=== PATIENT | female | born 1950 | race Caucasian/White ===

== ENCOUNTER → 2017-11-05 | Outpatient (REF) | payer BC, OTHER ==
[2017-11-05 19:31] LABS: SLIDE REVIEW Report; SOURCE PERIPHERAL SMEAR
[2017-11-05 20:34] LABS: ERYTHROCYTE SEDIMENTATION RATE 45 mm/hr (0-30)
[2017-11-07 14:15] LABS: ANTINUCLEAR ANTIBODIES DIRECT Negative (Negative)
== END ==
LOC: M LAB REF 17:14
DX: D72.829 Elevated white blood cell count, unspecified (principal)
CPT/HCPCS: 85652

== ENCOUNTER → 2018-08-27 | Outpatient (CLI) | payer MEDICARE ==
[~2018-08-27] MED LIST: AMBI5TAB PO; ASPI1TAB PO; ASPI81TA60 PO; AUGM875T28 PO; BASA100I PO; BIMA01SOL OU; COZA100T2 PO; D 1010004 PO; D200CAP3 PO; FERR325T16 PO; FISH5CAP PO; INSUH10VL SC; INSULADS SC; LIPI20TA PO; LOSA100T50 PO; LOSA50TA88 PO; METO5TAB2 PO; OMEP20CA3 PO; PRIL20CA9 PO; REGL5TAB2 PO; SILV1CRE60 TOP; TIMO5OPD OU; TYLE650T30 PO; VITA10002 PO; VITA100067 PO; VITA100T59 PO; VITA2000 PO
[2018-08-27 18:20] LABS: BASO # 0.2 10^3/uL (0.0-0.2); BASO % 1.1 % (0.0-1.0); EOS # 0.4 10^3/uL (0.0-0.50); EOS % 2.7 % (0.0-3.0); HEMATOCRIT 36.3 % (36.0-47.0); HEMOGLOBIN 11.5 g/dl (12.0-15.5); LYMPH % 21.1 % (24.0-44.0); MEAN CORPUSCULAR HGB CONC 31.7 g/dl (32.0-36.5); MEAN CORPUSCULAR VOLUME 97.8 fl (80.0-96.0); MONO % 7.3 % (0.0-5.0); NEUTROPHILS # 9.7 10^3/uL (1.8-7.7); NEUTROPHILS % 67.5 % (36.0-66.0); PLATELET COUNT, AUTOMATED 339 10^3/uL (150-450); RED BLOOD COUNT 3.71 10^6/uL (4.00-5.40); WHITE BLOOD COUNT 14.3 10^3/uL (4.0-10.0)
[2018-08-27 18:39] LABS: CALCIUM LEVEL 8.8 MG/DL (8.8-10.2); CREATININE FOR GFR 1.56 MG/DL (0.55-1.30); POTASSIUM SERUM 4.6 MEQ/L (3.5-5.1)
== END ==
LOC: M SMT 13:27
PROVIDERS: ATTEND Internal Medicine Cardiovascular Disease
DX: Z01.818 Encounter for other preprocedural examination (principal)

== ENCOUNTER 2018-09-03 07:37 | Day surgery (SDC) | payer MEDICARE ==
[~2018-09-03] VITALS: Ht 157.5 cm; Wt 110.7 kg
[2018-09-03] MEDS ORDERED: NS 1,000 ML IV ONE (08:45)
[2018-09-03] MEDS ORDERED: PROPOFOL 200 MG/20 ML VIAL As Ordered ONE ×2 (09:37→09:50)
[2018-09-03] MEDS ORDERED: LIDOCAINE 2% INJ 100 MG/5 ML SDV (FOR ANES.) As Ordered ONE (09:37)
--- NOTE | 2018-09-03 10:01 | ROOR ---
Patient Name: Heather Barreto Procedure Date: 09/03/2018 9:36 AM Date of : 1950 Age: 68 Room: [facility] Gender: Female Note Status: Finalized Procedure: Colonoscopy Indications: High risk colon cancer surveillance: Personal history of colonic polyps, Last colonoscopy: June 2015, Family history of colon cancer in a first-degree relative Providers: Magdaleno BLACKMON MD Referring MD: NATASHA CHANEY JR, MD Requesting Provider: Medicines: Monitored Anesthesia Care Complications: No immediate complications. Procedure: Pre-Anesthesia Assessment: - The heart rate, respiratory rate, oxygen saturations, blood pressure, adequacy of pulmonary ventilation, and response to care were monitored throughout the procedure. The Colonoscope was introduced through the anus and advanced to the cecum, identified by appendiceal orifice and ileocecal valve. The colonoscopy was performed without difficulty. The patient tolerated the procedure well. The quality of the bowel preparation was good. Findings: The perianal and digital rectal examinations were normal. Three sessile polyps were found in the splenic flexure and cecum. The polyps were 4 to 5 mm in size. These polyps were removed with a cold snare. Resection and retrieval were complete. Mild sigmoid diverticulosis and small internal hemorrhoids. The exam was otherwise without abnormality on direct and retroflexion views. Impression: - Three 4 to 5 mm polyps at the splenic flexure and in the cecum, removed with a cold snare. Resected and retrieved. - Mild sigmoid diverticulosis and small internal hemorrhoids. - The examination was otherwise normal on direct and retroflexion views. Recommendation: - Repeat colonoscopy in 3 years for surveillance. Magdaleno Blackmon MD Magdaleno BLACKMON MD 09/03/2018 10:01:12 AM This report has been signed electronically. Number of Addenda: 0 Note Initiated On: 09/03/2018 9:36 AM Estimated Blood Loss: Estimated blood loss: none.
[2018-09-03 10:26] VITALS: BP 117/58
== END 2018-09-03 10:37 | disposition home or self-care (01) ==
LOC: M OPP 07:37
PROVIDERS: ATTEND Internal Medicine Gastroenterology
DX: D12.0 Benign neoplasm of cecum (principal); D12.3 Benign neoplasm of transverse colon; K57.30 Diverticulosis of large intestine without perforation or abscess without bleeding; K64.8 Other hemorrhoids; Z86.010 Personal history of colon polyps; Z80.0 Family history of malignant neoplasm of digestive organs

== ENCOUNTER 2018-11-17 12:56 | Observation (INO) | payer MEDICARE ==
[~2018-11-17] VITALS: Ht 157.5 cm; Wt 114.1 kg
[~2018-11-17 12:56] MED LIST changes: -ASCO500T PO; -CENT1TAB PO; -COLA100C5 PO; -INSUDET SC; -INSUHUMDS SC; -LATA0.0015 OU; -METO1TAB87 PO; -OXYC1TAB23 PO; -WARF4TAB52 PO
[2018-11-17] MEDS ORDERED: WARF4TAB52 PO (13:26)
[2018-11-17] MEDS ORDERED: METO1TAB87 PO (13:26)
[2018-11-17] MEDS ORDERED: OXYC1TAB23 PO (13:26)
[2018-11-17] MEDS ORDERED: LATA0.0015 OU (13:26)
[2018-11-17] MEDS ORDERED: TIMO0.5S29 OU (13:26)
[2018-11-17] MEDS ORDERED: CENT1TAB PO (13:26)
[2018-11-17 14:00] LABS: BASO # 0.1 10^3/uL (0.0-0.2); BASO % 0.6 % (0.0-1.0); EOS # 0.1 10^3/uL (0.0-0.50); EOS % 0.3 % (0.0-3.0); HEMATOCRIT 29.8 % (36.0-47.0); HEMOGLOBIN 9.4 g/dl (12.0-15.5); LYMPH # 1.9 10^3/uL (1.5-4.5); LYMPH % 9.8 % (24.0-44.0); MEAN CORPUSCULAR HEMOGLOBIN 30.5 pg (27.0-33.0); MEAN CORPUSCULAR HGB CONC 31.5 g/dl (32.0-36.5); MEAN CORPUSCULAR VOLUME 96.8 fl (80.0-96.0); MONO # 1.3 10^3/uL (0.0-0.8); MONO % 6.5 % (0.0-5.0); NEUTROPHILS # 15.9 10^3/uL (1.8-7.7); NEUTROPHILS % 80.3 % (36.0-66.0); PLATELET COUNT, AUTOMATED 218 10^3/uL (150-450); RED BLOOD COUNT 3.08 10^6/uL (4.00-5.40); WHITE BLOOD COUNT 19.8 10^3/uL (4.0-10.0)
[2018-11-17 14:10] LABS: INR 2.34; PROTHROMBIN TIME 26.1 SECONDS (12.1-14.4)
[2018-11-17 14:11] LABS: PARTIAL THROMBOPLASTIN TIME 44.1 SECONDS (25.4-37.6)
[2018-11-17 14:33] LABS: ALBUMIN 2.9 GM/DL (3.2-5.2); BILIRUBIN,DIRECT 0.3 MG/DL (0.0-0.2); BILIRUBIN,TOTAL 0.7 MG/DL (0.2-1.0); CALCIUM LEVEL 8.5 MG/DL (8.8-10.2); CREATININE FOR GFR 1.04 MG/DL (0.55-1.30); GLOMERULAR FILTRATION RATE 55.9 (>45); MB/CK RELATIVE INDEX 5.23 (< OR =4); TROPONIN I 0.36 NG/ML (< 0.10)
--- NOTE | 2018-11-17 16:10 | REP ---
CT Head without contrast HISTORY: Altered mental status COMPARISON: None Areas of decreased attenuation are present in the periventricular white matter. This represents small-vessel ischemic disease. There is no intraparenchymal hemorrhage, acute infarct, mass or midline shift. The ventricular system and cortical sulci are dilated consistent with mild volume loss. There is no extra cerebral collection. There is no fracture. The visualized sinuses are clear. IMPRESSION: 1. Small vessel ischemic disease. 2. Mild volume loss. Electronically Signed by David Don MD 11/17/2018 04:00 P
[2018-11-17] MEDS ORDERED: WARFARIN SOD 1 MG TAB PO SCH (17:00)
--- NOTE | 2018-11-17 17:00 | REP ---
REASON: Leukocytosis. COMPARISON: Chest CT 01/19/2018. The examination was ordered and performed without intravenous contrast which decreases the sensitivity of the exam. There is respiratory motion artifact on all images further decreasing the exam. Patient also gives a history of recent surgery. Patient has a history of previous bariatric surgery with coronary arterial bypass and prostatic aortic valve replacement which has all taken place since prior exam. There is no evidence of mediastinal or hilar adenopathy. There is abnormal mediastinal widening with streaky densities along with air densities in the anterior mediastinum between the postoperative sternal changes and the anterior wall of the ascending aorta and anterior wall of the left brachiocephalic vein. This all represents a change from the prior exam. Note is made of multiple sternal wires from previous median sternotomy causing spray artifact obscuring the findings somewhat. There are small to moderate bilateral pleural effusions right greater than left. There is a small pericardial effusion. Limited evaluation of the imaged upper abdomen shows no gross abnormalities. Left upper quadrant postoperative changes are noted. There is significant motion artifact on all of those images. Evaluation of the osseous structures again shows sternal wires from previous medial sternotomy. There are spinal degenerative changes. Evaluation of the lung leroy shows respiratory motion artifact throughout the exam obscuring fine parenchymal detail. Patchy opacities are seen in the lung bases likely secondary to compressive subsegmental atelectatic changes and or inflammatory change from infectious etiology. IMPRESSION:1. Abnormal mediastinal widening and related anterior mediastinal findings of streaky opacities with air densities. My concern is that this represents infection, as such, I can not rule out the possibility of Sandip's angina. 2. Pleural effusions as described above. 3. Lung base opacities as described above. 4. Other findings and exam limitations as described above. A phone call was placed to Dr. Magdaleno Porter the patient's health care provider in the emergency room department to discuss these findings. Electronically Signed by Finesse Hodges DO 11/18/2018 03:26 P
[2018-11-17] MEDS ORDERED: COLA100C5 PO (17:56)
[2018-11-17] MEDS ORDERED: ASCO500T PO (17:56)
[2018-11-17] MEDS ORDERED: GLUCAGON FOR INJ 1 MG VIAL (J1610) SC PRN (18:00)
[2018-11-17] MEDS ORDERED: DEXTROSE 50% 50 ML SYRINGE IV PRN (18:00)
[2018-11-17] MEDS ORDERED: GLUCOSE 4 GM CHEW TABLET PO PRN (18:00)
--- NOTE | 2018-11-17 18:04 | HPEPDOC ---
General Date of Admission 11/17/18 Date of Service: November 17, 2018 Attending Physician: KIA KESSLER MD Chief Complaint The patient is a 68-year-old female admitted with a reason for visit of Low Bloo d Sugar. Source: Patient, Family Exam Limitations: No limitations Timing/Duration: 1-3 hours Severity: Moderate Associated Symptoms: Diaphoresis, Malaise, Dizziness History of Present Illness 68 years old white female with past medical history of bypass surgery with 2 wall replacement at [facility] about a week ago and she was discharged home from [facility] yesterday. Diaphoresis, confusion, slurred speech and was brought to ER, which she was found to have blood sugar of 28, and patient be admitted for follow-up of her fingerstick blood sugar. Patient takes regular long-acting insulin, but has decreased by mouth intake since the surgery. Home Medications Scheduled Ascorbic Acid (Ascorbic Acid) 500 Mg Tablet, 1,000 MG PO DAILY, (Reported) Aspirin (Aspirin EC) 81 Mg Tab, 81 MG PO DAILY, (Reported) Atorvastatin Calcium (Lipitor) 20 Mg Tab, 20 MG PO DAILY, (Reported) Cholecalciferol (Vitamin D3) (Vitamin D3) 2,000 Unit Cap, 2,000 UNIT PO DAILY, (Reported) Ferrous Gluconate (Ferrous Gluconate) 324 Mg Tab, 324 MG PO DAILY, (Reported) Insulin Glargine,Hum.rec.anlog (Basaglar Kwikpen U-100) 100 Unit/Ml Inj, 38 UNIT PO BID, (Reported) FAMILY STATES INSULINS MAY NEED TO BE ADJUSTED DUE TO LOW BLOOD SUGARS SINCE SURGERY AT [facility] Insulin Human Lispro (Novolog) 100 U/Ml Inj, 1 DOSE SC AC, (Reported) SLIDING SCALE - FAMILY STATES INSULINS MAY NEED TO BE ADJUSTED DUE TO LOW BLOOD SUGARS SINCE SURGERY AT [facility] Latanoprost/Pf (Latanoprost 0.005% Eye Drop) 7.5 Ml Drops, 1 DROP OU QHS, (Reported) Metoclopramide HCl (Metoclopramide HCl) 5 Mg Tab, 5 MG PO DAILY, (Reported) Metoprolol Tartrate (Metoprolol Tartrate) 25 Mg Tablet, 37.5 MG PO BID, (Reported) Multivit-Min/FA/Lycopen/Lutein (Centrum Silver Tablet) 1 Each Tablet, 1 TAB PO DAILY, (Reported) Omeprazole (Omeprazole) 20 Mg Cap, 40 MG PO DAILY, (Reported) Timolol Maleate (Timolol Maleate) 0.5% 5ML Drops, 1 DROP OU DAILY, (Reported) Warfarin Sodium (Warfarin Sodium) 1 Mg Tablet, 2 MG PO QPM, (Reported) Zolpidem Tartrate (Ambien) 5 Mg Tab, 5 MG PO QHS, (Reported) Scheduled PRN Docusate Sodium (Colace) 100 Mg Capsule, 100 MG PO DAILY PRN for CONSTIPATION, (Reported) Oxycodone HCl/Acetaminophen (Oxycodone-Acetaminophen 5-325) 1 Each Tablet, 1 TAB PO QID PRN for PAIN, (Reported) Allergies Coded Allergies: naproxen (Verified Allergy, Mild, Rash, 11/17/18) Past Medical History Medical History Diabetes mellitus, hypertension, hyperlipidemia Surgical History Hysterectomy, gastric bypass surgery and the coronary bypass surgery Social History * Smoker: former Smoker, quit greater than 1 year Alcohol: Denies A-FIB/CHADSVASC A-FIB History Current/History of A-Fib/PAF?: Yes Current Oral Anticoagulant The: Yes Review of Systems Constitutional: Reports: Chills, Malaise, Weakness, Fatigue Eyes: Denies: Pain, Vision change, Conjunctivae inflammation, Eyelid inflammation, Redness, Other ENT: Denies: Head Aches, Ear Pain, Dysphagia, Sinus Congestion, Post Nasal Drip, Sore Throat, Epistaxis, Other Symptoms Skin: Denies: Rash, Lesions, Jaundice, Bruising, Itching, Dry, Breakdown, Nail Changes, Other Pulmonary: Denies: Dyspnea, Cough, Pleuritic Chest Pain, Other Symptoms Cardiovascular: Denies: Chest Pain, Palpitations, Orthopnea, Paroxysmal Noc. Dyspnea, Edema, Lt Headedness, Other Symptoms Gastrointestinal: Denies: Nausea, Vomiting, Abdominal Pain, Diarrhea, Constipation, Melena, Hematochezia, Other Symptoms Genitourinary: Denies: Dysuria, Frequency, Incontinence, Hematuria, Retention, Other Symptoms Hematologic: Denies: Bruising, Bleeding Excessively, Petecchia, Purpura, Enlarged Lymph Nodes, Other Hematologic Endocrine: Denies: Polydipsia, Polyphagia, Polyuria, Heat Intolerance, Cold Intolerance, Other Endocrine Sx Musculoskeletal: Denies: Neck Pain, Back Pain, Shoulder Pain, Arm Pain, Hand Pain, Leg Pain, Foot Pain, Joint Pain, Muscle Pain, Spasms, Other Symptoms Neurological: Reports: Weakness, Numbness, Confusion; Denies: Incoordination, Change in speech, Seizures, Other Symptoms Psych: Denies: Mood Normal, Anxiety, Depression, Memory Issues, Thoughts of Self Harm, Anger, Thoughts of Harming Other, Other Psych Physical Examination General Exam: Positive: Alert, Cooperative Eye Exam: Positive: PERRLA, Conjunctiva & lids normal ENT Exam: Positive: Atraumatic, Mucous membr. moist/pink Neck Exam: Positive: Supple Chest Exam: Positive: Clear to auscultation, Normal air movement Heart Exam: Positive: Rate Normal, Normal S1 Abdomen Exam: Positive: Normal bowel sounds Skin Exam: Positive: Nl turgor and temperature Neuro Exam: Positive: Normal Gait, Cranial Nerves 3-12 NL Psych Exam: Positive: Mental status NL, Mood NL Vital Signs Vital Signs Date Time Temp Pulse Resp B/P (MAP) Pulse Ox O2 Delivery O2 Flow Rate FiO2 11/17/18 16:55 16 150/79 (102) 11/17/18 16:50 90 11/17/18 16:35 93 11/17/18 14:31 Room Air 11/17/18 13:18 96.3 Laboratory Data Labs 24H Laboratory Tests 2 11/17/18 13:06: Bedside Glucose (Misc Panel) 142H 11/17/18 13:07: Immature Granulocyte % (Auto) 2.5, White Blood Count 19.8H, Red Blood Count 3.08L, Hemoglobin 9.4L, Hematocrit 29.8L, Mean Corpuscular Volume 96.8H, Mean Corpuscular Hemoglobin 30.5, Mean Corpuscular Hemoglobin Concent 31.5L, Red Cell Distribution Width 13.9, Platelet Count 218, Neutrophils (%) (Auto) 80.3H, Lymph ocytes (%) (Auto) 9.8L, Monocytes (%) (Auto) 6.5H, Eosinophils (%) (Auto) 0.3, Basophils (%) (Auto) 0.6, Neutrophils # (Auto) 15.9H, Lymphocytes # (Auto) 1.9, Monocytes # (Auto) 1.3H, Eosinophils # (Auto) 0.1, Basophils # (Auto) 0.1, Nucleated Red Blood Cells % (auto) 0.0 11/17/18 13:36: Urine Color YELLOW, Urine Appearance HAZY, Urine pH 6.0, Urine Specific [place] 1.010, Urine Protein NEGATIVE, Urine Glucose (UA) NEGATIVE, Urine Ketones NEGATIVE, Urine Blood NEGATIVE, Urine Nitrite NEGATIVE, Urine Bilirubin NEGATIVE, Urine Urobilinogen 0.2, Urine Leukocyte Esterase TRACEH, Urine WBC (Auto) 3, Urine RBC (Auto) 2, Urine Hyaline Casts (Auto) 0, Urine Bacteria (Auto) 1+H, Urine Squamous Epithelial Cells 3, Urine Sperm (Auto) 11/17/18 13:42: Prothrombin Time 26.1H, Prothromb Time International Ratio 2.34, Activated Partial Thromboplast Time 44.1H, Anion Gap 7L, Glomerular Filtration Rate 55.9, Calcium Level 8.5L, Aspartate Amino Transf (AST/SGOT) 26, Alanine Aminotransferase (ALT/SGPT) 20, Alkaline Phosphatase 83, Total Bilirubin 0.7, Direct Bilirubin 0.3H, Total Creatine Kinase 44, Creatine Kinase MB 2.0, Creatine Kinase MB Relative Index 5.23H, Troponin I 0.36H, Total Protein 6.0L, Albumin 2.9L, Albumin/Globulin Ratio 0.94L 11/17/18 13:48: Bedside Glucose (Misc Panel) 124H CBC/BMP Laboratory Tests 11/17/18 13:07 Red Blood Count 3.08 L, Mean Corpuscular Volume 96.8 H, Mean Corpuscular Hemoglobin 30.5, Mean Corpuscular Hemoglobin Concent 31.5 L, Red Cell Distribution Width 13.9, Neutrophils (%) (Auto) 80.3 H, Lymphocytes (%) (Auto) 9.8 L, Monocytes (%) (Auto) 6.5 H, Eosinophils (%) (Auto) 0.3, Basophils (%) (Auto) 0.6, Neutrophils # (Auto) 15.9 H, Lymphocytes # (Auto) 1.9, Monocytes # (Auto) 1.3 H, Eosinophils # (Auto) 0.1, Basophils # (Auto) 0.1 11/17/18 13:42 Microbiology Microbiology 11/17/18 Blood Culture, Received Pending 11/17/18 Blood Culture, Received Pending 11/17/18 Urine Culture, Received Pending Problems (1) Hypoglycemia Status: Acute Response to Treatment: Stable Problem Text: Admit to also observation Telemetry monitoring Fingerstick blood sugar every before meals and at bedtime with regular insulin coverage Continue all home meds except long-acting insulins once the pharmacy has completed med rec , Coumadin 2 mg by mouth daily at bedtime CBC, CMP and INR in a.m. Out of bed as tolerated Carbohydrate consistent diet Patient already on anticoagulation. No need for further anticoagulation for DVT prophylaxis Plan / VTE VTE Prophylaxis Ordered?: Yes KIA KESSLER MD November 17, 2018 18:04
[2018-11-17] MEDS ORDERED: DOCUSATE SODIUM 100 MG CAP PO PRN (18:15)
[2018-11-17] MEDS ORDERED: PILL CUTTER 1 EACH XX PRN (18:15)
[2018-11-17] MEDS: HumaLOG INSULIN (NovoLOG) PER UNIT SC SCH ×2 (18:17→21:00)
[2018-11-17] MEDS: WARFARIN SOD 2 MG TAB PO SCH (19:05)
[2018-11-17 20:00] VITALS: BP 169/72
[2018-11-17] MEDS: PERCOCET 5MG/325MG TAB PO PRN (21:17)
[2018-11-17] MEDS: zolPIDEM TARTRATE 5 MG TAB PO SCH (21:18)
[2018-11-17] MEDS: METOPROLOL TART 25 MG TABLET PO SCH (21:18)
[2018-11-18 06:00] VITALS: BP 114/58
[2018-11-18 06:02] LABS: HEMATOCRIT 26.9 % (36.0-47.0); HEMOGLOBIN 8.4 g/dl (12.0-15.5); MEAN CORPUSCULAR HEMOGLOBIN 29.6 pg (27.0-33.0); MEAN CORPUSCULAR HGB CONC 31.2 g/dl (32.0-36.5); MEAN CORPUSCULAR VOLUME 94.7 fl (80.0-96.0); PLATELET COUNT, AUTOMATED 244 10^3/uL (150-450); RED BLOOD COUNT 2.84 10^6/uL (4.00-5.40); WHITE BLOOD COUNT 15.5 10^3/uL (4.0-10.0)
--- NOTE | 2018-11-18 06:08 | ECGEPIP ---
[facility] - ED Test Date: 2018-11-17 Pat Name: MARIA DEL ROSARIO RUEDA Department: Room: - Gender: F Underwriting Sales Representative: CT : 1950 Requested By: DAVI Almeida Order Number: [id number] Reading MD: Charlie Santamaria Measurements Intervals Plush Rate: 82 P: FL: 0 QRS: 57 QRSD: 106 T: 52 QT: 414 QTc: 484 Interpretive Statements ATRIAL FIBRILLATION NO PRIORS FOR COMPARISON Electronically Signed on 11-18-2018 6:08:28 EDT by Charlie Santamaria
[2018-11-18 06:10] LABS: INR 2.58; PROTHROMBIN TIME 28.2 SECONDS (12.1-14.4)
[2018-11-18 06:13] LABS: CALCIUM LEVEL 8.3 MG/DL (8.8-10.2); CREATININE FOR GFR 1.23 MG/DL (0.55-1.30); GLOMERULAR FILTRATION RATE 46.1 (>45); MAGNESIUM LEVEL 1.8 MG/DL (1.8-2.4); POTASSIUM SERUM 3.8 MEQ/L (3.5-5.1)
[2018-11-18] MEDS: VITAMIN D 1,000 INTERNATIONAL UNITS TABLET PO SCH (08:02)
[2018-11-18] MEDS: OMEPRAZOLE 20 MG CAP PO SCH (08:02)
[2018-11-18] MEDS: MULTIVITAMINS/MINERALS THERAP 1 TAB PO SCH (08:02)
[2018-11-18] MEDS: ATORVASTATIN 20 MG TAB PO SCH (08:02)
[2018-11-18] MEDS: METOCLOPRAMIDE 5 MG TAB PO SCH (08:02)
[2018-11-18] MEDS: PERCOCET 5MG/325MG TAB PO PRN ×2 (08:02→18:44)
[2018-11-18] MEDS: FERROUS GLUCONATE 324 MG TAB PO SCH (08:03)
[2018-11-18] MEDS: ASCORBIC ACID 500 MG TAB PO SCH (08:03)
[2018-11-18] MEDS: ASPIRIN 81 MG ENTERIC TAB PO SCH (08:03)
[2018-11-18] MEDS: METOPROLOL TART 25 MG TABLET PO SCH ×2 (08:06→21:03)
--- NOTE | 2018-11-18 11:03 | IPNPDOC ---
Subjective Date Seen The patient was seen on 11/18/18. Subjective Chief Complaint/HPI Patient comfortable offers no new complaints. Patient was hyperglycemic again this morning General: Denies: ROS Unobtainable, Chills, Night Sweats, Fatigue, Malaise, Normal Appetite, Other Symptoms Constitutional: Denies: Chills, Fever, Malaise, Night Sweats, Weakness, Fatigue, Weight Loss, Lethargy, Other Eyes: Denies: Pain, Vision change, Conjunctivae inflammation, Eyelid in flammation, Redness, Other ENT: Denies: Head Aches, Ear Pain, Dysphagia, Sinus Congestion, Post Nasal Drip, Sore Throat, Epistaxis, Other Symptoms Skin: Denies: Rash, Lesions, Jaundice, Bruising, Itching, Dry, Breakdown, Nail Changes, Other Pulmonary: Denies: Dyspnea, Cough, Pleuritic Chest Pain, Other Symptoms Cardiovascular: Denies: Chest Pain, Palpitations, Orthopnea, Paroxysmal Noc. Dyspnea, Edema, Lt Headedness, Other Symptoms Gastrointestinal: Denies: Nausea, Vomiting, Abdominal Pain, Diarrhea, Constipation, Melena, Hematochezia, Other Symptoms Genitourinary: Denies: Dysuria, Frequency, Incontinence, Hematuria, Retention, Other Symptoms Hematologic: Denies: Bruising, Bleeding Excessively, Petecchia, Purpura, Enlarged Lymph Nodes, Other Hematologic Endocrine: Denies: Polydipsia, Polyphagia, Polyuria, Heat Intolerance, Cold Intolerance, Other Endocrine Sx Musculoskeletal: Denies: Neck Pain, Back Pain, Shoulder Pain, Arm Pain, Hand Pain, Leg Pain, Foot Pain, Joint Pain, Muscle Pain, Spasms, Other Symptoms Neurological: Denies: Weakness, Numbness, Incoordination, Change in speech, Confusion, Seizures, Other Symptoms Psych: Denies: Mood Normal, Anxiety, Depression, Memory Issues, Thoughts of Self Harm, Anger, Thoughts of Harming Other, Other Psych Objective Physical Examination General Exam: Positive: Alert, Cooperative Eye Exam: Positive: PERRLA, Conjunctiva & lids normal ENT Exam: Positive: Atraumatic, Mucous membr. moist/pink Neck Exam: Positive: Supple Chest Exam: Positive: Clear to auscultation, Normal air movement Heart Exam: Positive: Rate Normal, Normal S1 Abdomen Exam: Positive: Normal bowel sounds Skin Exam: Positive: Nl turgor and temperature Neuro Exam: Positive: Normal Gait, Cranial Nerves 3-12 NL Psych Exam: Positive: Mental status NL, Mood NL A-FIB/CHADSVASC A-FIB History Current/History of A-Fib/PAF?: No Assessment /Plan Problems (1) Hypoglycemia Status: Acute Response to Treatment: Stable Problem Text: Patient was hyperglycemic again this morning with low blood sugar . She will be kept observation 24 more hours Long acting insulin is on hold Fingerstick blood sugar with coverage Possible discharge in a.m. Plan/VTE VTE Prophylaxis Ordered?: No VS, I&O, 24H, Fishbone Vital Signs/I&O Vital Signs Date Time Temp Pulse Resp B/P (MAP) Pulse Ox O2 Delivery O2 Flow Rate FiO2 11/18/18 08:45 18 11/18/18 08:06 99 140/63 11/18/18 06:00 96.8 95 11/17/18 19:16 Room Air I&O- Last 24 Hours up to 6 AM 11/18/18 06:00 Intake Total 120 ml Output Total 0 ml Balance 120 ml Laboratory Data 24H LABS Laboratory Tests 2 11/17/18 13:06: Bedside Glucose (Misc Panel) 142H 11/17/18 13:07: Immature Granulocyte % (Auto) 2.5, White Blood Count 19.8H, Red Blood Count 3.0 8L, Hemoglobin 9.4L, Hematocrit 29.8L, Mean Corpuscular Volume 96.8H, Mean Corpuscular Hemoglobin 30.5, Mean Corpuscular Hemoglobin Concent 31.5L, Red Cell Distribution Width 13.9, Platelet Count 218, Neutrophils (%) (Auto) 80.3H, Lymphocytes (%) (Auto) 9.8L, Monocytes (%) (Auto) 6.5H, Eosinophils (%) (Auto) 0.3, Basophils (%) (Auto) 0.6, Neutrophils # (Auto) 15.9H, Lymphocytes # (Auto) 1.9, Monocytes # (Auto) 1.3H, Eosinophils # (Auto) 0.1, Basophils # (Auto) 0.1, Nucleated Red Blood Cells % (auto) 0.0 11/17/18 13:36: Urine Color YELLOW, Urine Appearance HAZY, Urine pH 6.0, Urine Specific [place] 1.010, Urine Protein NEGATIVE, Urine Glucose (UA) NEGATIVE, Urine Ketones NEGATIVE, Urine Blood NEGATIVE, Urine Nitrite NEGATIVE, Urine Bilirubin NEGATIVE, Urine Urobilinogen 0.2, Urine Leukocyte Esterase TRACEH, Urine WBC (Auto) 3, Urine RBC (Auto) 2, Urine Hyaline Casts (Auto) 0, Urine Bacteria (Auto) 1+H, Urine Squamous Epithelial Cells 3, Urine Sperm (Auto) 11/17/18 13:42: Prothrombin Time 26.1H, Prothromb Time International Ratio 2.34, Activated Partial Thromboplast Time 44.1H, Anion Gap 7L, Glomerular Filtration Rate 55.9, Calcium Level 8.5L, Aspartate Amino Transf (AST/SGOT) 26, Alanine Aminotransferase (ALT/SGPT) 20, Alkaline Phosphatase 83, Total Bilirubin 0.7, Direct Bilirubin 0.3H, Total Creatine Kinase 44, Creatine Kinase MB 2.0, Creatine Kinase MB Relative Index 5.23H, Troponin I 0.36H, Total Protein 6.0L, Albumin 2.9L, Albumin/Globulin Ratio 0.94L 11/17/18 13:48: Bedside Glucose (Misc Panel) 124H 11/17/18 18:16: Bedside Glucose (Misc Panel) 46L 11/17/18 18:34: Bedside Glucose (Misc Panel) 77L 11/17/18 18:52: Bedside Glucose (Misc Panel) 84 11/17/18 20:36: Bedside Glucose (Misc Panel) 153H 11/18/18 05:27: Nucleated Red Blood Cells % (auto) 0.0, Prothrombin Time 28.2H, Prothromb Time International Ratio 2.58, Anion Gap 7L, Glomerular Filtration Rate 46.1, Blood Urea Nitrogen 30H, Creatinine 1.23, Sodium Level 140, Potassium Level 3.8, Chloride Level 101, Carbon Dioxide Level 32, Calcium Level 8.3L, Magnesium Level 1.8 CBC/BMP Laboratory Tests 11/17/18 13:07 Red Blood Count 3.08 L, Mean Corpuscular Volume 96.8 H, Mean Corpuscular Hemoglobin 30.5, Mean Corpuscular Hemoglobin Concent 31.5 L, Red Cell Distribution Width 13.9, Neutrophils (%) (Auto) 80.3 H, Lymphocytes (%) (Auto) 9.8 L, Monocytes (%) (Auto) 6.5 H, Eosinophils (%) (Auto) 0.3, Basophils (%) (Auto) 0.6, Neutrophils # (Auto) 15.9 H, Lymphocytes # (Auto) 1.9, Monocytes # (Auto) 1.3 H, Eosinophils # (Auto) 0.1, Basophils # (Auto) 0.1 11/17/18 13:42 11/18/18 05:27 Red Blood Count 2.84 L, Mean Corpuscular Volume 94.7, Mean Corpuscular Hemoglobin 29.6, Mean Corpuscular Hemoglobin Concent 31.2 L, Red Cell Distribution Width 13.9, Calcium Level 8.3 L Microbiology Microbiology 11/17/18 Blood Culture, Received Pending 11/17/18 Blood Culture, Received Pending 11/17/18 Urine Culture, Received Pending KIA KESSLER MD November 18, 2018 11:03
[2018-11-18] MEDS: HumaLOG INSULIN (NovoLOG) PER UNIT SC SCH ×3 (12:04→21:00)
[2018-11-18 14:00] VITALS: BP 96/53
[2018-11-18] MEDS: WARFARIN SOD 2 MG TAB PO SCH (17:04)
[2018-11-18] MEDS ORDERED: LIDOCAINE 5% (LIDODERM) PATCH TD SCH (21:00)
[2018-11-18] MEDS: zolPIDEM TARTRATE 5 MG TAB PO SCH (21:04)
[2018-11-18 22:00] VITALS: BP 132/64
[2018-11-19] MEDS: PERCOCET 5MG/325MG TAB PO PRN (04:00)
[2018-11-19 06:00] VITALS: BP 141/73
[2018-11-19 06:19] LABS: INR 3.09; PROTHROMBIN TIME 32.6 SECONDS (12.1-14.4)
[2018-11-19] MEDS ORDERED: **NOTE PATIENT COMMENT** MISC XX SCH (09:00)
[2018-11-19] MEDS: HumaLOG INSULIN (NovoLOG) PER UNIT SC SCH ×2 (09:01→12:47)
[2018-11-19] MEDS: FERROUS GLUCONATE 324 MG TAB PO SCH (09:01)
[2018-11-19] MEDS: ATORVASTATIN 20 MG TAB PO SCH (09:02)
[2018-11-19] MEDS: ASCORBIC ACID 500 MG TAB PO SCH (09:02)
[2018-11-19] MEDS: OMEPRAZOLE 20 MG CAP PO SCH (09:02)
[2018-11-19] MEDS: ASPIRIN 81 MG ENTERIC TAB PO SCH (09:02)
[2018-11-19] MEDS: METOCLOPRAMIDE 5 MG TAB PO SCH (09:02)
[2018-11-19] MEDS: VITAMIN D 1,000 INTERNATIONAL UNITS TABLET PO SCH (09:02)
[2018-11-19] MEDS: MULTIVITAMINS/MINERALS THERAP 1 TAB PO SCH (09:02)
[2018-11-19 09:06] VITALS: BP 120/60
[2018-11-19] MEDS: METOPROLOL TART 25 MG TABLET PO SCH (09:06)
[2018-11-19] MEDS ORDERED: INSUDET SC (10:40)
[2018-11-19] MEDS ORDERED: INSUHUMDS SC ×2 (10:40)
--- NOTE | 2018-11-19 13:46 | DS.PDOC ---
Discharge Summary General Date of Admission November 17, 2018 at 17:50 Date of Discharge 11/19/18 Attending Physician: KIA KESSLER MD Discharge Summary PROCEDURES PERFORMED DURING STAY: [None]. ADMITTING DIAGNOSES: 1. [Hypoglycemia]. DISCHARGE DIAGNOSES: 1. [Progressively]. COMPLICATIONS/CHIEF COMPLAINT: Hypoglcemia. HISTORY OF PRESENT ILLNESS: [68 years old white female with past medical history of bypass surgery with 2 wall replacement at [facility] about a week ago and she was discharged home from [facility] yesterday. Diaphoresis, confusion, slurred speech and was brought to ER, which she was found to have blood sugar of 28, and patient be admitted for follow-up of her fingerstick blood sugar. Patient takes regular long-acting insulin, but has decreased by mouth intake since the surgery.]. HOSPITAL COURSE: [Patient was admitted with the diagnosis of hypoglycemia. Patient has not been eating very well after surgery but she is been taking full- strength, Lantus and her fingerstick coverage as prescribed by her PCP. Patient's Lantus was on hold. She still had a hypoglycemic event Date, but today this morning she is within normal range and the Lantus dose has been reduced to half. And she'll be discharged on half the dose of her Lantus and a fingerstick blood sugar coverage is with by me and follow with her PCP as soon as possible. Patient also been advised to to get a PT/INR done tomorrow as because of upcoming long weekend she might not be able to get her blood test and. Her Coumadin dose will be adjusted according to her PT/INR by her PCP]. DISCHARGE MEDICATIONS: Please see below. ALLERGIES: Please see below. PHYSICAL EXAMINATION ON DISCHARGE: VITAL SIGNS: Please see below. GENERAL: [Within normal limits] HEENT: PERRLA NECK: [Supple, no JVD, no lymphadenopathy] CARDIOVASCULAR EXAMINATION: [S1, S2, regular] RESPIRATORY EXAMINATION: [Here to A&P. No added sound] ABDOMINAL EXAMINATION: [Benign] EXTREMITIES: [No clubbing, cyanosis, edema] SKIN: [Within normal level] NEUROLOGICAL EXAMINATION: [. No focal motor sensory deficit] PSYCHIATRIC EXAMINATION: [Within normal limits] LABORATORY DATA: Please see below. IMAGING: [As above] PROGNOSIS: [Good] ACTIVITY: [As tolerated]. DIET: [Low-carb diet] DISCHARGE PLAN: [To home. ] DISPOSITION: . Home DISCHARGE INSTRUCTIONS: 1. [As above]. ITEMS TO FOLLOWUP ON ON OUTPATIENT: 1. [As above]. DISCHARGE CONDITION: [Stable]. TIME SPENT ON DISCHARGE: Greater than [35] minutes. Vital Signs/I&Os Vital Signs Date Time Temp Pulse Resp B/P (MAP) Pulse Ox O2 Delivery O2 Flow Rate FiO2 11/19/18 09:06 96 120/60 11/19/18 06:00 97.0 17 94 11/17/18 19:16 Room Air I&O- Last 24 Hours up to 6 AM 11/19/18 06:00 Intake Total 2370 ml Output Total 0 ml Balance 2370 ml Laboratory Data Labs 24H Laboratory Tests 2 11/18/18 16:37: Bedside Glucose (Misc Panel) 190H 11/18/18 20:45: Bedside Glucose (Misc Panel) 331H 11/19/18 03:45: Bedside Glucose (Misc Panel) 142H 11/19/18 05:32: Prothrombin Time 32.6H, Prothromb Time International Ratio 3.09 11/19/18 06:21: Bedside Glucose (Misc Panel) 146H 11/19/18 11:39: Bedside Glucose (Misc Panel) 191H FSBS Laboratory Tests Test 11/18/18 16:37 11/18/18 20:45 11/19/18 03:45 11/19/18 06:21 Range/Units Bedside Glucose (Misc Panel) 190 331 142 146 80-115 MG/DL Test 11/19/18 11:39 Range/Units Bedside Glucose (Misc Panel) 191 80-115 MG/DL Microbiology Microbiology 11/17/18 Blood Culture - Preliminary, Resulted No growth after 24 hours . All specim... 11/17/18 Blood Culture - Preliminary, Resulted No growth after 24 hours . All specim... 11/17/18 Urine Culture - Preliminary, Resulted Escherichia Coli Discharge Medications Scheduled Ascorbic Acid (Ascorbic Acid) 500 Mg Tablet, 1,000 MG PO DAILY, (Reported) Aspirin (Aspirin EC) 81 Mg Tab, 81 MG PO DAILY, (Reported) Atorvastatin Calcium (Lipitor) 20 Mg Tab, 20 MG PO DAILY, (Reported) Cholecalciferol (Vitamin D3) (Vitamin D3) 2,000 Unit Cap, 2,000 UNIT PO DAILY, (Reported) Ferrous Gluconate (Ferrous Gluconate) 324 Mg Tab, 324 MG PO DAILY, (Reported) Insulin Detemir (Levemir) 100 Unit/1 Ml Vial, 18 UNITS SC BID Insulin Human Lispro (Humalog) 100 Unit/1 Ml Vial, 0 UNITS SC QHS <200 noverage 201-250, 2 units SQ 251-300, 4 units SQ 301-350, 6 units SQ 351-400, 8 units SQ >400, 10 ubits SQ Insulin Human Lispro (Humalog) 100 Unit/1 Ml Vial, 0 UNITS SC AC <200 noverage 201-250, 2 units SQ 251-300, 4 units SQ 301-350, 6 units SQ 351-400, 8 units SQ >400, 10 ubits SQ Latanoprost/Pf (Latanoprost 0.005% Eye Drop) 7.5 Ml Drops, 1 DROP OU QHS, (Reported) Metoclopramide HCl (Metoclopramide HCl) 5 Mg Tab, 5 MG PO DAILY, (Reported) Metoprolol Tartrate (Metoprolol Tartrate) 25 Mg Tablet, 37.5 MG PO BID, (Reported) Multivit-Min/FA/Lycopen/Lutein (Centrum Silver Tablet) 1 Each Tablet, 1 TAB PO DAILY, (Reported) Omeprazole (Omeprazole) 20 Mg Cap, 40 MG PO DAILY, (Reported) Timolol Maleate (Timolol Maleate) 0.5% 5ML Drops, 1 DROP OU DAILY, (Reported) Warfarin Sodium (Warfarin Sodium) 1 Mg Tablet, 2 MG PO QPM, (Reported) Zolpidem Tartrate (Ambien) 5 Mg Tab, 5 MG PO QHS, (Reported) Scheduled PRN Docusate Sodium (Colace) 100 Mg Capsule, 100 MG PO DAILY PRN for CONSTIPATION, (Reported) Oxycodone HCl/Acetaminophen (Oxycodone-Acetaminophen 5-325) 1 Each Tablet, 1 TAB PO QID PRN for PAIN, (Reported) Allergies Coded Allergies: naproxen (Verified Allergy, Mild, Rash, 11/17/18) KIA KESSLER MD November 19, 2018 13:46
== END 2018-11-19 14:45 | disposition home or self-care (01) ==
LOC: EDBD 12:56 → M ED 12:56 → EDSEX 12:56 → M ED INP 17:50 → M MSPAV 19:59
PROVIDERS: ADMIT Internal Medicine; ATTEND Internal Medicine
DX: E11.649 Type 2 diabetes mellitus with hypoglycemia without coma (principal); Z98.890 Other specified postprocedural states; I10 Essential (primary) hypertension; E78.5 Hyperlipidemia, unspecified; Z98.84 Bariatric surgery status; Z95.1 Presence of aortocoronary bypass graft; Z87.891 Personal history of nicotine dependence; Z79.899 Other long term (current) drug therapy; Z79.82 Long term (current) use of aspirin; Z79.4 Long term (current) use of insulin; Z79.01 Long term (current) use of anticoagulants; Z88.8 Allergy status to other drugs, medicaments and biological substances; I25.10 Atherosclerotic heart disease of native coronary artery without angina pectoris
CPT/HCPCS: 36415; 70450; 71250; 80048; 80076; 81001; 82550; 82553; 83735; 84484; 85025; 85027; 85610; 85730; 87040; 87088; 87186; 93005; 93041; 97162; 97530; 99285; G0378

== ENCOUNTER → 2018-11-17 | Outpatient (REF) | payer MEDICARE ==
[~2018-11-17] MED LIST changes: +ASCO500T PO; -ASPI1TAB PO; +ASPI81TA26 PO; +CENT1TAB PO; +COLA100C5 PO; +INSUDET SC; +INSUHUMDS SC; +LATA0.0015 OU; +METO1TAB87 PO; +OXYC1TAB23 PO; +TIMO0.5S29 OU; -TIMO5OPD OU; +WARF4TAB52 PO
[2018-11-17 13:01] LABS: INR 2.19; PROTHROMBIN TIME 24.8 SECONDS (12.1-14.4)
== END ==
LOC: M LABDRWAD 12:25
PROVIDERS: ATTEND Internal Medicine Cardiovascular Disease
DX: I25.10 Atherosclerotic heart disease of native coronary artery without angina pectoris (principal)

== ENCOUNTER → 2018-11-20 | Outpatient (REF) | payer MEDICARE ==
[~2018-11-20] MED LIST changes: +ASCO500T PO; +CENT1TAB PO; +COLA100C5 PO; +INSUDET SC; +INSUHUMDS SC; +LATA0.0015 OU; +METO1TAB87 PO; +OXYC1TAB23 PO; +WARF4TAB52 PO
[2018-11-20 15:29] LABS: INR 1.91; PROTHROMBIN TIME 22.2 SECONDS (12.1-14.4)
== END ==
LOC: M LAB REF 15:12
PROVIDERS: ATTEND Internal Medicine
DX: Z95.4 Presence of other heart-valve replacement (principal)

== ENCOUNTER 2018-12-25 10:19 | Outpatient (RCR) | payer MEDICARE ==
--- NOTE | 2018-12-11 11:00 | CARECAPL ---
Assessment Account #s: Initial Assessment General Diagnoses: CABG, MVR, AVR Date of event: November 09, 2018 Physician: Nael Khan MD Allergies: Coded Allergies: naproxen (Verified Allergy, Mild, Rash, 11/17/18) Date Entered Program: Dec 11, 2018 Risk strat for cardiac event: High Exercise Prescription Plan educate and increase endurance and flexibility through monitored exercise Modalities initiated: Nustep (will resistance 1 for 6 minutes), Arm Aerometer (will add resistance of 1 for 4 minutes), Dumbells (will add 1lb weights ), Re cumbent Bike (will add resistace of 1 for 4 minutes) Frequency: 2-3 Duration (Minutes) 30-60 minutes total exercise a day. 4-12 work intervals in minutes. prn rest intervals in minutes. Functional Capacity Goal Sustained Metabolic Equivalent of a task (MET) goal of for minutes. Intensity: 3-Moderate Progression (METS) Increase by: 0.5 METS every: 3-5 sessions Angina with ex: No Target Heart Rate rest + 35-40 per beta latricia therapy Resistance Training: Yes Weight (pounds): 1 Reps: 6-8 Hypertension: No Hypertension controlled with: Medication (metoprolol) Resting 105/54 Medications Scheduled Ascorbic Acid (Ascorbic Acid), 1,000 MG PO DAILY, (Reported) Aspirin (Aspirin EC), 81 MG PO DAILY, (Reported) Atorvastatin Calcium (Lipitor), 20 MG PO DAILY, (Reported) Cholecalciferol (Vitamin D3) (Vitamin D3), 2,000 UNIT PO DAILY, (Reported) Ferrous Gluconate (Ferrous Gluconate), 324 MG PO DAILY, (Reported) Insulin Detemir (Levemir), 18 UNITS SC BID Insulin Human Lispro (Humalog), 0 UNITS SC QHS Insulin Human Lispro (Humalog), 0 UNITS SC AC Latanoprost/Pf (Latanoprost 0.005% Eye Drop), 1 DROP OU QHS, (Reported) Metoclopramide HCl (Metoclopramide HCl), 5 MG PO DAILY, (Reported) Metoprolol Tartrate (Metoprolol Tartrate), 37.5 MG PO BID, (Reported) Multivit-Min/FA/Lycopen/Lutein (Centrum Silver Tablet), 1 TAB PO DAILY, (Reported) Omeprazole (Omeprazole), 40 MG PO DAILY, (Reported) Timolol Maleate (Timolol Maleate), 1 DROP OU DAILY, (Reported) Warfarin Sodium (Warfarin Sodium), 2 MG PO QPM, (Reported) Zolpidem Tartrate (Ambien), 5 MG PO QHS, (Reported) Scheduled PRN Docusate Sodium (Colace), 100 MG PO DAILY PRN for CONSTIPATION, (Reported) Discontinued Medications Oxycodone HCl/Acetaminophen (Oxycodone-Acetaminophen 5-325), 1 TAB PO QID PRN for PAIN, (Reported) Discontinued Reason: Pt states not taking Target Goals Individual exercise Rx (1) BP 140/90 or 130/80 if DM or CKD (1) Aerobic active 30+min 5 days per week (1) Nutrition Date: Dec 11, 2018 Assessment: Initial Assessment Lipids Total Cholesterol, High Density Lipids (HDL), Triglycerides Lipid- med/supplement atorvastatin Diabetes medication levemir and novolog Monitor Blood Sugar at home: Yes Frequency AC and HS Weight Management Weight (lbs): 229.8 Height (inches): 62 Waist Circumference (Inches): 52 BMI: 41.88 Weight goal: 160 Special Diet: low salt, low-fat Vitamin/Supplements: Vitamin C, Vitamin D Alcohol: none Diet Access Tool: Rate your plate Score: 49 Referral to Diabetes education: No Referral to lipid clinic: No Referral to weight mangement p: No Target goal LDL-C<100 if triglycerides are >200 Non-HDL-C should be <130 (1) LDL-C<70 for high risk patients (4) HbA1c<7% (1) BMI<25 Waist cir<40in M/<35in F (1) Education Date: Dec 11, 2018 Assessment: Initial Assessment Learning Barriers: cognitive (age related) Knowledge Test Score: 8 Family Support: Yes Tobacco use: No Quit: >6 months (quit 30 years ago 1 pack per day) Tobacco Use Smokeless tobacco: No Intervention Referral to smoking cessation: No Individual education and couns: No Tobacco Adjunct: No Education class schedule given: No Attended education classes: No Target Goals Complete cessation of tobacco use (1). Psychosocial Date: Dec 11, 2018 Assessment: Initial Assessment Psych Test (Initial/Discharge) Tool Used: CESD Score: 8 Intervention Physician Consult: No Physician Referral: No Psychotropic medication none Target Goal Assess presence or absence of depression using a valid screening tool (1). Maximize coping skills (2). Positive support system (2). Patient/Program Goal Preventative Medication: Yes Aspirin, Yes Beta blockade, Yes Statin/OTR lipid Lowering, Yes Other (lasix) Fall Risk Assess: Yes (fall risk) Provider Assessment Provider Assessment: Proceed with rehab Nga Mullins RN Dec 11, 2018 11:00
== END 2018-12-27 ==
LOC: M CR 10:19
PROVIDERS: ATTEND Internal Medicine Cardiovascular Disease
DX: Z95.2 Presence of prosthetic heart valve (principal)

== ENCOUNTER → 2018-12-30 | Outpatient (CLI) | payer MEDICARE ==
[~2018-12-30] MED LIST changes: +CYAN100049 PO; -OMEP20CA3 PO; +OMEP20CA4 PO; -VITA10002 PO
== END ==
LOC: M LABDRWAD 14:37
PROVIDERS: ATTEND Internal Medicine Medical Oncology
DX: D64.9 Anemia, unspecified (principal)

== ENCOUNTER → 2019-01-04 | Outpatient (CLI) | payer MEDICARE ==
[~2019-01-04] MED LIST changes: +BASA100I SC; +IRON15CH PO
[2019-01-04 19:43] LABS: HEMATOCRIT 34.6 % (36.0-47.0); HEMOGLOBIN 10.6 g/dl (12.0-15.5); MEAN CORPUSCULAR HEMOGLOBIN 28.7 pg (27.0-33.0); MEAN CORPUSCULAR HGB CONC 30.6 g/dl (32.0-36.5); MEAN CORPUSCULAR VOLUME 93.8 fl (80.0-96.0); PLATELET COUNT, AUTOMATED 220 10^3/uL (150-450); RED BLOOD COUNT 3.69 10^6/uL (4.00-5.40)
== END ==
LOC: M LABDRWAD 13:32
PROVIDERS: ATTEND Internal Medicine Medical Oncology
DX: D72.829 Elevated white blood cell count, unspecified (principal)

== ENCOUNTER → 2019-01-27 | Outpatient (RCR) | payer MEDICARE ==
--- NOTE | 2019-01-04 14:45 | CARECAPL ---
Assessment Account #s: Re-Assessment I General Diagnoses: CABG, MVR, AVR Date of event: November 09, 2018 Physician: Nael Cherry MD Allergies: Coded Allergies: naproxen (Verified Allergy, Mild, Rash, 11/17/18) Date Entered Program: Dec 11, 2018 Risk strat for cardiac event: High Exercise Date: Jan 04, 2019 Assessment: Re-Assessment I Exercise Prescription Plan TO EDUCATE AND BUILD ENDURANCE THROUGH MONITORED EXERCISE Modalities initiated: Cardio-Strider (METS=2.2/RPE=3), Nustep (METS=2.8/RPE=3), Arm Aerometer (METS=1.5/RPE=3), Dumbells (2#/RPE=3) Frequency: 3 Duration (Minutes) 30-60 minutes total exercise a day. 10-15 work intervals in minutes. 5 MIN PRN rest intervals in minutes. Functional Capacity Goal Sustained Metabolic Equivalent of a task (MET) goal of 2.25-3.0 for 15-20 minutes. Intensity: 3-Moderate Progression (METS) Increase by: 0.5 METS every: 5 sessions TOLERATED Angina with ex: No Target Heart Rate REST +35-40 Resistance Training: Yes Weight (pounds): 2 Reps: 8-12 Hypertension: Yes Hypertension controlled with: Medication Resting 104/68 Peak Exercise BP 138/72 Medications Scheduled Ascorbic Acid (Ascorbic Acid), 1,000 MG PO DAILY, (Reported) Aspirin (Aspirin EC), 81 MG PO DAILY, (Reported) Atorvastatin Calcium (Lipitor), 20 MG PO DAILY, (Reported) Cholecalciferol (Vitamin D3) (Vitamin D3), 2,000 UNIT PO DAILY, (Reported) Ferrous Gluconate (Ferrous Gluconate), 324 MG PO DAILY, (Reported) Insulin Detemir (Levemir), 18 UNITS SC BID Insulin Human Lispro (Humalog), 0 UNITS SC QHS Insulin Human Lispro (Humalog), 0 UNITS SC AC Latanoprost/Pf (Latanoprost 0.005% Eye Drop), 1 DROP OU QHS, (Reported) Metoclopramide HCl (Metoclopramide HCl), 5 MG PO DAILY, (Reported) Metoprolol Tartrate (Metoprolol Tartrate), 37.5 MG PO BID, (Reported) Multivit-Min/FA/Lycopen/Lutein (Centrum Silver Tablet), 1 TAB PO DAILY, (Rep orted) Omeprazole (Omeprazole), 40 MG PO DAILY, (Reported) Timolol Maleate (Timolol Maleate), 1 DROP OU DAILY, (Reported) Warfarin Sodium (Warfarin Sodium), 2 MG PO QPM, (Reported) Zolpidem Tartrate (Ambien), 5 MG PO QHS, (Reported) Scheduled PRN Docusate Sodium (Colace), 100 MG PO DAILY PRN for CONSTIPATION, (Reported) Current BP 104/68 Med Change: No Intervention Resistance Training: Yes Education: Self pulse, Ex safety, S/S to report, Low NA diet, BP medication, RPE Scale, Equipment orientation, warm up/cool down, Understand BP, Physical Active Target Goals Individual exercise Rx (1) BP 140/90 or 130/80 if DM or CKD (1) Aerobic active 30+min 5 days per week (1) Nutrition Date: Jan 04, 2019 Assessment: Re-Assessment I Lipid- med/supplement LIPITOR 20 MG DAILY Med Change: No Diabetes Diabetes: Yes Diabetes medication LEVEMIR INSULIN AND HUMALOG INSULIN Weight Management Weight (lbs): 229.8 Special Diet: low salt, low-fat Vitamin/Supplements: Vitamin C, Vitamin D Alcohol: none Current Weight (pounds): 229.8 Weight Goal 160 Intervention Security Nurse Consult: Yes (WILL SEE SOLAR SALES ADVISOR WHILE IN PROGRAM) Nurse/patient discussion: Yes Dietary Goals TO MAKE HEART HEALTHY CHOICES AND SMALLER PORTIONS Diet Class: Yes Referral to Diabetes education: No Referral to lipid clinic: No Referral to weight mangement p: No Education S&S hypo/hyper glycemia, Relate Diabetes in CAD, Eating Healthy Target goal LDL-C<100 if triglycerides are >200 Non-HDL-C should be <130 (1) LDL-C<70 for high risk patients (4) HbA1c<7% (1) BMI<25 Waist cir<40in M/<35in F (1) Education Date: Jan 04, 2019 Assessment: Re-Assessment I Learning Barriers: ready Family Support: Yes Tobacco use: No Quit: >6 months (QUIT SMOKING 30 YEARS AGO, 1 PPD) Tobacco Use Smokeless tobacco: No Intervention Referral to smoking cessation: No Individual education and couns: No Tobacco Adjunct: No Education class schedule given: No Attended education classes: No Education: tobacco triggers, CAD, Risk factors, med compliance, cardiac A&P, Angina S/S, Sexuality Target Goals Complete cessation of tobacco use (1). Psychosocial Date: Jan 04, 2019 Assessment: Re-Assessment I Intervention Physician Consult: No Physician Referral: No Med Change: No Stress Management Class: No Uses Stress Management Skills: Yes Education Education: Coping Techniques, S/S depression, Relaxation Techniques Target Goal Assess presence or absence of depression using a valid screening tool (1). Maximize coping skills (2). Positive support system (2). Patient/Program Goal Preventative Medication: Yes Beta blockade, Yes Statin/OTR lipid Lowering Fall Risk Assess: Yes Assisstive Device: wheel chair Provider Assessment Session Number: 7 Provider Assessment: Proceed with rehab (ATTENDING WELL, DR. CHERRY ADJUSTING B/P MEDS DUE TO SBP 70-80 INTERMITTENTLY ) Domingo Barnes RN Jan 04, 2019 14:45
--- NOTE | 2019-01-27 13:47 | CARECAPL ---
Assessment Account #s: Re-Assessment II General Diagnoses: CABG, MVR, AVR Date of event: November 09, 2018 Physician: Nael Khan MD Allergies: Coded Allergies: naproxen (Verified Allergy, Mild, Rash, 11/17/18) Date Entered Program: Dec 11, 2018 Risk strat for cardiac event: High Exercise Date: Jan 27, 2019 Assessment: Re-Assessment II Exercise Prescription Modalities initiated: Cardio-Strider (rpe 3 mts 2.4 R2), Nustep (2.5 Mts 1.24 L4), Arm Aerometer (rpe 2.5 mts 2.0 1.5), Recumbent Bike Frequency: 2 Duration (Minutes) 30-60 minutes total exercise a day. 8-15 work intervals in minutes. rest intervals in minutes. Functional Capacity Goal Sustained Metabolic Equivalent of a task (MET) goal of for minutes. Progression (METS) Increase by: METS every: sessions Weight (pounds): 3 Reps: 6-8 Medications Scheduled Ascorbic Acid (Ascorbic Acid), 1,000 MG PO DAILY, (Reported) Aspirin (Aspirin EC), 81 MG PO DAILY, (Reported) Atorvastatin Calcium (Lipitor), 20 MG PO DAILY, (Reported) Cholecalciferol (Vitamin D3) (Vitamin D3), 1,000 UNIT PO DAILY, (Reported) Insulin Glargine,Hum.rec.anlog (Basaglar Kwikpen U-100), 20 UNIT SC BID, (Reported) Insulin Human Lispro (Humalog), 0 UNITS SC QHS Iron,Carbonyl (Iron Chews), 65 MG PO DAILY, (Reported) Latanoprost/Pf (Latanoprost 0.005% Eye Drop), 1 DROP OU QHS, (Reported) Metoclopramide HCl (Metoclopramide HCl), 5 MG PO DAILY, (Reported) Metoprolol Tartrate (Metoprolol Tartrate), 12.5 MG PO BID, (Reported) Multivit-Min/FA/Lycopen/Lutein (Centrum Silver Tablet), 1 TAB PO DAILY, (Reported) Omeprazole (Omeprazole), 40 MG PO DAILY, (Reported) Timolol Maleate (Timolol Maleate), 1 DROP OU DAILY, (Reported) Warfarin Sodium (Warfarin Sodium), 2 MG PO QPM, (Reported) Zolpidem Tartrate (Ambien), 5 MG PO QHS, (Reported) Scheduled PRN Docusate Sodium (Colace), 100 MG PO DAILY PRN for CONSTIPATION, (Reported) Current BP 102/64 Med Change: Yes (multiple changes d/t hypotension) Education Goals Met: No (progressing toward goals) Target Goals Individual exercise Rx (1) BP 140/90 or 130/80 if DM or CKD (1) Aerobic active 30+min 5 days per week (1) Nutrition Date: Jan 27, 2019 Assessment: Re-Assessment II Med Change: No Diabetes medication insulin Monitor Blood Sugar at home: Yes Blood sugar in range: No (poor control at home. Plan to see paper spooler as outpt) Current Weight (pounds): 227.8 Weight Goal 200 Intervention Aws Developer Consult: Yes Nurse/patient discussion: Yes Referral to Diabetes education: Yes Education S&S hypo/hyper glycemia, Relate Diabetes in CAD Education Goals Met: No (progressing towards goal) Target goal LDL-C<100 if triglycerides are >200 Non-HDL-C should be <130 (1) LDL-C<70 for high risk patients (4) HbA1c<7% (1) BMI<25 Waist cir<40in M/<35in F (1) Education Date: Jan 27, 2019 Assessment: Re-Assessment II Intervention Education class schedule given: Yes Attended education classes: Yes Education: CAD, Risk factors, med compliance, cardiac A&P, Angina S/S, Sexuality Education Goals Met: Yes Target Goals Complete cessation of tobacco use (1). Psychosocial Date: Jan 27, 2019 Assessment: Re-Assessment II Intervention Physician Consult: No Physician Referral: No Stress Management Class: Yes Uses Stress Management Skills: Yes Education Education: Coping Techniques, S/S depression, Relaxation Techniques Education Goals Met: Yes Target Goal Assess presence or absence of depression using a valid screening tool (1). Maximize coping skills (2). Positive support system (2). Provider Assessment Session Number: 12 Provider Assessment: No changes Victoria Pierre RN Jan 27, 2019 13:47
== END ==
LOC: M CR 12-30 10:19
PROVIDERS: ATTEND Internal Medicine Cardiovascular Disease
DX: Z95.2 Presence of prosthetic heart valve (principal)

== ENCOUNTER 2019-02-25 13:07 | Outpatient (RCR) | payer MEDICARE ==
--- NOTE | 2019-02-18 16:50 | CARECAPL ---
Assessment Account #s: Re-Assessment II (ASSESSMENT III) General Diagnoses: CABG, MVR, AVR Date of event: November 09, 2018 Physician: Nael Khan MD Allergies: Coded Allergies: naproxen (Verified Allergy, Mild, Rash, 11/17/18) Date Entered Program: Dec 11, 2018 Risk strat for cardiac event: High Exercise Date: Feb 18, 2019 Assessment: Re-Assessment II (REASSESSMENT III) Exercise Prescription Plan TO EDUCATE AND BUILD ENDURANCE THROUGH MONITORED EXERCISE Modalities initiated: Cardio-Strider (METS=2.3/RPE=2.5), Nustep (METS=4.0/RPE=3), Arm Aerometer (METS=2.0/RPE=3), Dumbells (3#/RPE=2) Frequency: 3 Duration (Minutes) 30-60 minutes total exercise a day. 12-15 work intervals in minutes. 5 MIN PRN rest intervals in minutes. Functional Capacity Goal Sustained Metabolic Equivalent of a task (MET) goal of 2.75-3.5 for 15-20 minutes. Intensity: 3-Moderate Progression (METS) Increase by: 0.5 METS every: 5 sessions Angina with ex: No Target Heart Rate REST +35-40 Resistance Training: Yes Weight (pounds): 3 Reps: 8-12 Hypertension: Yes Hypertension controlled with: Medication (METOPROLOL 12.5 BID) Resting 120/72 Peak Exercise BP 168/80 Medications Scheduled Ascorbic Acid (Ascorbic Acid), 1,000 MG PO DAILY, (Reported) Aspirin (Aspirin EC), 81 MG PO DAILY, (Reported) Atorvastatin Calcium (Lipitor), 20 MG PO DAILY, (Reported) Cholecalciferol (Vitamin D3) (Vitamin D3), 1,000 UNIT PO DAILY, (Reported) Insulin Glargine,Hum.rec.anlog (Basaglar Kwikpen U-100), 20 UNIT SC BID, (Reported) Insulin Human Lispro (Humalog), 0 UNITS SC QHS Iron,Carbonyl (Iron Chews), 65 MG PO DAILY, (Reported) Latanoprost/Pf (Latanoprost 0.005% Eye Drop), 1 DROP OU QHS, (Reported) Metoclopramide HCl (Metoclopramide HCl), 5 MG PO DAILY, (Reported) Metoprolol Tartrate (Metoprolol Tartrate), 12.5 MG PO BID, (Reported) Multivit-Min/FA/Lycopen/Lutein (Centrum Silver Tablet), 1 TAB PO DAILY, (Reported) Omeprazole (Omeprazole), 40 MG PO DAILY, (Reported) Timolol Maleate (Timolol Maleate), 1 DROP OU DAILY, (Reported) Warfarin Sodium (Warfarin Sodium), 2 MG PO QPM, (Reported) Zolpidem Tartrate (Ambien), 5 MG PO QHS, (Reported) Scheduled PRN Docusate Sodium (Colace), 100 MG PO DAILY PRN for CONSTIPATION, (Reported) Current BP 96/62 Med Change: No Intervention Home exercise: Type (WALKING,JOIN LOCAL GYM), Frequency (3-5 DAYS PER WEEK), Duration (30-60 MINUTES) Resistance Training: Yes Education: Self pulse (DEMONSTRATES PROPER PROCEDURE TO OBTAIN OWN PULSE), Ex safety (DEMONSTRATES INDEPENDENTLY WARM UP AND COOL DOWN PRIOR TO AND FOLLOWING EXERCISE), S/S to report (PATIENT IS ABLE TO VERBALIZE S/S SUCH CHEST PAIN,N/V,SWEATING,AND ELEVATED B/P), Low NA diet (PATIENT HAS MET WITH INTRANET DEVELOPER AND VERBALIZES UNDERSTANDING OF LOW NA DIET), BP medication (DISCUSSED METOPROLOL WITH PATIENT, PATIENT VERBALIZES UNDERSTANDING), RPE Scale (PATIENT DEMONSTRATES INDEPENDENCE), Equipment orientation (PATIENT IS INDEPENDENT ON EQUIPMENT WITH MINIMAL CUEING), warm up/cool down (DEMONSTRATES INDEPENDENTLY), Understand BP (PATIENT UNDERSTANDS IMPORTANCE OF B/P <140/80), Physical Active (PATIENT VERBALIZES UNDERSTANDING OF IMPORTANCE OF CONTINUED EXERCISE FOLLOWING CARDIAC REHAB) Education Goals Met: No (PROGRESSING TOWARD GOALS) Target Goals Individual exercise Rx (1) BP 140/90 or 130/80 if DM or CKD (1) Aerobic active 30+min 5 days per week (1) Nutrition Date: Feb 18, 2019 Assessment: Re-Assessment II (REASSESSMENT III) Lipid- med/supplement ATORVASTATIN 20 MG DAILY Med Change: No Diabetes Diabetes: Yes Fasting Blood Sugar: 208 Diabetes medication INSULIN HUMAN LISPRO AND INSULIN QUIK PEN Monitor Blood Sugar at home: Yes Medication Change: No Blood sugar in range: No (POOR CONTROL AT HOME) Weight Management Weight (lbs): 227.8 Special Diet: low salt (DIABETIC) Vitamin/Supplements: Vitamin D Current Weight (pounds): 227 Weight Goal 200 Intervention Assault Boat Coxswain Consult: Yes (WILL SEE INTRANET DEVELOPER OUTPATIENT) Nurse/patient discussion: Yes Dietary Goals SMALLER PORTIONS,HEART HEALTHY CHOICES Diet Class: Yes (WILL SEE INTRANET DEVELOPER WHILE IN CARDIAC REHAB) Referral to Diabetes education: No Referral to lipid clinic: No Referral to weight mangement p: No Education S&S hypo/hyper glycemia, Relate Diabetes in CAD, Eating Healthy Education Goals Met: No (PROGRESSING TOWARD GOALS) Target goal LDL-C<100 if triglycerides are >200 Non-HDL-C should be <130 (1) LDL-C<70 for high risk patients (4) HbA1c<7% (1) BMI<25 Waist cir<40in M/<35in F (1) Education Date: Feb 18, 2019 Assessment: Re-Assessment II (REASSESSMENT III) Learning Barriers: ready Family Support: Yes Tobacco use: No Tobacco Use Smokeless tobacco: No Intervention Referral to smoking cessation: No Individual education and couns: No Tobacco Adjunct: No Education class schedule given: No Attended education classes: No Education: CAD, Risk factors, med compliance, cardiac A&P, Angina S/S, Sexuality Education Goals Met: No (PROGRESSING TOWARD GOALS) Target Goals Complete cessation of tobacco use (1). Psychosocial Date: Feb 18, 2019 Assessment: Re-Assessment II (REASSESSMENT III) Intervention Physician Consult: No Physician Referral: No Med Change: No Stress Management Class: No Uses Stress Management Skills: Yes Education Education: Coping Techniques, S/S depression, Relaxation Techniques Education Goals Met: No (PROGRESSING TOWARD GOALS) Target Goal Assess presence or absence of depression using a valid screening tool (1). Maximize coping skills (2). Positive support system (2). Patient/Program Goal Preventative Medication: Yes Aspirin, Yes Beta blockade, Yes Statin/OTR lipid Lowering Fall Risk Assess: Yes (FALL RISK) Assisstive Device: wheel chair Provider Assessment Session Number: 19 Provider Assessment: Proceed with rehab Domingo Barnes RN Feb 18, 2019 16:50
== END 2019-02-27 ==
LOC: M CR 13:07
PROVIDERS: ATTEND Internal Medicine Cardiovascular Disease
DX: Z95.2 Presence of prosthetic heart valve (principal)

== ENCOUNTER 2019-03-12 14:02 | Outpatient (RCR) | payer MEDICARE ==
--- NOTE | 2019-03-12 14:52 | CARECAPL ---
Assessment Account #s: Discharge General Diagnoses: CABG Date of event: November 09, 2018 Physician: Nael Khan MD Allergies: Coded Allergies: naproxen (Verified Allergy, Mild, Rash, 11/17/18) Date Entered Program: Dec 11, 2018 Risk strat for cardiac event: Moderate Exercise Date: Mar 12, 2019 Assessment: Followup/Discharge Exercise Prescription Modalities initiated: Cardio-Strider (R315 minutes mts 2.4 rpe3), Nustep (L6 15 minutes mts 4..0 rep 3.0), Arm Aerometer (4.0 10minutes mts 1.9 rpe 3), Dumbells Frequency: 3 Duration (Minutes) 30 - 60 minutes total exercise a day. 15 - 20 work intervals in minutes. PRN rest intervals in minutes. Functional Capacity Goal Sustained Metabolic Equivalent of a task (MET) goal of for minutes. Intensity: 3-Moderate Progression (METS) Increase by: METS every: sessions Resistance Training: Yes Weight (pounds): 6 Reps: 6-8 Hypertension: No Resting 130/78 Peak Exercise BP 140/70 Meds see below Medications Scheduled Ascorbic Acid (Ascorbic Acid), 1,000 MG PO DAILY, (Reported) Aspirin (Aspirin EC), 81 MG PO DAILY, (Reported) Atorvastatin Calcium (Lipitor), 20 MG PO DAILY, (Reported) Cholecalciferol (Vitamin D3) (Vitamin D3), 1,000 UNIT PO DAILY, (Reported) Insulin Glargine,Hum.rec.anlog (Basaglar Kwikpen U-100), 20 UNIT SC BID, (Reported) Insulin Human Lispro (Humalog), 0 UNITS SC QHS Iron,Carbonyl (Iron Chews), 65 MG PO DAILY, (Reported) Latanoprost/Pf (Latanoprost 0.005% Eye Drop), 1 DROP OU QHS, (Reported) Metoclopramide HCl (Metoclopramide HCl), 5 MG PO DAILY, (Reported) Metoprolol Tartrate (Metoprolol Tartrate), 12.5 MG PO BID, (Reported) Multivit-Min/FA/Lycopen/Lutein (Centrum Silver Tablet), 1 TAB PO DAILY, (Reported) Omeprazole (Omeprazole), 40 MG PO DAILY, (Reported) Timolol Maleate (Timolol Maleate), 1 DROP OU DAILY, (Reported) Warfarin Sodium (Warfarin Sodium), 2 MG PO QPM, (Reported) Zolpidem Tartrate (Ambien), 5 MG PO QHS, (Reported) Scheduled PRN Docusate Sodium (Colace), 100 MG PO DAILY PRN for CONSTIPATION, (Reported) Intervention Home exercise: Duration (see prior ITP) Education Goals Met: No (progressed toward goals.) Target Goals Individual exercise Rx (1) BP 140/90 or 130/80 if DM or CKD (1) Aerobic active 30+min 5 days per week (1) Nutrition Date: Mar 12, 2019 Assessment: Followup/Discharge Stages of change: Contemplate Med Change: No Alcohol: none Score: 50 Current Weight (pounds): 224 Intervention Metrology Engineer Consult: Yes Diet Class: Yes ( seen this program to discuss better choices and wt loss) Target goal LDL-C<100 if triglycerides are >200 Non-HDL-C should be <130 (1) LDL-C<70 for high risk patients (4) HbA1c<7% (1) BMI<25 Waist cir<40in M/<35in F (1) Education Date: Mar 12, 2019 Assessment: Followup/Discharge Knowledge Test Score: 8 Stages of change: action Family Support: Yes Tobacco use: No Intervention Attended education classes: Yes Education Goals Met: Yes (see prior ITP) Target Goals Complete cessation of tobacco use (1). Psychosocial Date: Mar 12, 2019 Psych Test (Initial/Discharge) Tool Used: CESD Score: 6 Stages of change: action Intervention Physician Consult: No Physician Referral: No Stress Management Class: Yes Uses Stress Management Skills: Yes Education Goals Met: Yes (see prior ITP) Target Goal Assess presence or absence of depression using a valid screening tool (1). Maximize coping skills (2). Positive support system (2). Fall Risk Assess: No (tug 9 sec.) Provider Assessment Session Number: 26 (worked hard and receptive to all education) Provider Assessment: No changes Victoria Pierre RN Mar 12, 2019 14:52
== END 2019-03-29 ==
LOC: M CR 14:02
PROVIDERS: ATTEND Internal Medicine Cardiovascular Disease
DX: Z95.2 Presence of prosthetic heart valve (principal)

== ENCOUNTER → 2019-10-26 | Outpatient (REF) | payer MEDICARE ==
[~2019-10-26] MED LIST changes: +OMEP1CAP73 PO; -OMEP20CA4 PO
[2019-10-26 18:22] LABS: ALBUMIN 3.5 GM/DL (3.2-5.2); BILIRUBIN,DIRECT 0.1 MG/DL (0.0-0.2); BILIRUBIN,TOTAL 0.3 MG/DL (0.2-1.0); CHOLESTEROL RISK RATIO 3.307 (<5); TOTAL PROTEIN 6.9 GM/DL (6.4-8.2)
== END ==
LOC: M LABDRWAD 17:50
PROVIDERS: ATTEND Internal Medicine Cardiovascular Disease
DX: E78.00 Pure hypercholesterolemia, unspecified (principal)

== ENCOUNTER → 2019-11-16 | Outpatient (REF) | payer MEDICARE | LOC: M LAB REF 16:10 | PROVIDERS: ATTEND Internal Medicine | DX: E11.42 Type 2 diabetes mellitus with diabetic polyneuropathy (principal); E11.21 Type 2 diabetes mellitus with diabetic nephropathy ==

== ENCOUNTER → 2020-01-11 | Outpatient (REF) | payer MEDICARE ==
[~2020-01-11] MED LIST changes: +CALC600T57 PO; +EZET10TA21 PO; +FISH1000 PO; +VITA500C24 PO
[2020-01-11 17:56] LABS: BASO # 0.1 10^3/uL (0.0-0.2); EOS # 0.4 10^3/uL (0.0-0.5); EOS % 2.8 % (0.0-3.0); HEMATOCRIT 40.7 % (36.0-47.0); HEMOGLOBIN 12.9 g/dl (12.0-15.5); LYMPH # 2.9 10^3/uL (1.5-5.0); LYMPH % 21.3 % (24.0-44.0); MEAN CORPUSCULAR HEMOGLOBIN 31.9 pg (27.0-33.0); MEAN CORPUSCULAR HGB CONC 31.7 g/dl (32.0-36.5); MEAN CORPUSCULAR VOLUME 100.5 fl (80.0-96.0); MONO # 1.2 10^3/uL (0.0-0.8); MONO % 8.3 % (0.0-5.0); NEUTROPHILS # 9.1 10^3/uL (1.5-8.5); NEUTROPHILS % 65.9 % (36.0-66.0); PLATELET COUNT, AUTOMATED 225 10^3/uL (150-450); RED BLOOD COUNT 4.05 10^6/uL (4.00-5.40); WHITE BLOOD COUNT 13.8 10^3/uL (4.0-10.0)
== END ==
LOC: M LABDRWAD 16:30
PROVIDERS: ATTEND Internal Medicine Medical Oncology
DX: D72.820 Lymphocytosis (symptomatic) (principal)

== ENCOUNTER → 2020-04-05 | Outpatient (REF) | payer MEDICARE ==
[2020-04-05 18:06] LABS: ALBUMIN 3.4 GM/DL (3.2-5.2); BILIRUBIN,TOTAL 0.4 MG/DL (0.2-1.0); CALCIUM LEVEL 8.7 MG/DL (8.8-10.2); CREATININE FOR GFR 1.83 MG/DL (0.55-1.30); POTASSIUM SERUM 4.6 MEQ/L (3.5-5.1); TOTAL PROTEIN 6.9 GM/DL (6.4-8.2)
== END ==
LOC: M LABDRWAD 16:12
PROVIDERS: ATTEND Internal Medicine Hematology & Oncology
DX: D72.829 Elevated white blood cell count, unspecified (principal); D50.9 Iron deficiency anemia, unspecified

== ENCOUNTER 2020-06-20 19:00 | Inpatient (IN) | payer MEDICARE ==
[~2020-06-20] VITALS: Ht 157.5 cm; Wt 97.3 kg
[2020-06-20 20:19] LABS: HEMATOCRIT 37.8 % (36.0-47.0); HEMOGLOBIN 11.3 g/dl (12.0-15.5); MEAN CORPUSCULAR HEMOGLOBIN 27.4 pg (27.0-33.0); MEAN CORPUSCULAR HGB CONC 29.9 g/dl (32.0-36.5); MEAN CORPUSCULAR VOLUME 91.7 fl (80.0-96.0); PLATELET COUNT, AUTOMATED 279 10^3/uL (150-450); RED BLOOD COUNT 4.12 10^6/uL (4.00-5.40); WHITE BLOOD COUNT 15.6 10^3/uL (4.0-10.0)
[2020-06-20 20:44] LABS: CALCIUM LEVEL 8.9 MG/DL (8.8-10.2); CREATININE FOR GFR 3.11 MG/DL (0.55-1.30); GLOMERULAR FILTRATION RATE 15.7 (>39); POTASSIUM SERUM 6.3 MEQ/L (3.5-5.1)
[2020-06-20 21:00] LABS: RSV AMPLIFICATION NEGATIVE (NEGATIVE)
[2020-06-20] MEDS ORDERED: HumaLOG INSULIN (NovoLOG) PER UNIT SC SCH (21:00)
[2020-06-20] MEDS ORDERED: ACETAMINOPHEN 325 MG TAB PO ONE (22:00)
--- NOTE | 2020-06-20 22:07 | REPVR ---
PROCEDURE INFORMATION: Exam: XR Left Hip with Pelvis when Performed Exam date and time: 06/20/2020 7:18 PM Age: 70 years old Clinical indication: Injury or trauma; Fall; Sprain or strain; Left; Hip TECHNIQUE: Imaging protocol: XR Left hip with pelvis when performed. Views: 2 or 3 views. COMPARISON: No relevant prior studies available. FINDINGS: Bones/joints: Status post ORIF left hip. Marked bilateral hip arthropathy with femoroacetabular osteophytosis. Acute fracture proximal left femur and sub trochanteric region. Heterotopic bone demonstrated adjacent to the proximal left femur. Degenerative spondylosis visualized lower lumbar spine. Soft tissues: Unremarkable. IMPRESSION: Acute fracture proximal left femur and sub trochanteric region. Electronically signed by: Jonathan Grijalva On 06/20/2020 22:07:31 PM
--- NOTE | 2020-06-20 22:09 | REPVR ---
PROCEDURE INFORMATION: Exam: XR Left Knee Exam date and time: 06/20/2020 7:18 PM Age: 70 years old Clinical indication: Injury or trauma; Fall; Sprain or strain; Patella or knee; Left TECHNIQUE: Imaging protocol: XR Left knee. Views: 4 or more views. COMPARISON: No relevant prior studies available. FINDINGS: Bones/joints: Tip of long intramedullary rickey in the distal left femur with transverse anchoring screws demonstrated. Osteoporosis. Soft tissues: Normal. IMPRESSION: No acute findings. Electronically signed by: Jonathan Grijalva On 06/20/2020 22:09:12 PM
--- NOTE | 2020-06-20 22:09 | REPVR ---
PROCEDURE INFORMATION: Exam: XR Chest, 1 View Exam date and time: 06/20/2020 9:07 PM Age: 70 years old Clinical indication: Device placement; Other: Admit TECHNIQUE: Imaging protocol: XR of the chest Views: 1 view. COMPARISON: CT Chest without contrast 11/17/2018 3:32 PM FINDINGS: Lungs: Unremarkable. No consolidation. Pleural space: Unremarkable. No pleural effusion. No pneumothorax. Heart/Mediastinum: Unremarkable. No cardiomegaly. Bones/joints: Status post sternotomy. Degenerative spondylosis thoracic spine. IMPRESSION: No acute findings. Electronically signed by: Jonathan Grijalva On 06/20/2020 22:09:47 PM
--- NOTE | 2020-06-20 22:24 | HPEPDOC ---
[facility] Medical History & Physical Date of Admission Jun 20, 2020 Date of Service: Jun 20, 2020 Primary Care Physician: Jr Mayes Collins Attending Physician: THOMPSON LOAIZA MD History and Physical CHIEF COMPLAINT: Left hip pain and weakness HISTORY OF PRESENT ILLNESS: Heather is a 69yo female w/ notable PMHx of CAD s/p CABG 2018, IDDMII, htn, left hip fragility fx 03/2020 s/p sx repair, chronic leukocytosis, CKD, hld, gastric bypass sx, who presented to the ED via EMS on 06/20/2020 after she fell on her rear end while attempting to transition from the toilet to her wheelchair while at home. The patient suffered a fall at [facility] in March 2020, resulting in a left hip fracture that was surgically repaired in [place], [place]. She was then admitted for rehab in [place] and was only discharged from rehab earlier in the day on 06/20, after nearly spending 2 months there post-op. At the time of her fall on 06/20, she had returned home and was being assisted by both her and her daughter. She reports continued limited mobility related to her repair, hip and continues to have dull, intermittent 56/10 left hip pain. Both she and her family expressed concern about her ability to remain safe while living at home, considering all the systems she needs for even simple maneuvering. In addition, she reports that approximate 45 days ago while still at the [place] rehabilitation facility, she was diagnosed with an urinary tract infection and started on linezolid. At the time of her discharge on 06/20 from rehab, she reportedly had about 10 days remaining on the script. Upon the time of diagnosis for the UTI, she reported having symptoms in the form of dysuria. Upon presentation to the ED, she was found to have hyperkalemia (sK 6.3), acute renal failure on CKD (BUN 49/Cr 3.11, baseline Cr about 1-1.2/calculated GFR 15%), pseudohyponatremia (sNa 130, corrected was 136), leukocytosis (WBC 15.6; has h/o chronic leukocytosis), anemia (Hgb 11.3), and hyperglycemia (sGlu 456). Imaging carried out in ED was unremarkable other than a repeat of an acute fracture of the left hip. After extensive discussion and review with the ED providers, the read of an acute left hip fracture looks changed from multiple x- ray comparison studies since her fracture in March 2020. Due to the fact that this has been a constant finding on imaging over the past 2 months, it was deemed to not be a new/acute fracture. Patient was subsequently admitted under the care of the hospitalist service primarily for monitoring and treatment of hyperkalemia secondary to acute kidney injury superimposed on chronic kidney disease. PAST MEDICAL HISTORY: CAD s/p CABG with 2 wall replacement at [facility] in [place], [place] in October 2018 IDDMII with neuropathy HTN Left hip fragility fracture 2/2 fall at [facility], s/p surgical repair and 2 month rehab in [place], [place] - March 2020 Chronic leukocytosis, follows as outpatient with hematology; no current intervention warranted and likely reactive per last hematology office visit note on 04/20/2020 HLD S/p gastric bypass surgery around CKD Carpal tunnel, right wrist PAST SURGICAL HISTORY: Cardiac bypass surgery with 2 wall replacement at [facility] in [place], October 2018 Gastric bypass surgery approximately 12 or 13 years ago (about ) Total hysterectomy w/ BSO 1982 Right shoulder surgery for calcium buildup, approximately 30 years ago SOCIAL HISTORY: , lives with in [place], [place].. She is retired and is a former childcare provider. She has 3 children - - 2 sons and 1 daughter. Former cigarette smoker, having quit 39 years ago after averaging one pack per day for about 20 years. Formally drink alcohol on a very infrequent and social basis, with her last drink coming in 2001. Denies any current or former illicit drug use. FAMILY HISTORY: Father: , emphysema Mother: DMII 4 total brothers, 3 of whom are . The living brother has has DMII. 2 sisters, both are . One sister had DMII and unspecified breathing issues; other sister was thought to have colon ca but was never officially diagnosed or worked-up. ALLERGIES: Please see below. REVIEW OF SYSTEMS: CONSTITUTIONAL: Denies recent unintentional change in weight, fevers, chills, or night sweats EYES: Reports chronic limited visual acuity in right eye. Denies eye pain bilaterally as well as visual acuity changes, double vision or blurry vision in the left eye. ENT: Denies rhinorrhea, ear pain, tinnitus, dysphagia, or odynophagia CARDIOVASCULAR: Denies chest pain, chest pressure, or palpitations RESPIRATORY: Denies cough, sputum production, wheezes, hemoptysis, or shortness of breath GASTROINTESTINAL: Reports recent decreased oral intake and decreased appetite. Denies abdominal pain, nausea, vomiting, diarrhea, constipation, or blood in stool GENITOURINARY: Reported dysuria about 5 days ago before being treated for an UTI - - denies any dysuria since starting ABx. Denies hematuria. MSK: Reports 56/10 left hip dull, intermittent pain. Overall, she will reports decreased mobility and difficulty transitioning from positions. NEUROLOGY: Reports using a walker and wheelchair at home, neuropathy of b/l LEs and BERNAL. Denies feeling LH, dizziness, LOC, syncope HEMATOLOGIC: Denies easy bruising or bleeding LYMPHATIC: Denies any new lumps or bumps anywhere HOME MEDICATIONS: Please see below. PHYSICAL EXAMINATION: VITAL SIGNS: Temperature 97.2, pulse, 78, respiratory rate 16, blood pressure 134/63, pulse oximetry 97 % on room air. GENERAL APPEARANCE: Elderly female lying flat in bed. She appears to be in moderate discomfort and is emotional at times during exam. Alert and oriented 3. HEENT: Normocephalic, atraumatic. Wearing eyeglasses. Somewhat diminished reaction of pupils to light. Noninjected, anicteric sclera. EOMI. Dry mucous membranes with upper dentures present. NECK: Supple, trachea midline. No lymphadenopathy. CHEST: Well healed diagonal surgical incision scar overlying right upper chest just anterior to right shoulder. CARDIOVASCULAR: Distant heart sounds. Regular rate, regular rhythm. Normal S1, S2. Difficult to accurately assess for murmurs or rubs. Due to distant heart sounds. LUNGS: Due to patient's discomfort and overall weakness, only able to auscultate anteriorly and laterally. Decreased tidal volume with no adventitious breath sounds appreciated. Symmetric chest expansion. Speaking full sentences and breat placido room air. ABDOMEN: Soft, obese with prominent pannus. Hypoactive bowel sounds. Nontender. No rigidity. Difficult to assess for hepatosplenomegaly due to habitus. Unable to assess for CVA tenderness due to the fact patient could not sit up. Various well healed surgical incision scars visible over abdomen. MUSCULOSKELETAL: Patient is able to move fingers and toes of all extremities without issue. Left lower extremity 4/5 muscle strength testing. Right lower extremity 5/5 muscle strength testing. EXTREMITIES: Anterior aspects of bilateral lower extremities. Tender. No calf tenderness. No pitting edema of either lower extremity. 2+ radial pulses bilaterally. NEUROLOGICAL: Awake, alert and oriented 3. No focal neurologic deficits appreciated. Non-dysarthric speech. PSYCHIATRIC: At times short exam. Patient became emotional. Affect appears appropriate. LABORATORY DATA: Please see below. IMAGING: Left complete knee Xray, 06/20/2020 FINDINGS: Bones/joints: Tip of long intramedullary rickey in the distal left femur with transverse anchoring screws demonstrated. Osteoporosis. Soft tissues: Normal. IMPRESSION: No acute findings. Left Hip/Pelvis Ap & Lateral Xray, 06/20/2020 FINDINGS: Bones/joints: Status post ORIF left hip. Marked bilateral hip arthropathy with femoroacetabular osteophytosis. Acute fracture proximal left femur and sub trochanteric region. Heterotopic bone demonstrated adjacent to the proximal left femur. Degenerative spondylosis visualized lower lumbar spine. Soft tissues: Unremarkable. IMPRESSION: Acute fracture proximal left femur and sub trochanteric region. Addendum: Per lengthy discussion with ED providers, this read as an acute fracture appears unchanged from the multiple previous hip/pelvis xrays pt has had since her fall and fracture in March 2020; so, by virtue of comparison studies, this is not a new/acute fracture for the patient. Chest Xray, one view, 06/20/2020 IMPRESSION: No acute findings. MICROBIOLOGY: Please see below. ASSESSMENT & PLAN: This is a 70yo female w/ notable h/o recent left hip fragility fracture a/p sx repair and rehab, CAD s/p CABG, IDDMII w/ neuropathy, htn, hld, ckd, who presented to ED via EMS on 06/20/2020 after falling onto rear end from a low height at home just hours after being discharged from [place], [place] rehab s/p Mar 2020 left hip fx surgery. In the ED, she was found to have hypernatremia along with acute kidney injury on chronic kidney disease and was subsequently admitted for continued treatment and monitoring with added element of possible placement versus home health due to overall deconditioning and safety concerns at home. #Acute renal failure superimposed on chronic kidney disease stage IIIa -sCr 3.11 (baseline 1-1.2), BUN 49, calc GFR 15% (most recent readings were in upper 40s%) -Also found to have sK 6.3 -CK wnl -Urine electrolytes and urea ordered to assess for fractional excretion of sodium, as well as fractional excretion of urea, as patient is on a diuretic at home; both calculations will assist in identifying the cause of patient's acute renal failure -Monitor I's and O's, specifically urine output -Renal ultrasound ordered -Follow-up BMP ordered -Home furosemide held upon admission; *hold/avoid all nephrotoxic medications -Maintenance IVF ordered -Patient's previous calculate GFR was 49% indicating history of CK D stage IIIa, but calculated GFR in this admission, significantly decreased at 15% -Due to patient's decreased oral intake and appetite of late, most likely cause at this point is prerenal due to dehydration #Hyperkalemia -sK 6.3; this is most likely secondary to decreased renal excretion from acute renal failure and potentially diabetic nephropathy -No significant deep T waves or other characteristic abnormalities on EKG from time of presentation. -Telemetry monitoring ordered -Repeat BMP ordered to assess for -Urine potassium ordered as well as urine osmolality and serum osmolality; his eyes well calculate trans-tubular potassium gradient. 4. Renal versus nonrenal causes of the hyperkalemia -Patient has uncontrolled type 2 diabetes on insulin; home long-acting dose was cut in half and subsequently then continued, while short acting coverage will be via sliding scale #Pseudohyponatremia -sNa 130; corrected sNa 136 (sGlu 456) -sOsm was > 280 (it was 321), also correlating to pseudohyponatremia -IV fluids running with repeat morning BMP ordered #Uncontrolled IDDMII with neuropathy and CKD -home long-acting regimen (glargine) of 18u BID cut in half, with pt to now receive levemir 9u bid -holding home short acting regimen in favor of SSI with lispro ac & hs -FSBS ac & hs -Hgb A1c ordered; presenting sGlu was 456 -renal/CC/2 g Na diet ordered placed -Random urine microalbumin ordered to assess for possible nephropathy -home gabapentin contd upon admission #Recent symptomatic UTI -Patient diagnosed with UTI. 45 days ago and started on oral linezolid; pt has roughly 10 days left of the linezolid and, as there is no identified renal side effect/toxicity to linezolid, it was continued -Urinalysis on presentation: 3+ LE, negative nitrites, negative urine bacteria with 2+ protein and 1+ glucose -IVF running #Recent left hip fracture, s/p surgical repair and rehabilitation -As discussed extensively above in the imaging section, no new acute fracture is likely since the original left hip fracture in March 2020 -Status post surgical repair in March 2020 with 2 month stay in rehabilitation -Patient still seems to have considerable issues related to this injury -prn tylenol ordered -Patient reportedly has an outpatient appointment with Dr. Nguyen orthopedic surgery scheduled for 07/12/2020 #Deconditioning -Underwent surgical repair of left hip fracture in March 2020 and recently completed roughly 7 weeks of rehabilitation and [place], [place] -Patient still struggling with transitions as well as stability and strength. -Both patient and family have significant concerns related to her safety at home in the context of persistent weakness -PT and OT have been ordered to evaluate -Case management consult also placed to assess for need and possibilities of home health versus placement in the setting of weakness and safety/fall risk at home with limited overall mobility #Carpal tunnel syndrome, right wrist -Patient was scheduled to undergo carpal tunnel release surgery on 05/31/20 but this was canceled due to her rehabilitation stay in [place] #Osteoporosis in setting of recent left hip fragility fracture and as seen on presenting imaging -X-ray imaging of the knee showed signs consistent with osteoporosis. This finding, in addition to her recent fragility fracture, as well as her age and gender, and postmenopausal state, indicates that she likely requires outpatient workup for osteoporosis #CAD, s/p CABG 2018 -Home aspirin and atorvastatin contd -on telemetry #HLD -home zetia and atorvastatin contd #Unspecified mood disorder -Home escitalopram contd #HTN -normotensive upon presentation -home lopressor medication contd #GERD -home ppi contd #Normocytic hypochromic anemia -Hgb 11.3 -This appears to be a chronic issue going back on records -Patient is on oral iron as an outpatient and this will be held in setting of her acute renal failure #Chronic leukocytosis -WBC upon admission of 15.6 -upon review of records, pt has had leukocytosis going back to at least the year 1999 -Pt is following with hematology for this as an outpatient and was last seen two months ago (04/20/2020), at which time the tax technician felt no intervention was warranted as it was most likely a manifestation of a reactive process and all previous genetic mutation tests were negative #DVT prophylaxis: SC Lovenox at 30 SC rather than 40 d/t Cr clearance < 30 Code status: Full code Disposition: pending resolution of LISA and hypoK, along with possible placement vs home health for deconditioning s/p hip fracture Vital Signs Vital Signs Date Time Temp Pulse Resp B/P (MAP) Pulse Ox O2 Delivery O2 Flow Rate FiO2 06/20/20 22:11 134/63 (86) 06/20/20 22:00 78 16 97 Room Air 06/20/20 19:18 97.2 Laboratory Data Labs 24H Laboratory Tests 2 06/20/20 19:18: Nucleated Red Blood Cells % (auto) 0.0, Anion Gap 10, Glomerular Filtration Rate 15.7L, Calcium Level 8.9 06/20/20 19:56: Urine Color YELLOW, Urine Appearance TURBIDH, Urine pH 6.0, Urine Specific Hagerman 1.010, Urine Protein 2+H, Urine Glucose (UA) 1+H, Urine Ketones NEGATIVE, Urine Blood NEGATIVE, Urine Nitrite NEGATIVE, Urine Bilirubin NEGATI VE, Urine Urobilinogen 0.2, Urine Leukocyte Esterase 3+H, Urine WBC (Auto) TNTCH, Urine RBC (Auto) 30H, Urine Hyaline Casts (Auto) 0, Urine Bacteria (Auto) NEGATIVE, Urine Squamous Epithelial Cells 0, Urine Yeast-Like Cells (Auto) LARGEH, Urine Sperm (Auto) 06/20/20 20:09: Coronavirus (COVID-19)(PCR) NEGATIVE, Influenza Type A (RT-PCR) NEGATIVE, Influenza Type B (RT-PCR) NEGATIVE, Respiratory Syncytial Virus (PCR) NEGATIVE CBC/BMP Laboratory Tests 06/20/20 19:18 Microbiology Microbiology 06/20/20 Urine Culture, Received Pending Home Medications Scheduled Ascorbic Acid (Vitamin C) 1,000 Mg Tablet, 1,000 MG PO DAILY Aspirin (Aspirin EC) 81 Mg Tab, 81 MG PO DAILY Atorvastatin Calcium (Lipitor) 20 Mg Tab, 20 MG PO DAILY Calcium Carbonate/Vitamin D3 (Calcium 600-Vit D3 200 Tablet) 1 Each Tablet, 1 TAB PO BID Cholecalciferol (Vitamin D3) (Vitamin D3) 1,000 Unit Tablet, 1,000 UNITS PO DA MARILIA Escitalopram Oxalate (Escitalopram Oxalate) 5 Mg/5 Ml Solution, 5 MG PO DAILY Ezetimibe (Ezetimibe) 10 Mg Tablet, 10 MG PO DAILY Ferrous Sulfate (Ferrous Sulfate) 325 Mg Tablet, 325 MG PO DAILY Furosemide (Furosemide) 40 Mg Tablet, 40 MG PO DAILY Gabapentin (Gabapentin) 100 Mg Capsule, 100 MG PO TID Insulin Glargine,Hum.rec.anlog (Basaglar Kwikpen U-100) 100 Unit/1 Ml Insuln.pen, 18 UNIT SC BID Insulin Human Lispro (Humalog) 100 Unit/1 Ml Vial, 1 DOSE SC BID BEFORE BREAKFAST AND DINNER Latanoprost/Pf (Latanoprost 0.005% Eye Drop) 7.5 Ml Drops, 1 DROP OU QHS Linezolid (Linezolid) 600 Mg Tablet, 600 MG PO DAILY Metoclopramide HCl (Metoclopramide HCl) 5 Mg Tab, 5 MG PO DAILY Metoprolol Tartrate (Metoprolol Tartrate) 25 Mg Tablet, 37.5 MG PO BID Multivitamins (Thera M Plus Tablet) 1 Each Tablet, 1 TAB PO DAILY Grove-3/Dha/Epa/Fish Oil (Grove-3 Fish Oil 1,000 mg Sfgl) 1,000 Mg Capsule, 1 CAP PO DAILY Omeprazole (Omeprazole) 20 Mg Cap, 40 MG PO DAILY Timolol Maleate (Timolol Maleate) 0.5% 5ML Drops, 1 DROP OU DAILY Zolpidem Tartrate (Ambien) 5 Mg Tab, 5 MG PO QHS Scheduled PRN Clotrimazole/Betamethasone Dip (Clotrimazole-Betamethasone Crm) 15 Gm Cream..g., 1 DOSE TOP BID PRN for RASH APPLIES UNDER BREASTS AND STOMACH FOLDS Docusate Sodium (Colace) 100 Mg Capsule, 100 MG PO DAILY PRN for CONSTIPATION Allergies Coded Allergies: naproxen (Verified Allergy, Mild, Rash, 11/17/18) A-FIB/CHADSVASC A-FIB History Current/History of A-Fib/PAF?: No Current PO Anticoag Therapy: No GME ATTESTATION GME ATTESTATION My faculty preceptor for this patient encounter was physically present during the encounter and was fully available. All aspects of the patient interview, examination, medical decision making process, and medical care plan development were reviewed and approved by the faculty preceptor. The faculty preceptor is aware and concurs with the plan as stated in the body of this note and will attest to such by his/her cosignature. ATTENDING NOTE pls see the progress note from 06/21/20 for my addendum ALKA VAZ D.O. Jun 20, 2020 22:24 THOMPSON LOAIZA MD Jun 20, 2020 23:45
--- NOTE | 2020-06-20 23:06 | ECGEPIP ---
[facility] - ED Test Date: 2020-06-20 Pat Name: MARIA DEL ROSARIO RUEDA Department: Room: - Gender: Female Records Section Supervisor: SCOTT : 1950 Requested By: BEBE CALVIN Order Number: [id number] Reading MD: Charlie Santamaria Measurements Intervals [place] Rate: 78 P: 16 MS: 188 QRS: 17 QRSD: 101 T: 10 QT: 404 QTc: 460 Interpretive Statements SINUS RHYTHM WITH FIRST DEGREE AV BLOCK LOW QRS VOLTAGE IN EXTREMITY LEADS RHYTHM/RATE CHANGE COMPARED TO 11/17/18 Electronically Signed on 06-20-2020 23:06:29 EST by Charlie Santamaria
[2020-06-20] MEDS ORDERED: MOM 30ML SUSPENSION UDC PO PRN (23:45)
[2020-06-20] MEDS ORDERED: MAALOX 30 ML SUSP *UDC PO PRN (23:45)
[2020-06-20] MEDS ORDERED: GABA-1171 PO (23:56)
[2020-06-20] MEDS ORDERED: VITMTA PO (23:56)
[2020-06-20] MEDS ORDERED: METO25TA4 PO (23:56)
[2020-06-20] MEDS ORDERED: FERR325T18 PO (23:56)
[2020-06-20] MEDS ORDERED: D31000TA2 PO (23:56)
[2020-06-20] MEDS ORDERED: EZET10TA21 PO (23:56)
[2020-06-20] MEDS ORDERED: TIMO0.5S29 OU (23:56)
[2020-06-20] MEDS ORDERED: CALC-239 PO (23:56)
[2020-06-20] MEDS ORDERED: OMEGCAP4 PO (23:56)
[2020-06-20] MEDS ORDERED: LINE1TAB PO (23:56)
[2020-06-20] MEDS ORDERED: INSUHUMDS SC (23:56)
[2020-06-20] MEDS ORDERED: FURO40TA2 PO (23:56)
[2020-06-20] MEDS ORDERED: CLOT1CRE71 TOP (23:56)
[2020-06-20] MEDS ORDERED: VITA100024 PO (23:56)
[2020-06-21] MEDS ORDERED: GLUCOSE 4GM CHEW TABLET PO PRN
[2020-06-21] MEDS ORDERED: DEXTROSE 50% 50 ML SYRINGE IV PRN
[2020-06-21] MEDS ORDERED: GLUCAGON INJ 1MG VIAL SC PRN
[2020-06-21] MEDS ORDERED: PILL CUTTER 1 EACH XX PRN (01:15)
[2020-06-21] MEDS: LEVEMIR (INSULIN DETEMIR) 1 UNITS/0.01ML SC SCH ×3 (01:40→20:48)
[2020-06-21] MEDS: NS 1,000 ML IV SCH ×3 (01:41→15:57)
--- NOTE | 2020-06-21 02:21 | REPVR ---
PROCEDURE INFORMATION: Exam: US Retroperitoneal Limited, Kidneys Exam date and time: 06/21/2020 1:45 AM Age: 70 years old Clinical indication: Abnormal findings; Abnormal lab test; Abnormal kidney function lab tests; Additional info: Acute renal failure on ckd TECHNIQUE: Imaging protocol: Real-time ultrasound of the retroperitoneum with image documentation. Examination was focused on the kidneys. COMPARISON: No relevant prior studies available. FINDINGS: Right kidney: Kidney measures 11.3 cm. Normal echotexture. Possible extrarenal pelvis. No hydroureter. No calculi or masses. Left kidney: Kidney measures 11.2 cm. Normal echotexture. No calculi or masses. No hydronephrosis. IMPRESSION: No acute findings. Electronically signed by: Neil Vaughn On 06/21/2020 02:21:31 AM
[2020-06-21] MEDS ORDERED: HumuLIN R (REGULAR) INSULIN (NovoLIN R) **100U/ML** PER UNIT IV STA (03:06)
[2020-06-21] MEDS ORDERED: DEXTROSE 50% 50 ML SYRINGE IV STA (03:06)
[2020-06-21] MEDS ORDERED: CALCIUM GLUCONATE 1,000 MG in D5W MINI-BAG PLUS 100 ML IV ONE (03:15)
[2020-06-21] MEDS ORDERED: ALBUTEROL SULFATE 2.5 MG/0.5 ML INH NEB SOLN NEB ONE (03:15)
--- NOTE | 2020-06-21 04:34 | IPNPDOC ---
Text Note Date of Service The patient was seen on 06/21/20. NOTE I attempted to visit the patient at 1110 PM on 06/20/20 and again at 1124PM but she was being attended to by other hospital staff. 3rd visit was at 357 AM on 06/21/20 is a 70 yr old yr old former smoker with HTN, DM, gastricbypass, ALEX, CABG, heart valve replacement who presented with c/o weakness and inability to walk the same day after being discharged from [facility] rehab; she has also been eating and drinking less than usual because she feels sad. She will be admitted primarily for management of LISA and weakness possibly due to hyperkalemia. Rest per 's H&P VS,Shari, I+O VS, Shari, I+O Laboratory Tests 06/20/20 19:18 06/21/20 03:26 Vital Signs Date Time Temp Pulse Resp B/P (MAP) Pulse Ox O2 Delivery O2 Flow Rate FiO2 06/21/20 03:48 105/52 (69) 06/21/20 03:45 75 16 94 Room Air 06/20/20 19:18 97.2 THOMPSON LOAIZA MD Jun 21, 2020 04:34
[2020-06-21] MEDS ORDERED: ESCI5SOL3 PO (04:37)
[2020-06-21 04:40] LABS: HEMOGLOBIN A1c 8.4 %
[2020-06-21] MEDS: ACETAMINOPHEN TAB 650MG DOSE (2X325MG) PO PRN (04:45)
[2020-06-21] MEDS: HumaLOG INSULIN (NovoLOG) PER UNIT SC SCH ×3 (06:00→18:50)
[2020-06-21 06:53] LABS: HEMATOCRIT 34.2 % (36.0-47.0); HEMOGLOBIN 10.4 g/dl (12.0-15.5); MEAN CORPUSCULAR HEMOGLOBIN 27.8 pg (27.0-33.0); MEAN CORPUSCULAR HGB CONC 30.4 g/dl (32.0-36.5); MEAN CORPUSCULAR VOLUME 91.4 fl (80.0-96.0); PLATELET COUNT, AUTOMATED 260 10^3/uL (150-450); RED BLOOD COUNT 3.74 10^6/uL (4.00-5.40); WHITE BLOOD COUNT 11.4 10^3/uL (4.0-10.0)
[2020-06-21 07:17] LABS: CALCIUM LEVEL 8.5 MG/DL (8.8-10.2); CREATININE FOR GFR 2.57 MG/DL (0.55-1.30); GLOMERULAR FILTRATION RATE 19.6 (>39); PHOSPHORUS LEVEL 4.6 MG/DL (2.5-4.9); POTASSIUM SERUM 4.5 MEQ/L (3.5-5.1)
[2020-06-21] MEDS ORDERED: HumaLOG INSULIN (NovoLOG) PER UNIT SC SCH (07:30)
[2020-06-21] MEDS: CALCIUM/VITAMIN D 500 MG TAB PO SCH ×2 (08:48→20:48)
[2020-06-21] MEDS: OMEGA-3 1000MG CAPSULE PO SCH (08:48)
[2020-06-21] MEDS: ESCITALOPRAM OXALATE 5MG TABLET (LEXAPRO) PO SCH (08:48)
[2020-06-21] MEDS: ENOXAPARIN 30MG/0.3ML SYRINGE (J1650 PER 10MG) SC SCH (08:49)
[2020-06-21] MEDS: TIMOLOL MALEATE 0.5% OPHTH SOLN 5 ML OU SCH (08:49)
[2020-06-21] MEDS: OMEPRAZOLE 20 MG CAP PO SCH (08:49)
[2020-06-21] MEDS: METOPROLOL TART 25 MG TABLET PO SCH ×2 (08:50→20:49)
[2020-06-21] MEDS: GABAPENTIN 100 MG CAP PO SCH ×3 (08:50→20:48)
[2020-06-21] MEDS: EZETIMIBE 10 MG TAB (ZETIA) PO SCH (08:50)
[2020-06-21] MEDS: ASPIRIN 81 MG ENTERIC TAB PO SCH (08:50)
[2020-06-21] MEDS: VITAMIN D 1,000 INTERNATIONAL UNITS TABLET PO SCH (08:50)
[2020-06-21] MEDS: MULTIVITAMINS/MINERALS THERAP 1 TAB PO SCH (08:51)
[2020-06-21] MEDS: ATORVASTATIN 20 MG TAB PO SCH (08:51)
[2020-06-21] MEDS ORDERED: FERROUS SULFATE 325MG TAB PO SCH (09:00)
[2020-06-21] MEDS ORDERED: LINEZOLID 600MG TABLET (ZYVOX) PO SCH (09:00)
[2020-06-21] MEDS ORDERED: MORPHINE 2 MG/ML 1ML VIAL (J2270) As Ordered ONE (10:39)
[2020-06-21] MEDS ORDERED: MORPHINE 2 MG/ML 1ML VIAL (J2270) IV PRN (11:00)
--- NOTE | 2020-06-21 15:14 | IPNPDOC ---
Text Note Date of Service The patient was seen on 06/21/20. NOTE Subjective: Patient complains of left hip pain, 8 out of 10 Objective: GENERAL APPEARANCE: NAD HEENT: no scleral icterus, no JVD, EOMI CARDIOVASCULAR: S1S2 LUNGS: CTA ABDOMEN: soft & not tender w palpitation MUSCULOSKELETAL: Tenderness over left hip INTEGUMENT: no generalized pallor NEUROLOGICAL: cranial nerve function from 2-12 intact intact, follows commands, speech not dysarthric ASSESSMENT & PLAN: This is a 70yo female w/ notable h/o recent left hip fragility fracture a/p sx repair and rehab, CAD s/p CABG, IDDMII w/ neuropathy, htn, hld, ckd, who presented to ED via EMS on 06/20/2020 after falling onto rear end from a low height at home just hours after being discharged from [place], [place] rehab s/p Mar 2020 left hip fx surgery. In the ED, she was found to have hypernatremia along with acute kidney injury on chronic kidney disease and was subsequently admitted for continued treatment and monitoring with added element of possible placement versus home health due to overall deconditioning and safety concerns at home. Left hip pain Status post ORIF 2 months ago. Per lengthy discussion with ED providers, this read as an acute fracture appears unchanged from the multiple previous hip/pelvis xrays pt has had since her fall and fracture in March 2020; so, by virtue of comparison studies, this is not a new/acute fracture for the patient Pain management Appreciate/agree with ortho surgeon consult Acute renal failure superimposed on chronic kidney disease stage IIIa Secondary to dehydration, prerenal Improved Continue IV fluid Hyperkalemia Resolved Type 2 diabetes Diabetes diet Insulin sliding scale Detemir twice a day Deconditioning PT/OT Osteoporosis Vitamin D, calcium supplementation After stabilization of kidney function patient will benefit from bisphosphonate Chronic leukocytosis -WBC upon admission of 15.6 -upon review of records, pt has had leukocytosis going back to at least the year 1999 -Pt is following with hematology for this as an outpatient and was last seen two months ago (04/20/2020), at which time the compliance reviewer felt no intervention was warranted as it was most likely a manifestation of a reactive process and all pr evious genetic mutation tests were negative CAD, s/p CABG 2018 Home aspirin and atorvastatin contd on telemetry HLD home zetia and atorvastatin contd UTI Patient was prescribed linezolid 5-6 days ago for UTI. Urine analysis showed pyuria. However patient does not have dysuria. Discontinue linezolid, await urine Cx VS,Shari, I+O VS, Shari, I+O Laboratory Tests 06/20/20 19:18 06/21/20 03:26 06/21/20 06:32 Vital Signs Date Time Temp Pulse Resp B/P (MAP) Pulse Ox O2 Delivery O2 Flow Rate FiO2 06/21/20 13:01 74 97 06/21/20 13:00 96.7 20 125/56 (79) Room Air JOSE DANIEL SANTOS DO Jun 21, 2020 15:14
[2020-06-21 15:31] LABS: CREATININE, URINE 81.7 MG/DL
[2020-06-21 16:20] LABS: CREATININE,RANDOM URINE 77.7 MG/DL
[2020-06-21 17:45] VITALS: BP 132/83
[2020-06-21] MEDS: zolPIDEM TARTRATE 5 MG TAB PO SCH (20:48)
[2020-06-21 22:00] VITALS: BP 106/53
[2020-06-22] MEDS: HumaLOG INSULIN (NovoLOG) PER UNIT SC SCH ×5 (00:50→21:00)
[2020-06-22 06:00] VITALS: BP 123/54
[2020-06-22] MEDS: NS 1,000 ML IV SCH ×3 (06:09→19:22)
[2020-06-22 06:20] LABS: BASO # 0.1 10^3/uL (0.0-0.2); EOS # 0.6 10^3/uL (0.0-0.5); EOS % 5.5 % (0.0-3.0); HEMATOCRIT 32.8 % (36.0-47.0); HEMOGLOBIN 9.8 g/dl (12.0-15.5); LYMPH # 2.9 10^3/uL (1.5-5.0); LYMPH % 25.7 % (24.0-44.0); MEAN CORPUSCULAR HEMOGLOBIN 27.8 pg (27.0-33.0); MEAN CORPUSCULAR HGB CONC 29.9 g/dl (32.0-36.5); MEAN CORPUSCULAR VOLUME 92.9 fl (80.0-96.0); MONO % 8.6 % (0.0-5.0); NEUTROPHILS # 6.5 10^3/uL (1.5-8.5); NEUTROPHILS % 58.6 % (36.0-66.0); PLATELET COUNT, AUTOMATED 244 10^3/uL (150-450); RED BLOOD COUNT 3.53 10^6/uL (4.00-5.40); WHITE BLOOD COUNT 11.2 10^3/uL (4.0-10.0)
[2020-06-22 06:45] LABS: ALBUMIN 2.5 GM/DL (3.2-5.2); BILIRUBIN,TOTAL 0.3 MG/DL (0.2-1.0); CALCIUM LEVEL 7.8 MG/DL (8.8-10.2); CREATININE FOR GFR 1.54 MG/DL (0.55-1.30); GLOMERULAR FILTRATION RATE 35.4 (>39); POTASSIUM SERUM 4.4 MEQ/L (3.5-5.1)
[2020-06-22] MEDS: METOPROLOL TART 25 MG TABLET PO SCH ×2 (09:00→21:49)
[2020-06-22] MEDS: OMEGA-3 1000MG CAPSULE PO SCH (10:00)
[2020-06-22] MEDS: GABAPENTIN 100 MG CAP PO SCH ×3 (10:00→21:51)
[2020-06-22] MEDS: EZETIMIBE 10 MG TAB (ZETIA) PO SCH (10:00)
[2020-06-22] MEDS: ATORVASTATIN 20 MG TAB PO SCH (10:00)
[2020-06-22] MEDS: METOCLOPRAMIDE 5 MG TAB PO SCH (10:00)
[2020-06-22] MEDS: ESCITALOPRAM OXALATE 5MG TABLET (LEXAPRO) PO SCH (10:01)
[2020-06-22] MEDS: VITAMIN D 1,000 INTERNATIONAL UNITS TABLET PO SCH (10:01)
[2020-06-22] MEDS: ASPIRIN 81 MG ENTERIC TAB PO SCH (10:01)
[2020-06-22] MEDS: MULTIVITAMINS/MINERALS THERAP 1 TAB PO SCH (10:01)
[2020-06-22] MEDS: CALCIUM/VITAMIN D 500 MG TAB PO SCH ×2 (10:01→21:49)
[2020-06-22] MEDS: OMEPRAZOLE 20 MG CAP PO SCH (10:01)
[2020-06-22] MEDS: LEVEMIR (INSULIN DETEMIR) 1 UNITS/0.01ML SC SCH ×2 (10:02→21:55)
[2020-06-22] MEDS: ENOXAPARIN 30MG/0.3ML SYRINGE (J1650 PER 10MG) SC SCH (10:02)
[2020-06-22] MEDS: TIMOLOL MALEATE 0.5% OPHTH SOLN 5 ML OU SCH (10:02)
[2020-06-22] MEDS ORDERED: HumaLOG INSULIN (NovoLOG) PER UNIT SC SCH (12:00)
[2020-06-22 14:00] VITALS: BP 108/54
--- NOTE | 2020-06-22 15:08 | IPNPDOC ---
Text Note Date of Service The patient was seen on 06/22/20. NOTE Subjective: Patient stated that she feels better today, hip pain subsided Objective: GENERAL APPEARANCE: NAD HEENT: no scleral icterus, no JVD, EOMI CARDIOVASCULAR: S1S2 LUNGS: CTA ABDOMEN: soft & not tender w palpitation MUSCULOSKELETAL: Tenderness over left hip INTEGUMENT: no generalized pallor NEUROLOGICAL: cranial nerve function from 2-12 intact intact, follows commands, speech not dysarthric ASSESSMENT & PLAN: This is a 70yo female w/ notable h/o recent left hip fragility fracture a/p sx repair and rehab, CAD s/p CABG, IDDMII w/ neuropathy, htn, hld, ckd, who p resented to ED via EMS on 06/20/2020 after falling onto rear end from a low height at home just hours after being discharged from [place], [place] rehab s/p Mar 2020 left hip fx surgery. In the ED, she was found to have hypernatremia along with acute kidney injury on chronic kidney disease and was subsequently admitted for continued treatment and monitoring with added element of possible placement versus home health due to overall deconditioning and safety concerns at home. Left hip pain Status post ORIF 2 months ago. Per lengthy discussion with ED providers, this read as an acute fracture appears unchanged from the multiple previous hip/pelvis xrays pt has had since her fall and fracture in March 2020; so, by virtue of comparison studies, this is not a new/acute fracture for the patient Pain management PT/OT I talked yesterday to Dr. Childs who was her orthopedic surgeon, he recommended conservative treatment with physical therapy Acute renal failure superimposed on chronic kidney disease stage IIIa Secondary to dehydration, prerenal Improved Continue IV fluid Hyperkalemia Resolved Type 2 diabetes Diabetes diet Insulin sliding scale Detemir twice a day Deconditioning PT/OT Osteoporosis Vitamin D, calcium supplementation After stabilization of kidney function patient will benefit from bisphosphonate Chronic leukocytosis -WBC upon admission of 15.6 -upon review of records, pt has had leukocytosis going back to at least the year 1999 -Pt is following with hematology for this as an outpatient and was last seen two months ago (04/20/2020), at which time the car porter felt no intervention was warranted as it was most likely a manifestation of a reactive process and all previous genetic mutation tests were negative Follow-up with car porter in the outpatient settings CAD, s/p CABG 2019 Home aspirin and atorvastatin contd on telemetry HLD home zetia and atorvastatin contd UTI Patient was prescribed linezolid 5-6 days ago for UTI. Urine analysis showed pyuria. However patient does not have dysuria. Discontinue linezolid, urine Cx negative VS,Fishbone, I+O VS, Fishbone, I+O Laboratory Tests 06/22/20 05:58 Vital Signs Date Time Temp Pulse Resp B/P (MAP) Pulse Ox O2 Delivery O2 Flow Rate FiO2 06/22/20 14:00 97.4 74 22 108/54 (72) 96 Room Air I&O- Last 24 Hours up to 6 AM 06/22/20 06:00 Intake Total 3730 ml Output Total 1200 ml Balance 2530 ml JOSE DANIEL SANTOS DO Jun 22, 2020 15:08
[2020-06-22 21:07] VITALS: BP 110/58
[2020-06-22] MEDS: zolPIDEM TARTRATE 5 MG TAB PO SCH (21:49)
[2020-06-22 22:00] VITALS: BP 110/58
[2020-06-23] MEDS: NS 1,000 ML IV SCH (04:27)
[2020-06-23 06:00] VITALS: BP 100/48
[2020-06-23 06:02] LABS: BASO # 0.1 10^3/uL (0.0-0.2); BASO % 0.8 % (0.0-1.0); EOS # 0.3 10^3/uL (0.0-0.5); EOS % 2.9 % (0.0-3.0); HEMATOCRIT 29.7 % (36.0-47.0); HEMOGLOBIN 9.2 g/dl (12.0-15.5); LYMPH # 2.5 10^3/uL (1.5-5.0); MEAN CORPUSCULAR HEMOGLOBIN 28.7 pg (27.0-33.0); MEAN CORPUSCULAR VOLUME 92.5 fl (80.0-96.0); MONO % 9.9 % (0.0-5.0); NEUTROPHILS # 6.2 10^3/uL (1.5-8.5); NEUTROPHILS % 60.9 % (36.0-66.0); PLATELET COUNT, AUTOMATED 219 10^3/uL (150-450); RED BLOOD COUNT 3.21 10^6/uL (4.00-5.40); WHITE BLOOD COUNT 10.1 10^3/uL (4.0-10.0)
[2020-06-23 06:27] LABS: ALBUMIN 2.3 GM/DL (3.2-5.2); BILIRUBIN,TOTAL 0.3 MG/DL (0.2-1.0); CALCIUM LEVEL 7.7 MG/DL (8.8-10.2); CREATININE FOR GFR 1.2 MG/DL (0.55-1.30); GLOMERULAR FILTRATION RATE 47.1 (>39); MAGNESIUM LEVEL 1.8 MG/DL (1.8-2.4); POTASSIUM SERUM 4.3 MEQ/L (3.5-5.1); TOTAL PROTEIN 5.6 GM/DL (6.4-8.2)
[2020-06-23] MEDS: ENOXAPARIN 30MG/0.3ML SYRINGE (J1650 PER 10MG) SC SCH (09:05)
[2020-06-23] MEDS: LEVEMIR (INSULIN DETEMIR) 1 UNITS/0.01ML SC SCH ×2 (09:06→22:53)
[2020-06-23] MEDS: CALCIUM/VITAMIN D 500 MG TAB PO SCH ×2 (09:07→22:53)
[2020-06-23] MEDS: ATORVASTATIN 20 MG TAB PO SCH (09:07)
[2020-06-23] MEDS: HumaLOG INSULIN (NovoLOG) PER UNIT SC SCH ×4 (09:07→21:00)
[2020-06-23] MEDS: ASPIRIN 81 MG ENTERIC TAB PO SCH (09:08)
[2020-06-23] MEDS: OMEPRAZOLE 20 MG CAP PO SCH (09:08)
[2020-06-23] MEDS: OMEGA-3 1000MG CAPSULE PO SCH (09:08)
[2020-06-23] MEDS: GABAPENTIN 100 MG CAP PO SCH ×3 (09:08→22:50)
[2020-06-23] MEDS: VITAMIN D 1,000 INTERNATIONAL UNITS TABLET PO SCH (09:09)
[2020-06-23] MEDS: EZETIMIBE 10 MG TAB (ZETIA) PO SCH (09:09)
[2020-06-23] MEDS: MULTIVITAMINS/MINERALS THERAP 1 TAB PO SCH (09:09)
[2020-06-23] MEDS: METOCLOPRAMIDE 5 MG TAB PO SCH (09:09)
[2020-06-23] MEDS: METOPROLOL TART 25 MG TABLET PO SCH ×2 (09:11→21:00)
[2020-06-23] MEDS: TIMOLOL MALEATE 0.5% OPHTH SOLN 5 ML OU SCH (09:13)
[2020-06-23] MEDS: ESCITALOPRAM OXALATE 5MG TABLET (LEXAPRO) PO SCH (09:18)
--- NOTE | 2020-06-23 11:47 | IPNPDOC ---
Text Note Date of Service The patient was seen on 06/23/20. NOTE Subjective: No any acute events overnight Objective: GENERAL APPEARANCE: NAD HEENT: no scleral icterus, no JVD, EOMI CARDIOVASCULAR: S1S2 LUNGS: CTA ABDOMEN: soft & not tender w palpitation MUSCULOSKELETAL: Tenderness over left hip INTEGUMENT: no generalized pallor NEUROLOGICAL: cranial nerve function from 2-12 intact intact, follows commands, speech not dysarthric ASSESSMENT & PLAN: This is a 70yo female w/ notable h/o recent left hip fragility fracture a/p sx repair and rehab, CAD s/p CABG, IDDMII w/ neuropathy, htn, hld, ckd, who presented to ED via EMS on 06/20/2020 after falling onto rear end from a low height at home just hours after being discharged from [place], [place] rehab s/p Mar 2020 left hip fx surgery. In the ED, she was found to have hypernatremia along with acute kidney injury on chronic kidney disease and was subsequently admitted for continued treatment and monitoring with added element of possible placement versus home health due to overall deconditioning and safety concerns at home. Left hip pain Status post ORIF 2 months ago. Per lengthy discussion with ED providers, this read as an acute fracture appears unchanged from the multiple previous hip/pelvis xrays pt has had since her fall and fracture in March 2020; so, by virtue of comparison studies, this is not a new/acute fracture for the patient Pain management PT/OT I talked to Dr. Childs who was her orthopedic surgeon, he recommended conservative treatment with physical therapy Acute renal failure superimposed on chronic kidney disease stage IIIa Secondary to dehydration, prerenal Resolved Hyperkalemia Resolved Type 2 diabetes Diabetes diet Insulin sliding scale Detemir twice a day Deconditioning PT/OT Osteoporosis Vitamin D, calcium supplementation After stabilization of kidney function patient will benefit from bisphosphonate Chronic leukocytosis -WBC upon admission of 15.6 -upon review of records, pt has had leukocytosis going back to at least the year 1999 -Pt is following with hematology for this as an outpatient and was last seen two months ago (04/20/2020), at which time the radiology administrator felt no intervention was warranted as it was most likely a manifestation of a reactive process and all previous genetic mutation tests were negative Follow-up with radiology administrator in the outpatient settings CAD, s/p CABG 2018 Home aspirin and atorvastatin contd on telemetry HLD home zetia and atorvastatin contd UTI Patient was prescribed linezolid 5-6 days ago for UTI. Urine analysis showed pyuria. However patient does not have dysuria. Discontinue linezolid, urine Cx negative VS,Fishbone, I+O VS, Fishbone, I+O Laboratory Tests 06/23/20 05:51 Vital Signs Date Time Temp Pulse Resp B/P (MAP) Pulse Ox O2 Delivery O2 Flow Rate FiO2 06/23/20 09:11 90 125/67 06/23/20 06:00 98.3 20 97 Room Air I&O- Last 24 Hours up to 6 AM 06/23/20 06:00 Intake Total 2020 ml Output Total 100 ml Balance 1920 ml JOSE DANIEL SANTOS DO Jun 23, 2020 11:47
[2020-06-23 13:41] VITALS: BP 124/54
[2020-06-23] MEDS ORDERED: METOCLOPRAMIDE 5 MG TAB PO PRN (14:30)
[2020-06-23] MEDS: CIPROFLOXACIN 500MG TABLET PO SCH (15:37)
[2020-06-23] MEDS: FLUCONAZOLE 50MG TABLET PO SCH (15:37)
[2020-06-23 22:00] VITALS: BP 82/52
[2020-06-23] MEDS: zolPIDEM TARTRATE 5 MG TAB PO SCH (22:50)
[2020-06-23] MEDS: NYSTATIN 100,000 UNITS/GM TOPICAL PWD 15 GM TOP SCH (22:53)
[2020-06-23 23:45] VITALS: BP 92/50
[2020-06-24 00:15] VITALS: BP 86/44
[2020-06-24] MEDS ORDERED: SODIUM CHLORIDE 0.9% 1000ML IV ONE (02:00)
[2020-06-24 03:00] VITALS: BP 112/56
[2020-06-24 04:00] VITALS: BP 112/56
[2020-06-24] MEDS: CIPROFLOXACIN 500MG TABLET PO SCH (05:15)
[2020-06-24 06:00] VITALS: BP 99/59
[2020-06-24] MEDS ORDERED: NS 1,000 ML IV ONE (06:15)
[2020-06-24 06:27] VITALS: BP 106/59
[2020-06-24 06:28] LABS: BASO # 0.1 10^3/uL (0.0-0.2); BASO % 0.6 % (0.0-1.0); EOS # 0.1 10^3/uL (0.0-0.5); EOS % 0.7 % (0.0-3.0); HEMATOCRIT 29.9 % (36.0-47.0); HEMOGLOBIN 8.9 g/dl (12.0-15.5); LYMPH % 6.6 % (24.0-44.0); MEAN CORPUSCULAR HEMOGLOBIN 27.7 pg (27.0-33.0); MEAN CORPUSCULAR HGB CONC 29.8 g/dl (32.0-36.5); MEAN CORPUSCULAR VOLUME 93.1 fl (80.0-96.0); MONO # 1.3 10^3/uL (0.0-0.8); MONO % 8.5 % (0.0-5.0); NEUTROPHILS # 12.2 10^3/uL (1.5-8.5); NEUTROPHILS % 83.1 % (36.0-66.0); PLATELET COUNT, AUTOMATED 190 10^3/uL (150-450); RED BLOOD COUNT 3.21 10^6/uL (4.00-5.40); WHITE BLOOD COUNT 14.7 10^3/uL (4.0-10.0)
[2020-06-24] MEDS: ACETAMINOPHEN TAB 650MG DOSE (2X325MG) PO PRN ×2 (06:51→21:10)
[2020-06-24 06:59] LABS: ALBUMIN 2.4 GM/DL (3.2-5.2); BILIRUBIN,TOTAL 0.5 MG/DL (0.2-1.0); CALCIUM LEVEL 7.8 MG/DL (8.8-10.2); CREATININE FOR GFR 1.52 MG/DL (0.55-1.30); GLOMERULAR FILTRATION RATE 35.9 (>39); MAGNESIUM LEVEL 1.7 MG/DL (1.8-2.4); POTASSIUM SERUM 4.6 MEQ/L (3.5-5.1); TOTAL PROTEIN 5.8 GM/DL (6.4-8.2)
[2020-06-24] MEDS: LEVEMIR (INSULIN DETEMIR) 1 UNITS/0.01ML SC SCH ×2 (08:38→21:20)
[2020-06-24] MEDS: HumaLOG INSULIN (NovoLOG) PER UNIT SC SCH ×4 (08:39→21:00)
[2020-06-24] MEDS: OMEPRAZOLE 20 MG CAP PO SCH (08:40)
[2020-06-24] MEDS: ENOXAPARIN 30MG/0.3ML SYRINGE (J1650 PER 10MG) SC SCH (08:40)
[2020-06-24] MEDS: MULTIVITAMINS/MINERALS THERAP 1 TAB PO SCH (08:41)
[2020-06-24] MEDS: GABAPENTIN 100 MG CAP PO SCH ×3 (08:41→21:09)
[2020-06-24] MEDS: METOCLOPRAMIDE 5 MG TAB PO SCH (08:41)
[2020-06-24] MEDS: OMEGA-3 1000MG CAPSULE PO SCH (08:41)
[2020-06-24] MEDS: ATORVASTATIN 20 MG TAB PO SCH (08:41)
[2020-06-24] MEDS: EZETIMIBE 10 MG TAB (ZETIA) PO SCH (08:41)
[2020-06-24] MEDS: VITAMIN D 1,000 INTERNATIONAL UNITS TABLET PO SCH (08:41)
[2020-06-24] MEDS: ESCITALOPRAM OXALATE 5MG TABLET (LEXAPRO) PO SCH (08:41)
[2020-06-24] MEDS: ASPIRIN 81 MG ENTERIC TAB PO SCH (08:41)
[2020-06-24] MEDS: FLUCONAZOLE 50MG TABLET PO SCH (08:41)
[2020-06-24] MEDS: CALCIUM/VITAMIN D 500 MG TAB PO SCH ×2 (08:41→21:09)
[2020-06-24] MEDS: NYSTATIN 100,000 UNITS/GM TOPICAL PWD 15 GM TOP SCH ×2 (08:42→21:12)
[2020-06-24] MEDS: TIMOLOL MALEATE 0.5% OPHTH SOLN 5 ML OU SCH (08:42)
[2020-06-24] MEDS: METOPROLOL TART 25 MG TABLET PO SCH ×2 (08:42→21:11)
--- NOTE | 2020-06-24 09:58 | REP ---
INDICATION: hypotension r/o PNA COMPARISON: 06/20/2020 TECHNIQUE: Portable AP view of the chest FINDINGS: Examination is limited by underpenetration and portable technique. Evidence for prior sternotomy, CABG and aortic valve repair. Lung leroy are clear and without acute consolidation, effusion, or pneumothorax. Skeletal structures are stable. IMPRESSION: No acute cardiopulmonary process appreciated. <Electronically signed by Romain Cuadra > 06/24/20 0932
--- NOTE | 2020-06-24 12:49 | IPNPDOC ---
Text Note Date of Service The patient was seen on 06/24/20. NOTE Subjective: No any acute events overnight. Patient stated that she had frequency of urination yesterday evening with some burning Patient stated that dysuria resolved today Objective: GENERAL APPEARANCE: NAD HEENT: no scleral icterus, no JVD, EOMI CARDIOVASCULAR: S1S2 LUNGS: CTA ABDOMEN: soft & not tender w palpitation MUSCULOSKELETAL: Tenderness over left hip INTEGUMENT: no generalized pallor NEUROLOGICAL: cranial nerve function from 2-12 intact intact, follows commands, speech not dysarthric ASSESSMENT & PLAN: This is a 70yo female w/ notable h/o recent left hip fragility fracture a/p sx repair and rehab, CAD s/p CABG, IDDMII w/ neuropathy, htn, hld, ckd, who pre sented to ED via EMS on 06/20/2020 after falling onto rear end from a low height at home just hours after being discharged from [place], [place] rehab s/p Mar 2020 left hip fx surgery. In the ED, she was found to have hypernatremia along with acute kidney injury on chronic kidney disease and was subsequently admitted for continued treatment and monitoring with added element of possible placement versus home health due to overall deconditioning and safety concerns at home. Left hip pain Status post ORIF 2 months ago. Per lengthy discussion with ED providers, this read as an acute fracture appears unchanged from the multiple previous hip/pelvis xrays pt has had since her fall and fracture in March 2020; so, by virtue of comparison studies, this is not a new/acute fracture for the patient Pain management PT/OT I talked to Dr. Childs who was her orthopedic surgeon, he recommended conservative treatment with physical therapy Acute renal failure superimposed on chronic kidney disease stage IIIa Secondary to dehydration, prerenal Resolved Hyperkalemia Resolved Type 2 diabetes Diabetes diet Insulin sliding scale Detemir twice a day Deconditioning PT/OT Osteoporosis Vitamin D, calcium supplementation After stabilization of kidney function patient will benefit from bisphosphonate Chronic leukocytosis -WBC upon admission of 15.6 -upon review of records, pt has had leukocytosis going back to at least the year 1999 -Pt is following with hematology for this as an outpatient and was last seen two months ago (04/20/2020), at which time the mantel craftsman felt no intervention was warranted as it was most likely a manifestation of a reactive process and all previous genetic mutation tests were negative Follow-up with mantel craftsman in the outpatient settings CAD, s/p CABG 2019 Home aspirin and atorvastatin contd on telemetry HLD home zetia and atorvastatin contd UTI Patient was prescribed linezolid 5-6 days ago for UTI. Urine analysis showed pyuria. However patient does not have dysuria on admission Yesterday evening patient developed dysuria with burning feeling. Ciprofloxacin for 3 days. Diflucan added due to yeast in the urine We will repeat UA VS,Fishbone, I+O VS, Fishbone, I+O Laboratory Tests 06/24/20 05:54 Vital Signs Date Time Temp Pulse Resp B/P (MAP) Pulse Ox O2 Delivery O2 Flow Rate FiO2 06/24/20 08:42 99 110/56 06/24/20 07:50 100.9 06/24/20 06:27 18 94 Room Air I&O- Last 24 Hours up to 6 AM 06/24/20 06:00 Intake Total 1730 ml Output Total 0 ml Balance 1730 ml JOSE DANIEL SANTOS DO Jun 24, 2020 12:49
[2020-06-24] MEDS: zolPIDEM TARTRATE 5 MG TAB PO SCH (21:10)
[2020-06-25] MEDS: CIPROFLOXACIN 500MG TABLET PO SCH (05:11)
[2020-06-25 06:00] VITALS: BP 107/50
[2020-06-25 06:47] LABS: BASO # 0.1 10^3/uL (0.0-0.2); BASO % 0.8 % (0.0-1.0); EOS # 0.7 10^3/uL (0.0-0.5); EOS % 6.4 % (0.0-3.0); HEMATOCRIT 27.8 % (36.0-47.0); HEMOGLOBIN 8.3 g/dl (12.0-15.5); LYMPH # 2.2 10^3/uL (1.5-5.0); LYMPH % 20.6 % (24.0-44.0); MEAN CORPUSCULAR HEMOGLOBIN 28.1 pg (27.0-33.0); MEAN CORPUSCULAR HGB CONC 29.9 g/dl (32.0-36.5); MEAN CORPUSCULAR VOLUME 94.2 fl (80.0-96.0); MONO # 1.2 10^3/uL (0.0-0.8); NEUTROPHILS # 6.5 10^3/uL (1.5-8.5); NEUTROPHILS % 60.6 % (36.0-66.0); PLATELET COUNT, AUTOMATED 167 10^3/uL (150-450); RED BLOOD COUNT 2.95 10^6/uL (4.00-5.40); WHITE BLOOD COUNT 10.7 10^3/uL (4.0-10.0)
[2020-06-25 07:19] LABS: ALBUMIN 2.1 GM/DL (3.2-5.2); BILIRUBIN,TOTAL 0.3 MG/DL (0.2-1.0); CREATININE FOR GFR 1.46 MG/DL (0.55-1.30); GLOMERULAR FILTRATION RATE 37.6 (>39); MAGNESIUM LEVEL 1.9 MG/DL (1.8-2.4); POTASSIUM SERUM 4.1 MEQ/L (3.5-5.1); TOTAL PROTEIN 5.4 GM/DL (6.4-8.2)
[2020-06-25] MEDS: HumaLOG INSULIN (NovoLOG) PER UNIT SC SCH ×4 (08:36→20:39)
[2020-06-25] MEDS: ENOXAPARIN 30MG/0.3ML SYRINGE (J1650 PER 10MG) SC SCH (08:36)
[2020-06-25] MEDS: LEVEMIR (INSULIN DETEMIR) 1 UNITS/0.01ML SC SCH ×2 (08:36→20:32)
[2020-06-25] MEDS: EZETIMIBE 10 MG TAB (ZETIA) PO SCH (08:37)
[2020-06-25] MEDS: ASPIRIN 81 MG ENTERIC TAB PO SCH (08:37)
[2020-06-25] MEDS: CALCIUM/VITAMIN D 500 MG TAB PO SCH ×2 (08:37→20:32)
[2020-06-25] MEDS: NYSTATIN 100,000 UNITS/GM TOPICAL PWD 15 GM TOP SCH ×2 (08:37→20:34)
[2020-06-25] MEDS: OMEPRAZOLE 20 MG CAP PO SCH (08:37)
[2020-06-25] MEDS: MULTIVITAMINS/MINERALS THERAP 1 TAB PO SCH (08:37)
[2020-06-25] MEDS: OMEGA-3 1000MG CAPSULE PO SCH (08:37)
[2020-06-25] MEDS: GABAPENTIN 100 MG CAP PO SCH ×3 (08:37→20:32)
[2020-06-25] MEDS: METOPROLOL TART 25 MG TABLET PO SCH ×2 (08:38→20:33)
[2020-06-25] MEDS: ATORVASTATIN 20 MG TAB PO SCH (08:38)
[2020-06-25] MEDS: VITAMIN D 1,000 INTERNATIONAL UNITS TABLET PO SCH (08:38)
[2020-06-25] MEDS: METOCLOPRAMIDE 5 MG TAB PO SCH (08:48)
[2020-06-25] MEDS: ESCITALOPRAM OXALATE 5MG TABLET (LEXAPRO) PO SCH (08:48)
[2020-06-25] MEDS: FLUCONAZOLE 50MG TABLET PO SCH (08:48)
[2020-06-25] MEDS: TIMOLOL MALEATE 0.5% OPHTH SOLN 5 ML OU SCH (08:49)
--- NOTE | 2020-06-25 11:22 | IPNPDOC ---
Text Note Date of Service The patient was seen on 06/25/20. NOTE Subjective: No any acute events overnight. Dysuria resolved Objective: GENERAL APPEARANCE: NAD HEENT: no scleral icterus, no JVD, EOMI CARDIOVASCULAR: S1S2 LUNGS: CTA ABDOMEN: soft & not tender w palpitation MUSCULOSKELETAL: Tenderness over left hip INTEGUMENT: no generalized pallor NEUROLOGICAL: cranial nerve function from 2-12 intact intact, follows commands, speech not dysarthric ASSESSMENT & PLAN: This is a 70yo female w/ notable h/o recent left hip fragility fracture a/p sx repair and rehab, CAD s/p CABG, IDDMII w/ neuropathy, htn, hld, ckd, who presented to ED via EMS on 06/20/2020 after falling onto rear end from a low height at home just hours after being discharged from [place], [place] rehab s/p Mar 2020 left hip fx surgery. In the ED, she was found to have hypernatremia along with acute kidney injury on chronic kidney disease and was subsequently admitted for continued treatment and monitoring with added element of possible placement versus home health due to overall deconditioning and safety concerns at home. Left hip pain Status post ORIF 2 months ago. Per lengthy discussion with ED providers, this read as an acute fracture appears unchanged from the multiple previous hip/pelvis xrays pt has had since her fall and fracture in March 2020; so, by virtue of comparison studies, this is not a new/acute fracture for the patient Pain management PT/OT I talked to Dr. Childs who was her orthopedic surgeon, he recommended conservative treatment with physical therapy Acute renal failure superimposed on chronic kidney disease stage IIIa Secondary to dehydration, prerenal Resolved Hyperkalemia Resolved Type 2 diabetes Diabetes diet Insulin sliding scale Detemir twice a day Deconditioning PT/OT Osteoporosis Vitamin D, calcium supplementation After stabilization of kidney function patient will benefit from bisphosphonate Chronic leukocytosis -WBC upon admission of 15.6 -upon review of records, pt has had leukocytosis going back to at least the year 1999 -Pt is following with hematology for this as an outpatient and was last seen two months ago (04/20/2020), at which time the wood drill operator felt no intervention was warranted as it was most likely a manifestation of a reactive process and all previous genetic mutation tests were negative Follow-up with wood drill operator in the outpatient settings CAD, s/p CABG 2018 Home aspirin and atorvastatin contd on telemetry HLD home zetia and atorvastatin contd UTI Patient was prescribed linezolid 5-6 days ago for UTI. Urine analysis showed pyuria. However patient does not have dysuria on admission On 06/23/20 evening patient developed dysuria with burning feeling. Ciprofloxacin for 3 days. Diflucan added due to yeast in the urine We will repeat UA VS,Fishbone, I+O VS, Fishbone, I+O Laboratory Tests 06/25/20 06:11 Vital Signs Date Time Temp Pulse Resp B/P (MAP) Pulse Ox O2 Delivery O2 Flow Rate FiO2 06/25/20 08:38 90 134/63 06/25/20 06:00 98.5 16 95 Room Air I&O- Last 24 Hours up to 6 AM 06/25/20 06:00 Intake Total 600 ml Output Total 50 ml Balance 550 ml JOSE DANIEL SANTOS DO Jun 25, 2020 11:22
[2020-06-25 14:00] VITALS: BP 113/55
[2020-06-25] MEDS: AUGMENTIN 500 MG TAB PO SCH (17:54)
[2020-06-25] MEDS: zolPIDEM TARTRATE 5 MG TAB PO SCH (20:32)
[2020-06-25] MEDS: ACETAMINOPHEN TAB 650MG DOSE (2X325MG) PO PRN (20:33)
[2020-06-25 22:00] VITALS: BP 117/55
[2020-06-26] MEDS: AUGMENTIN 500 MG TAB PO SCH ×2 (05:26→17:16)
[2020-06-26 06:00] VITALS: BP 128/60
[2020-06-26 06:04] LABS: BASO # 0.1 10^3/uL (0.0-0.2); BASO % 0.9 % (0.0-1.0); EOS # 0.5 10^3/uL (0.0-0.5); EOS % 5.4 % (0.0-3.0); HEMATOCRIT 27.2 % (36.0-47.0); HEMOGLOBIN 8.3 g/dl (12.0-15.5); LYMPH # 2.3 10^3/uL (1.5-5.0); LYMPH % 23.4 % (24.0-44.0); MEAN CORPUSCULAR HEMOGLOBIN 28.3 pg (27.0-33.0); MEAN CORPUSCULAR HGB CONC 30.5 g/dl (32.0-36.5); MEAN CORPUSCULAR VOLUME 92.8 fl (80.0-96.0); MONO # 1.2 10^3/uL (0.0-0.8); MONO % 12.2 % (0.0-5.0); NEUTROPHILS # 5.5 10^3/uL (1.5-8.5); NEUTROPHILS % 57.3 % (36.0-66.0); PLATELET COUNT, AUTOMATED 190 10^3/uL (150-450); RED BLOOD COUNT 2.93 10^6/uL (4.00-5.40); WHITE BLOOD COUNT 9.6 10^3/uL (4.0-10.0)
[2020-06-26 06:25] LABS: BILIRUBIN,TOTAL 0.3 MG/DL (0.2-1.0); CALCIUM LEVEL 7.8 MG/DL (8.8-10.2); CREATININE FOR GFR 1.26 MG/DL (0.55-1.30); GLOMERULAR FILTRATION RATE 44.6 (>39); MAGNESIUM LEVEL 1.8 MG/DL (1.8-2.4); POTASSIUM SERUM 4.1 MEQ/L (3.5-5.1); TOTAL PROTEIN 5.4 GM/DL (6.4-8.2)
[2020-06-26] MEDS: HumaLOG INSULIN (NovoLOG) PER UNIT SC SCH ×4 (07:50→21:00)
[2020-06-26] MEDS: METOPROLOL TART 25 MG TABLET PO SCH ×2 (09:00→21:39)
[2020-06-26] MEDS: ENOXAPARIN 30MG/0.3ML SYRINGE (J1650 PER 10MG) SC SCH (09:42)
[2020-06-26] MEDS: OMEGA-3 1000MG CAPSULE PO SCH (09:42)
[2020-06-26] MEDS: CALCIUM/VITAMIN D 500 MG TAB PO SCH ×2 (09:42→21:36)
[2020-06-26] MEDS: ESCITALOPRAM OXALATE 5MG TABLET (LEXAPRO) PO SCH (09:42)
[2020-06-26] MEDS: LEVEMIR (INSULIN DETEMIR) 1 UNITS/0.01ML SC SCH ×2 (09:42→21:40)
[2020-06-26] MEDS: MULTIVITAMINS/MINERALS THERAP 1 TAB PO SCH (09:42)
[2020-06-26] MEDS: VITAMIN D 1,000 INTERNATIONAL UNITS TABLET PO SCH (09:42)
[2020-06-26] MEDS: GABAPENTIN 100 MG CAP PO SCH ×3 (09:42→21:40)
[2020-06-26] MEDS: ATORVASTATIN 20 MG TAB PO SCH (09:42)
[2020-06-26] MEDS: METOCLOPRAMIDE 5 MG TAB PO SCH (09:42)
[2020-06-26] MEDS: EZETIMIBE 10 MG TAB (ZETIA) PO SCH (09:43)
[2020-06-26] MEDS: TIMOLOL MALEATE 0.5% OPHTH SOLN 5 ML OU SCH (09:43)
[2020-06-26] MEDS: ASPIRIN 81 MG ENTERIC TAB PO SCH (09:43)
[2020-06-26] MEDS: OMEPRAZOLE 20 MG CAP PO SCH (09:43)
[2020-06-26] MEDS: NYSTATIN 100,000 UNITS/GM TOPICAL PWD 15 GM TOP SCH ×2 (09:43→21:41)
[2020-06-26] MEDS: ACETAMINOPHEN TAB 650MG DOSE (2X325MG) PO PRN (14:16)
[2020-06-26] MEDS: zolPIDEM TARTRATE 5 MG TAB PO SCH (21:36)
[2020-06-27 06:00] VITALS: BP 128/55
[2020-06-27] MEDS: AUGMENTIN 500 MG TAB PO SCH ×2 (06:16→17:05)
[2020-06-27] MEDS: HumaLOG INSULIN (NovoLOG) PER UNIT SC SCH ×4 (07:48→21:00)
[2020-06-27] MEDS: VITAMIN D 1,000 INTERNATIONAL UNITS TABLET PO SCH (09:43)
[2020-06-27] MEDS: ASPIRIN 81 MG ENTERIC TAB PO SCH (09:43)
[2020-06-27] MEDS: ATORVASTATIN 20 MG TAB PO SCH (09:44)
[2020-06-27] MEDS: ESCITALOPRAM OXALATE 5MG TABLET (LEXAPRO) PO SCH (09:44)
[2020-06-27] MEDS: MULTIVITAMINS/MINERALS THERAP 1 TAB PO SCH (09:44)
[2020-06-27] MEDS: GABAPENTIN 100 MG CAP PO SCH ×3 (09:44→21:31)
[2020-06-27] MEDS: METOCLOPRAMIDE 5 MG TAB PO SCH (09:44)
[2020-06-27] MEDS: OMEGA-3 1000MG CAPSULE PO SCH (09:44)
[2020-06-27] MEDS: OMEPRAZOLE 20 MG CAP PO SCH (09:44)
[2020-06-27] MEDS: EZETIMIBE 10 MG TAB (ZETIA) PO SCH (09:44)
[2020-06-27] MEDS: CALCIUM/VITAMIN D 500 MG TAB PO SCH ×2 (09:44→21:31)
[2020-06-27] MEDS: LEVEMIR (INSULIN DETEMIR) 1 UNITS/0.01ML SC SCH ×2 (09:45→21:32)
[2020-06-27] MEDS: ACETAMINOPHEN TAB 650MG DOSE (2X325MG) PO PRN ×2 (09:45→15:09)
[2020-06-27] MEDS: ENOXAPARIN 30MG/0.3ML SYRINGE (J1650 PER 10MG) SC SCH (09:46)
[2020-06-27] MEDS: NYSTATIN 100,000 UNITS/GM TOPICAL PWD 15 GM TOP SCH ×2 (09:46→21:34)
[2020-06-27] MEDS: TIMOLOL MALEATE 0.5% OPHTH SOLN 5 ML OU SCH (09:46)
[2020-06-27] MEDS: METOPROLOL TART 25 MG TABLET PO SCH ×2 (09:51→21:33)
--- NOTE | 2020-06-27 18:42 | IPNPDOC ---
Date Seen The patient was seen on 06/27/20. Progress Note SUBJECTIVE: No any acute events overnight. Awaiting placement in rehab. OBJECTIVE: PHYSICAL EXAM: VS: please see below GENERAL APPEARANCE: NAD, resting comfortably in bed HEENT: no scleral icterus, no JVD, EOMI CARDIOVASCULAR: S1S2 LUNGS: CTA ABDOMEN: soft & not tender w palpitation MUSCULOSKELETAL: Tenderness over left hip INTEGUMENT: no generalized pallor NEUROLOGICAL: cranial nerve function from 2-12 intact intact, follows commands, speech not dysarthric LABORATORY: Please see below ASSESSMENT This is a 70yo female w/ notable h/o recent left hip fragility fracture a/p sx repair and rehab, CAD s/p CABG, IDDMII w/ neuropathy, htn, hld, ckd, who presented to ED via EMS on 06/20/2020 after falling onto rear end from a low height at home just hours after being discharged from [place], [place] rehab s/p Mar 2020 left hip fx surgery. In the ED, she was found to have hypernatremia along with acute kidney injury on chronic kidney disease and was subsequently admitted for continued treatment and monitoring with added element of possible placement versus home health due to overall deconditioning and safety concerns at home. PLAN: Left hip pain, chronic. S/p ORIF 2 months ago. -Per last attending's note: "Per lengthy discussion with ED providers, this read as an acute fracture appears unchanged from the multiple previous hip/pelvis xrays pt has had since her fall and fracture in March 2020; so, by virtue of comparison studies, this is not a new/acute fracture for the patient" -C/w pain management -PT/OT -Dr. Childs who was her orthopedic surgeon, he recommended conservative treatment with physical therapy -awaiting placement for rehab currently Anemia possibly to chronic kidney disease?, normocytic -H/H has steadily declined since admission -No s/s of bleeding but will order occult blood -F/u iron studies, daily CBC Proteus UTI -Cx on file -WBC wnl -C/w augmentin until 06/29/20 CKD Stage III -Cr 1.26 -F/u labs regularly, avoid nephrotoxic meds Type 2 diabetes -BS not controlled -Diabetes diet -Insulin sliding scale -Increased levemir to 15 U SC BID Deconditioning -PT/OT Osteoporosis -Vitamin D, calcium supplementation- Chronic leukocytosis -Currently WBC wnl -WBC upon admission of 15.6 -upon review of records, pt has had leukocytosis going back to at least the year 1999 -Pt is following with hematology for this as an outpatient and was last seen two months ago (04/20/2020), at which time the agency recruiter felt no intervention was warranted as it was most likely a manifestation of a reactive process and all previous genetic mutation tests were negative -Follow-up with agency recruiter in the outpatient settings CAD, s/p CABG 2018 -Home aspirin and atorvastatin contd HLD -C/w home zetia and atorvastatin contd Resolved issues: Acute renal failure superimposed on chronic kidney disease stage IIIa 2/2 to dehydration, prerenal Hyperkalemia DISPOSITION: Plan is d/c to rehab when bed becomes available. VS, I&O, 24H, Fishbone Vital Signs/I&O Vital Signs Date Time Temp Pulse Resp B/P (MAP) Pulse Ox O2 Delivery O2 Flow Rate FiO2 06/27/20 09:51 82 122/55 06/27/20 06:00 98.4 16 97 Room Air I&O- Last 24 Hours up to 6 AM 06/27/20 06:00 Intake Total 840 ml Output Total 150 ml Balance 690 ml Laboratory Data 24H LABS Laboratory Tests 2 06/26/20 20:34: Bedside Glucose (Misc Panel) 221H 06/27/20 06:31: Bedside Glucose (Misc Panel) 149H 06/27/20 11:54: Bedside Glucose (Misc Panel) 210H 06/27/20 16:28: Bedside Glucose (Misc Panel) 196H Microbiology Microbiology 06/24/20 Blood Culture - Preliminary, Resulted No Growth after 72 hours. All specime... 06/23/20 Urine Culture - Final, Complete Proteus Mirabilis 06/20/20 Urine Culture - Final, Complete Current Medications Current Medications Medications (Trade) Dose Ordered Sig/Maximilian Route PRN Reason Start Time Stop Time Status Last Admin Dose Admin Acetaminophen (Tylenol Tab) 650 mg Q4H PRN PO PAIN OR FEVER 06/20/20 23:45 06/27/20 15:09 Al Hydrox/Mg Hydrox/Simethicone (Mylanta) 30 ml DAILY PRN PO DYSPEPSIA 06/20/20 23:45 06/23/20 12:23 Amoxicillin/ Clavulanate Potassium (Augmentin) 500 mg Q12H PO 06/25/20 18:00 06/27/20 17:05 Aspirin (Ecotrin) 81 mg DAILY PO 06/21/20 09:00 06/27/20 09:43 Atorvastatin Calcium (Lipitor) 20 mg DAILY PO 06/21/20 09:00 06/27/20 09:44 Calcium/Vitamin D (Oscal D) 500 mg BID PO 06/21/20 09:00 06/27/20 09:44 Ciprofloxacin (Cipro) 500 mg DAILY@06 PO 06/23/20 06:00 06/25/20 06:01 DC 06/25/20 05:11 Dextrose (Dextrose 50%) 25 ml ASDIRECTED PRN IV SEE LABEL COMMENTS 06/21/20 00:00 Dextrose (Dextrose 50%) 50 ml STAT STAT IV 06/21/20 03:06 06/21/20 04:29 DC Enoxaparin Sodium (Lovenox) 30 mg DAILY SC 06/21/20 09:00 06/27/20 09:46 Escitalopram Oxalate (Lexapro) 5 mg DAILY PO 06/21/20 09:00 06/27/20 09:44 EZETIMIBE (Zetia) 10 mg DAILY PO 06/21/20 09:00 06/27/20 09:44 Ferrous Sulfate (Ferrous Sulfate) 325 mg DAILY PO 06/21/20 09:00 06/21/20 06:36 DC Fish Oil (Coxsackie-3 (1000mg)) 1 cap DAILY PO 06/21/20 09:00 06/27/20 09:44 Fluconazole (Diflucan) 150 mg DAILY PO 06/23/20 09:00 06/25/20 09:01 DC 06/25/20 08:48 Gabapentin (Neurontin) 100 mg TID PO 06/21/20 09:00 06/27/20 15:08 Glucagon (Glucagon) 1 mg ASDIRECTED PRN SC SEE LABEL COMMENTS 06/21/20 00:00 Glucose (Glucose) 16 GM ASDIRECTED PRN PO SEE LABEL COMMENTS 06/21/20 00:00 Home Med (Med Rec Complete!) ASDIRECTED XX 06/21/20 00:00 06/21/20 00:07 DC Insulin Detemir (Levemir Insulin) 9 units BID SC 06/20/20 21:00 06/21/20 15:43 DC 06/21/20 08:51 Insulin Detemir (Levemir Insulin) 12 units BID SC 06/21/20 21:00 06/27/20 09:45 Insulin Human Lispro (HumaLOG INSULIN) SEE PROTOCOL TABLE AC [place] 06/21/20 07:30 06/21/20 03:10 DC Insulin Human Lispro (HumaLOG INSULIN) SEE PROTOCOL TABLE ACHS [place] 06/22/20 12:00 06/22/20 09:45 DC Insulin Human Lispro (HumaLOG INSULIN) SEE PROTOCOL TABLE Q6H [place] 06/21/20 06:00 06/22/20 09:44 DC 06/22/20 00:50 Insulin Human Lispro (HumaLOG INSULIN) SEE PROTOCOL TABLE QHS [place] 06/20/20 21:00 06/21/20 03:10 DC 06/21/20 01:40 Insulin Human Lispro (HumaLOG INSULIN) See Protocol Table AC [place] 06/22/20 12:00 06/27/20 17:06 Insulin Human Lispro (HumaLOG INSULIN) See Protocol Table QHS [place] 06/22/20 21:00 Insulin Human Regular (HumuLIN R INSULIN) 10 units STAT STAT IV 06/21/20 03:06 06/21/20 04:29 DC Linezolid (Zyvox) 600 mg DAILY PO 06/21/20 09:00 06/21/20 15:41 DC 06/21/20 08:48 Magnesium Hydroxide (Milk Of Magnesia) 30 ml DAILY PRN PO CONSTIPATION 06/20/20 23:45 Metoclopramide HCl (Reglan) 5 mg DAILY PO 06/22/20 09:00 06/27/20 09:44 Metoclopramide HCl (Reglan) 5 mg Q6HP PRN PO NAUSEA OR VOMITING 06/23/20 14:30 Metoprolol Tartrate (Lopressor) 37.5 mg BID PO 06/21/20 09:00 06/27/20 09:51 Morphine Sulfate (Morphine Sulfate Inj) 2 mg Q4H PRN IV MODERATE PAIN (PS 5-7) 06/21/20 11:00 06/21/20 10:52 Multivitamins (Theragram-M) 1 tab DAILY PO 06/21/20 09:00 06/27/20 09:44 Nystatin (Mycostatin Powder, Nystop) 1 dose BID TOP 06/23/20 21:00 06/27/20 09:46 Omeprazole (PriLOSEC) 40 mg DAILY PO 06/21/20 09:00 06/27/20 09:44 Sodium Chloride 1,000 ml @ 110 mls/hr Q9H6M IV 06/21/20 00:45 06/23/20 11:47 DC 06/23/20 04:27 Timolol Maleate (Timoptic 0.5% Ophth Sirena) 1 drop DAILY OU 06/21/20 09:00 06/27/20 09:46 Vitamin D (Vitamin D) 1,000 units DAILY PO 06/21/20 09:00 06/27/20 09:43 Zolpidem Tartrate (Ambien) 5 mg QHS PO 06/21/20 21:00 06/26/20 21:36 Allergies Coded Allergies: naproxen (Verified Allergy, Mild, Rash, 11/17/18) Lucy Woods MD Jun 27, 2020 18:42
[2020-06-27] MEDS: zolPIDEM TARTRATE 5 MG TAB PO SCH (21:44)
[2020-06-28] MEDS: AUGMENTIN 500 MG TAB PO SCH ×2 (05:32→18:16)
[2020-06-28 06:00] VITALS: BP 117/56
[2020-06-28 06:18] LABS: HEMATOCRIT 30.2 % (36.0-47.0); HEMOGLOBIN 9.2 g/dl (12.0-15.5); MEAN CORPUSCULAR HEMOGLOBIN 28.9 pg (27.0-33.0); MEAN CORPUSCULAR HGB CONC 30.5 g/dl (32.0-36.5); PLATELET COUNT, AUTOMATED 218 10^3/uL (150-450); RED BLOOD COUNT 3.18 10^6/uL (4.00-5.40); WHITE BLOOD COUNT 11.8 10^3/uL (4.0-10.0)
[2020-06-28 06:54] LABS: ALBUMIN 2.3 GM/DL (3.2-5.2); BILIRUBIN,TOTAL 0.3 MG/DL (0.2-1.0); CALCIUM LEVEL 8.5 MG/DL (8.8-10.2); CREATININE FOR GFR 1.1 MG/DL (0.55-1.30); GLOMERULAR FILTRATION RATE 52.1 (>39); PERCENT SATURATION 15.3 % (13.2-45.0); POTASSIUM SERUM 4.5 MEQ/L (3.5-5.1); TOTAL PROTEIN 5.8 GM/DL (6.4-8.2)
[2020-06-28] MEDS: MULTIVITAMINS/MINERALS THERAP 1 TAB PO SCH (07:57)
[2020-06-28] MEDS: ENOXAPARIN 30MG/0.3ML SYRINGE (J1650 PER 10MG) SC SCH (07:57)
[2020-06-28] MEDS: OMEPRAZOLE 20 MG CAP PO SCH (07:58)
[2020-06-28] MEDS: ASPIRIN 81 MG ENTERIC TAB PO SCH (07:58)
[2020-06-28] MEDS: VITAMIN D 1,000 INTERNATIONAL UNITS TABLET PO SCH (07:58)
[2020-06-28] MEDS: GABAPENTIN 100 MG CAP PO SCH ×3 (07:59→21:30)
[2020-06-28] MEDS: OMEGA-3 1000MG CAPSULE PO SCH (07:59)
[2020-06-28] MEDS: CALCIUM/VITAMIN D 500 MG TAB PO SCH ×2 (08:00→21:30)
[2020-06-28] MEDS: ATORVASTATIN 20 MG TAB PO SCH (08:00)
[2020-06-28] MEDS: ESCITALOPRAM OXALATE 5MG TABLET (LEXAPRO) PO SCH (08:00)
[2020-06-28] MEDS: EZETIMIBE 10 MG TAB (ZETIA) PO SCH (08:00)
[2020-06-28] MEDS: TIMOLOL MALEATE 0.5% OPHTH SOLN 5 ML OU SCH (08:01)
[2020-06-28] MEDS: METOCLOPRAMIDE 5 MG TAB PO SCH (08:02)
[2020-06-28] MEDS: METOPROLOL TART 25 MG TABLET PO SCH ×2 (08:04→21:31)
[2020-06-28] MEDS: HumaLOG INSULIN (NovoLOG) PER UNIT SC SCH ×4 (10:03→21:00)
[2020-06-28] MEDS: LEVEMIR (INSULIN DETEMIR) 1 UNITS/0.01ML SC SCH ×2 (10:04→21:30)
[2020-06-28] MEDS: NYSTATIN 100,000 UNITS/GM TOPICAL PWD 15 GM TOP SCH ×2 (10:04→21:30)
[2020-06-28] MEDS: zolPIDEM TARTRATE 5 MG TAB PO SCH (21:30)
[2020-06-29] MEDS: AUGMENTIN 500 MG TAB PO SCH (05:04)
[2020-06-29 06:00] VITALS: BP 111/65
[2020-06-29] MEDS: ENOXAPARIN 30MG/0.3ML SYRINGE (J1650 PER 10MG) SC SCH (08:00)
[2020-06-29] MEDS: OMEPRAZOLE 20 MG CAP PO SCH (08:00)
[2020-06-29] MEDS: GABAPENTIN 100 MG CAP PO SCH (08:00)
[2020-06-29] MEDS: CALCIUM/VITAMIN D 500 MG TAB PO SCH (08:01)
[2020-06-29] MEDS: MULTIVITAMINS/MINERALS THERAP 1 TAB PO SCH (08:01)
[2020-06-29] MEDS: ATORVASTATIN 20 MG TAB PO SCH (08:01)
[2020-06-29] MEDS: VITAMIN D 1,000 INTERNATIONAL UNITS TABLET PO SCH (08:01)
[2020-06-29] MEDS: EZETIMIBE 10 MG TAB (ZETIA) PO SCH (08:01)
[2020-06-29] MEDS: ASPIRIN 81 MG ENTERIC TAB PO SCH (08:01)
[2020-06-29] MEDS: LEVEMIR (INSULIN DETEMIR) 1 UNITS/0.01ML SC SCH (08:01)
[2020-06-29] MEDS: OMEGA-3 1000MG CAPSULE PO SCH (08:01)
[2020-06-29] MEDS: HumaLOG INSULIN (NovoLOG) PER UNIT SC SCH ×2 (08:02→12:36)
[2020-06-29] MEDS: TIMOLOL MALEATE 0.5% OPHTH SOLN 5 ML OU SCH (08:03)
[2020-06-29] MEDS: NYSTATIN 100,000 UNITS/GM TOPICAL PWD 15 GM TOP SCH (08:03)
[2020-06-29 08:07] VITALS: BP 109/51
[2020-06-29] MEDS: METOPROLOL TART 25 MG TABLET PO SCH (08:07)
[2020-06-29] MEDS: ESCITALOPRAM OXALATE 5MG TABLET (LEXAPRO) PO SCH (08:12)
[2020-06-29] MEDS: METOCLOPRAMIDE 5 MG TAB PO SCH (08:12)
[2020-06-29] MEDS ORDERED: BASA100I SC (11:09)
[2020-06-29] MEDS ORDERED: INSUHUMDS SC ×2 (11:09)
[2020-06-29] MEDS ORDERED: GLUC1INJ21 SC (11:09)
[2020-06-29] MEDS ORDERED: NYST10006 TOP (11:09)
[2020-06-29] MEDS ORDERED: METO5TAB2 PO ×2 (11:09)
[2020-06-29] MEDS ORDERED: ACET1TAB55 PO (11:09)
--- NOTE | 2020-06-29 17:01 | DS.PDOC ---
Discharge Summary General Date of Admission Jun 20, 2020 at 21:05 Date of Discharge 06/29/20 Attending Physician: Lucy Woods MD Discharge Summary HISTORY OF PRESENT ILLNESS: Heather is a 69yo female w/ notable PMHx of CAD s/p CABG 2018, IDDMII, htn, left hip fragility fx 03/2020 s/p sx repair, chronic leukocytosis, CKD, hld, gastric bypass sx, who presented to the ED via EMS on 06/20/2020 after she fell on her rear end while attempting to transition from the toilet to her wheelchair while at home. The patient suffered a fall at [facility] in March 2020, resulting in a left hip fracture that was surgically repaired in [place], [place]. She was then admitted for rehab in [place] and was only discharged from rehab earlier in the day on 06/20, after nearly spending 2 months there post-op. At the time of her fall on 06/20, she had returned home and was being assisted by both her and her daughter. She reports continued limited mobility related to her repair, hip and continues to have dull, intermittent 56/10 left hip pain. Both she and her family expressed concern about her ability to remain safe while living at home, considering all the systems she needs for even simple maneuvering. In addition, she reports that approximate 45 days ago while still at the [place] rehabilitation facility, she was diagnosed with an urinary tract infection and started on linezolid. At the time of her discharge on 06/20 from rehab, she reportedly had about 10 days remaining on the script. Upon the time of diagnosis for the UTI, she reported having symptoms in the form of dysuria. Upon presentation to the ED, she was found to have hyperkalemia (sK 6.3), acute renal failure on CKD (BUN 49/Cr 3.11, baseline Cr about 1-1.2/calculated GFR 15%), pseudohyponatremia (sNa 130, corrected was 136), leukocytosis (WBC 15.6; has h/o chronic leukocytosis), anemia (Hgb 11.3), and hyperglycemia (sGlu 456). Imaging carried out in ED was unremarkable other than a repeat of an acute fracture of the left hip. After extensive discussion and review with the ED providers, the read of an acute left hip fracture looks changed from multiple x- ray comparison studies since her fracture in March 2020. Due to the fact that this has been a constant finding on imaging over the past 2 months, it was deemed to not be a new/acute fracture. Patient was subsequently admitted under the care of the hospitalist service primarily for monitoring and treatment of hyperkalemia secondary to acute kidney injury superimposed on chronic kidney disease. HOSPITAL COURSE: Left hip pain was found to be chronic s/p ORIF 2 months ago. Per discussion with ED providers, this read as an acute fracture appears unchanged from the multiple previous hip/pelvis xrays pt has had since her fall and fracture in March 2020; so, by virtue of comparison studies, this is not a new/acute fracture for the patient. She was continued on PT/OT and it was suggested to c/w rehabil itation prior to d/c home. Pain was controlled. -Dr. Childs who was her orthopedic surgeon, he recommended conservative treatment with physical therapy. She can f/u with them as o/p after discharge to facility. Anemia possibly to chronic kidney disease? as watched carefully and she showed no s/s of bleeding. Would recommend f/u CBC as o/p. Proteus UTI was treated inpatient. All other chronic issues were stable. On 06/29/20 patient was discharged to [facility] to continue rehabilitation. She had no acute complaints or concerns at time of discharge. COVID was neg at discharge. PAST MEDICAL HISTORY: CAD s/p CABG with 2 wall replacement at [facility] in [place], [place] in October 2018 IDDMII with neuropathy HTN Left hip fragility fracture 2/2 fall at [facility], s/p surgical repair and 2 month rehab in [place], [place] - March 2020 Chronic leukocytosis, follows as outpatient with hematology; no current intervention warranted and likely reactive per last hematology office visit note on 04/20/2020 HLD S/p gastric bypass surgery around CKD Carpal tunnel, right wrist PAST SURGICAL HISTORY: Cardiac bypass surgery with 2 wall replacement at [facility] in [place], October 2018 Gastric bypass surgery approximately 12 or 13 years ago (about ) Total hysterectomy w/ BSO 1981 Right shoulder surgery for calcium buildup, approximately 30 years ago SOCIAL HISTORY: , lives with in [place], [place].. She is retired and is a former childcare provider. She has 3 children - - 2 sons and 1 daughter. Former cigarette smoker, having quit 39 years ago after averaging one pack per day for about 20 years. Formally drink alcohol on a very infrequent and social basis, with her last drink coming in 2001. Denies any current or former illicit drug use. FAMILY HISTORY: Father: , emphysema Mother: DMII 4 total brothers, 3 of whom are . The living brother has has DMII. 2 sisters, both are . One sister had DMII and unspecified breathing issues; other sister was thought to have colon ca but was never officially diagnosed or worked-up. ALLERGIES: Please see below. DISCHARGE MEDICATIONS: Please see below. PHYSICAL EXAM: VS: please see below GENERAL APPEARANCE: NAD, resting comfortably at bedside chair HEENT: no scleral icterus, no JVD, EOMI CARDIOVASCULAR: S1S2 LUNGS: CTA ABDOMEN: soft & not tender w palpitation MUSCULOSKELETAL: Tenderness over left hip INTEGUMENT: no generalized pallor NEUROLOGICAL: cranial nerve function from 2-12 intact intact, follows commands, speech not dysarthric LABORATORY: Please see below ASSESSMENT This is a 70yo female w/ notable h/o recent left hip fragility fracture a/p sx repair and rehab, CAD s/p CABG, IDDMII w/ neuropathy, htn, hld, ckd, who presented to ED via EMS on 06/20/2020 after falling onto rear end from a low height at home just hours after being discharged from [place], [place] rehab s/p Mar 2020 left hip fx surgery. In the ED, she was found to have hypernatremia along with acute kidney injury on chronic kidney disease and was subsequently admitted for continued treatment and monitoring with added element of possible placement versus home health due to overall deconditioning and safety concerns at home. PLAN: Left hip pain, chronic. S/p ORIF 2 months ago. -pain controlled -Per last attending's note: "Per lengthy discussion with ED providers, this read as an acute fracture appears unchanged from the multiple previous hip/pelvis xrays pt has had since her fall and fracture in March 2020; so, by virtue of comparison studies, this is not a new/acute fracture for the patient" -C/w pain management -PT/OT -Dr. Childs who was her orthopedic surgeon, he recommended conservative treatment with physical therapy. She can f/u with them as o/p after discharge to facility. Anemia possibly to chronic kidney disease? -H/H has improved -No s/s of bleeding but will order occult blood -F/u CBC as o/p Proteus UTI -Cx on file -WBC wnl -Completed treatment augmentin 06/29/20 CKD Stage III -Cr 1.26 -F/u labs regularly, avoid nephrotoxic meds Type 2 diabetes -BS not controlled -Diabetes diet -Insulin sliding scale -Long acting insulin 15 U SC BID Deconditioning -PT/OT Osteoporosis -Vitamin D, calcium supplementation Chronic leukocytosis -Currently WBC wnl -WBC upon admission of 15.6 -upon review of records, pt has had leukocytosis going back to at least the year 1999 -Pt is following with hematology for this as an outpatient and was last seen two months ago (04/20/2020), at which time the industrial coffee grinder felt no intervention was warranted as it was most likely a manifestation of a reactive process and all previous genetic mutation tests were negative -Follow-up with industrial coffee grinder in the outpatient settings CAD, s/p CABG 2018 -Home aspirin and atorvastatin HLD -C/w home zetia and atorvastatin Resolved issues: Acute renal failure superimposed on chronic kidney disease stage IIIa 2/2 to dehydration, prerenal Hyperkalemia DISPOSITION: D/c to [facility] today TIME SPENT ON DISCHARGE: Greater than 30 minutes. Vital Signs/I&Os Vital Signs Date Time Temp Pulse Resp B/P (MAP) Pulse Ox O2 Delivery O2 Flow Rate FiO2 06/29/20 08:07 79 109/51 06/29/20 06:00 98.3 18 96 Room Air I&O- Last 24 Hours up to 6 AM 06/29/20 06:00 Intake Total 900 ml Output Total 800 ml Balance 100 ml Laboratory Data Labs 24H Laboratory Tests 2 06/28/20 20:34: Bedside Glucose (Misc Panel) 207H 06/29/20 05:53: Bedside Glucose (Misc Panel) 148H 06/29/20 09:59: Coronavirus (COVID-19)(PCR) NEGATIVE 06/29/20 11:57: Bedside Glucose (Misc Panel) 237H FSBS Laboratory Tests Test 06/28/20 20:34 06/29/20 05:53 06/29/20 11:57 Range/Units Bedside Glucose (Misc Panel) 207 148 237 83-110 MG/DL Microbiology Microbiology 06/24/20 Blood Culture - Final, Complete NO GROWTH AFTER 5 DAYS 06/23/20 Urine Culture - Final, Complete Proteus Mirabilis 06/20/20 Urine Culture - Final, Complete Discharge Medications Scheduled Ascorbic Acid (Vitamin C) 1,000 Mg Tablet, 1,000 MG PO DAILY, (Reported) Aspirin (Aspirin EC) 81 Mg Tab, 81 MG PO DAILY, (Reported) Atorvastatin Calcium (Lipitor) 20 Mg Tab, 20 MG PO DAILY, (Reported) Calcium Carbonate/Vitamin D3 (Calcium 600-Vit D3 200 Tablet) 1 Each Tablet, 1 TAB PO BID, (Reported) Cholecalciferol (Vitamin D3) (Vitamin D3) 1,000 Unit Tablet, 1,000 UNITS PO DAILY, (Reported) Escitalopram Oxalate (Escitalopram Oxalate) 5 Mg/5 Ml Solution, 5 MG PO DAILY Ezetimibe (Ezetimibe) 10 Mg Tablet, 10 MG PO DAILY, (Reported) Ferrous Sulfate (Ferrous Sulfate) 325 Mg Tablet, 325 MG PO DAILY, (Reported) Furosemide (Furosemide) 40 Mg Tablet, 40 MG PO DAILY, (Reported) Gabapentin (Gabapentin) 100 Mg Capsule, 100 MG PO TID, (Reported) Insulin Glargine,Hum.rec.anlog (Basaglar Kwikpen U-100) 100 Unit/1 Ml Insuln.pen, 15 UNIT SC BID Insulin Human Lispro (Humalog) 100 Unit/1 Ml Vial, 0 UNITS SC AC Insulin Human Lispro (Humalog) 100 Unit/1 Ml Vial, 0 UNITS SC QHS Latanoprost/Pf (Latanoprost 0.005% Eye Drop) 7.5 Ml Drops, 1 DROP OU QHS, (Reported) Linezolid (Linezolid) 600 Mg Tablet, 600 MG PO DAILY, (Reported) Metoclopramide HCl (Metoclopramide HCl) 5 Mg Tablet, 5 MG PO DAILY Metoprolol Tartrate (Metoprolol Tartrate) 25 Mg Tablet, 37.5 MG PO BID, (Reported) Multivitamins (Thera M Plus Tablet) 1 Each Tablet, 1 TAB PO DAILY, (Reported) Nystatin (Nystop) 60 Gm Powder, 1 DOSE TOP BID Morrow-3/Dha/Epa/Fish Oil (Morrow-3 Fish Oil 1,000 mg Sfgl) 1,000 Mg Capsule, 1 CAP PO DAILY, (Reported) Omeprazole (Omeprazole) 20 Mg Cap, 40 MG PO DAILY, (Reported) Timolol Maleate (Timolol Maleate) 0.5% 5ML Drops, 1 DROP OU DAILY, (Reported) Zolpidem Tartrate (Ambien) 5 Mg Tab, 5 MG PO QHS, (Reported) Scheduled PRN Acetaminophen (Acetaminophen) 325 Mg Tablet, 650 MG PO Q6HP PRN for PAIN OR FEVER Clotrimazole/Betamethasone Dip (Clotrimazole-Betamethasone Crm) 15 Gm Cream..g., 1 DOSE TOP BID PRN for RASH, (Reported) APPLIES UNDER BREASTS AND STOMACH FOLDS Docusate Sodium (Colace) 100 Mg Capsule, 100 MG PO DAILY PRN for CONSTIPATION, (Reported) Glucagon,Human Recombinant (Glucagen) 1 Mg/1 Ml Vial, 1 MG SC ASDIRECTED PRN for SEE LABEL COMMENTS Metoclopramide HCl (Metoclopramide HCl) 5 Mg Tablet, 5 MG PO Q8HP PRN for NAUSEA OR VOMITING Allergies Coded Allergies: naproxen (Verified Allergy, Mild, Rash, 11/17/18) Lucy Woods MD Jun 29, 2020 17:01
== END 2020-06-29 13:25 | DRG 683 ==
LOC: M ED 19:00 → M ED INP 21:05 → M MSPAV 06-21 17:35
PROVIDERS: ADMIT Internal Medicine; ATTEND Internal Medicine
DX: N17.9 Acute kidney failure, unspecified (principal); E87.1 Hypo-osmolality and hyponatremia; N39.0 Urinary tract infection, site not specified; N18.31 Chronic kidney disease, stage 3a; E87.5 Hyperkalemia; I25.10 Atherosclerotic heart disease of native coronary artery without angina pectoris; E11.40 Type 2 diabetes mellitus with diabetic neuropathy, unspecified; I12.9 Hypertensive chronic kidney disease with stage 1 through stage 4 chronic kidney disease, or unspecified chronic kidney disease; Z87.891 Personal history of nicotine dependence; D63.1 Anemia in chronic kidney disease; F32.9 Major depressive disorder, single episode, unspecified; M81.0 Age-related osteoporosis without current pathological fracture

== ENCOUNTER → 2020-07-03 | Outpatient (CLI) | payer MEDICARE ==
[~2020-07-03] MED LIST changes: +ACET1TAB55 PO; +CALC-239 PO; +CLOT1CRE71 TOP; +D31000TA2 PO; +ESCI5SOL3 PO; +FERR325T18 PO; +FURO40TA2 PO; +GABA-1171 PO; +GLUC1INJ21 SC; +LINE1TAB PO; +METO25TA4 PO; +NYST10006 TOP; +OMEGCAP4 PO; +VITA100024 PO; +VITMTA PO
--- NOTE | 2020-07-03 15:08 | REP ---
INDICATION: HEADACHES, NECK PAIN PT IN CT HOLDING AREA. COMPARISON: November 17, 2018.. TECHNIQUE: Helical scanning is acquired. 5 mm axial images were reformatted. Coronal MPR images were generated. FINDINGS: Bone window settings demonstrate an intact bony calvarium. There is no evidence of skull fracture or incidental bony calvarial lesion. The visualized paranasal sinuses appear clear. No intraorbital abnormality is seen. On soft tissue window setting images; the lateral, third, and fourth ventricles are normal in size and position. Villalpando-white differentiation pattern is normal above and below the tentorium. There are is no evidence of intracranial hemorrhage. No mass, edema, infarction, or midline shift is seen. No extra-axial fluid collection is appreciated. There is extensive vascular calcification in the distal internal carotid arteries bilaterally. There is mild generalized volume loss. IMPRESSION: Generalized volume loss and vascular calcification. Some small vessel changes. No acute intracranial abnormality. Findings unchanged from the November 17, 2018 prior study.. <Electronically signed by Guzman Florian > 07/03/20 [id number]
--- NOTE | 2020-07-03 15:12 | REP ---
INDICATION: HEADACHES, NECK PAIN PT IN CT HOLDING AREA. COMPARISON: None. TECHNIQUE: Helical scanning is acquired and 3 mm axial images are generated. Coronal and sagittal MPR images are provided. FINDINGS: Digital substation supervisor view demonstrates that the patient is edentulous. There are degenerative spondylosis changes in the cervical spine. No acute bony abnormality is seen. A mild levoconvex curvature is present. Vascular calcification is noted extensively in the carotid bifurcation regions, left more prominently than right. The maxillary, mastoid, sphenoid, ethmoid sinuses are clear. No intraorbital abnormality is seen. Parotid and submandibular glands are normal and symmetric. Thyroid lobes are unremarkable. Air is present in the upper thoracic and cervical esophagus at the time of the scan. No mobile neck mass or adenopathy is seen. IMPRESSION: Degenerative spondylosis in the cervical spine. Extensive vascular calcification is carotids, particularly on the left. No mass or adenopathy seen <Electronically signed by Guzman Florian > 07/03/20 [id number]
== END ==
LOC: M RAD 14:33
PROVIDERS: ATTEND Nurse Practitioner Family
DX: M47.812 Spondylosis without myelopathy or radiculopathy, cervical region (principal); R51.9 Headache, unspecified; M54.2 Cervicalgia; Z20.828 Contact with and (suspected) exposure to other viral communicable diseases

== ENCOUNTER → 2020-07-03 | Outpatient (REF) | payer MEDICARE ==
[2020-07-03 09:23] LABS: RSV AMPLIFICATION NEGATIVE (NEGATIVE)
== END ==
LOC: SKLAB2 08:19
PROVIDERS: ATTEND Internal Medicine
DX: R51.9 Headache, unspecified (principal); Z20.828 Contact with and (suspected) exposure to other viral communicable diseases

== ENCOUNTER → 2020-07-05 | Outpatient (REF) | LOC: SKLAB2 07:00 | PROVIDERS: ATTEND Internal Medicine | DX: Z11.52 Encounter for screening for COVID-19 (principal) ==

== ENCOUNTER → 2020-07-06 | Outpatient (REF) | payer MEDICARE | LOC: SKLAB2 10:15 | PROVIDERS: ATTEND Internal Medicine | DX: Z86.14 Personal history of Methicillin resistant Staphylococcus aureus infection (principal); Z79.899 Other long term (current) drug therapy ==

== ENCOUNTER → 2020-07-10 | Outpatient (REF) | payer MEDICARE | LOC: SKLAB2 11:14 | PROVIDERS: ATTEND Internal Medicine | DX: Z11.2 Encounter for screening for other bacterial diseases (principal); Z86.14 Personal history of Methicillin resistant Staphylococcus aureus infection ==

== ENCOUNTER → 2020-07-11 | Outpatient (REF) | payer MEDICARE ==
[2020-07-11 11:08] LABS: HEMATOCRIT 34.3 % (36.0-47.0); HEMOGLOBIN 10.3 g/dl (12.0-15.5); MEAN CORPUSCULAR HEMOGLOBIN 28.6 pg (27.0-33.0); MEAN CORPUSCULAR VOLUME 95.3 fl (80.0-96.0); PLATELET COUNT, AUTOMATED 321 10^3/uL (150-450); WHITE BLOOD COUNT 11.6 10^3/uL (4.0-10.0)
[2020-07-11 11:30] LABS: CREATININE FOR GFR 1.62 MG/DL (0.55-1.30); GLOMERULAR FILTRATION RATE 33.3 (>39)
== END ==
LOC: SKLAB2 11:05
PROVIDERS: ATTEND Internal Medicine
DX: D64.9 Anemia, unspecified (principal); E11.9 Type 2 diabetes mellitus without complications

== ENCOUNTER → 2020-07-12 | Outpatient (REF) ==
[2020-07-12 14:10] LABS: APPEARANCE, URINE TURBID (CLEAR); BACTERIA, URINE AUTO NEGATIVE (NEGATIVE); BILIRUBIN, URINE AUTO NEGATIVE (NEGATIVE); BLOOD, URINE BLOOD 2+ (NEGATIVE); COLOR, URINE YELLOW (YELLOW); GLUCOSE, URINE (UA) AUTO 1+ mg/dL (NEGATIVE); KETONE, URINE AUTO NEGATIVE (NEGATIVE); LEUKOCYTE ESTERASE, URINE AUTO 3+ (NEGATIVE); NITRITE, URINE AUTO NEGATIVE (NEGATIVE); PROTEIN, URINE AUTO 2+ mg/dL (NEGATIVE); RBC, URINE AUTO 16 /HPF (0-3); SPECIFIC GRAVITY URINE AUTO 1.012 (1.002-1.035); SQUAMOUS EPITHELIAL CELL UR AU 6 /HPF (0-6); UROBILINOGEN, URINE AUTO 0.2 mg/dL (0.0-2.0); WBC, URINE AUTO TNTC /HPF (0-3)
== END ==
LOC: SKLAB7 11:00
PROVIDERS: ATTEND Internal Medicine
DX: Z20.822 Contact with and (suspected) exposure to COVID-19 (principal)

== ENCOUNTER → 2020-07-14 | Outpatient (REF) ==
[2020-07-14 09:01] LABS: CALCIUM LEVEL 8.8 MG/DL (8.8-10.2); CREATININE FOR GFR 1.37 MG/DL (0.55-1.30); GLOMERULAR FILTRATION RATE 40.5 (>39); POTASSIUM SERUM 4.5 MEQ/L (3.5-5.1)
== END ==
LOC: SKLAB7 07:00
PROVIDERS: ATTEND Internal Medicine
DX: Z79.899 Other long term (current) drug therapy (principal)

== ENCOUNTER → 2020-07-17 | Outpatient (REF) | LOC: SKLAB7 12:28 | PROVIDERS: ATTEND Internal Medicine | DX: Z86.14 Personal history of Methicillin resistant Staphylococcus aureus infection (principal); Z11.2 Encounter for screening for other bacterial diseases ==

== ENCOUNTER → 2020-07-19 | Outpatient (REF) | LOC: SKLAB7 07:00 | PROVIDERS: ATTEND Internal Medicine | DX: Z11.52 Encounter for screening for COVID-19 (principal) ==

== ENCOUNTER → 2020-07-26 | Outpatient (REF) | LOC: SKLAB7 10:15 | PROVIDERS: ATTEND Internal Medicine | DX: Z20.822 Contact with and (suspected) exposure to COVID-19 (principal) ==

== ENCOUNTER → 2020-07-28 | Outpatient (REF) | LOC: SKLAB7 11:34 | PROVIDERS: ATTEND Internal Medicine | DX: Z86.14 Personal history of Methicillin resistant Staphylococcus aureus infection (principal); Z11.2 Encounter for screening for other bacterial diseases ==

== ENCOUNTER → 2020-08-01 | Outpatient (REF) | payer MEDICARE, SELFPAY | LOC: SKLAB7 08:00 | PROVIDERS: ATTEND Internal Medicine | DX: E55.9 Vitamin D deficiency, unspecified (principal); Z79.899 Other long term (current) drug therapy ==

== ENCOUNTER → 2020-08-09 | Outpatient (REF) | payer SELFPAY | LOC: SKLAB7 11:22 | PROVIDERS: ATTEND Internal Medicine | DX: Z20.822 Contact with and (suspected) exposure to COVID-19 (principal); Z53.9 Procedure and treatment not carried out, unspecified reason ==

== ENCOUNTER → 2020-08-24 | Outpatient (CLI) | payer MEDICARE ==
--- NOTE | 2020-08-24 14:44 | REP ---
INDICATION: PAIN AND SWELLING OF LEFT LEG; R/O DVT. COMPARISON: None. TECHNIQUE: Left lower extremity duplex venous ultrasound. FINDINGS: The deep veins are anechoic and fully compressible from the groin to the popliteal fossa in the left lower extremity. Color flow imaging is homogeneous. Spectral Doppler interrogation demonstrates intact respiratory variation in flow and normal manual augmentation of flow. There is no evidence of deep vein thrombosis. IMPRESSION: Negative left lower extremity duplex venous ultrasound. No evidence of deep vein thrombosis. <Electronically signed by Guzman Florian > 08/24/20 [id number]
== END ==
LOC: M RAD 14:02
PROVIDERS: ATTEND Nurse Practitioner Adult Health
DX: M79.605 Pain in left leg (principal)

== ENCOUNTER → 2020-09-28 | Outpatient (REF) | payer MEDICARE | LOC: M LAB REF 12:09 | PROVIDERS: ATTEND Nurse Practitioner Adult Health | DX: L89.623 Pressure ulcer of left heel, stage 3 (principal) ==

== ENCOUNTER → 2020-10-31 | Outpatient (POV) | payer MEDICARE ==
[~2020-10-31] VITALS: Ht 157.5 cm; Wt 97.3 kg
[~2020-10-31] MED LIST changes: +FERR324T21 PO; -FERR325T16 PO
[2020-10-31 15:24] VITALS: BP 144/67
--- NOTE | 2020-11-01 11:40 | IRCOV ---
[facility] IR Consult Office Visit IR Consult Office Visit DATE: October 31, 2020 REASON FOR CONSULTATION/CHIEF COMPLAINT: Left heel ulcer. HISTORY OF PRESENT ILLNESS: 70-year-old diabetic female with coronary artery disease, CABG and multiple valve replacements 2 years ago, presents for nonhealing left heel ulcer. Patient describes this started in March 2020. She states she does not have any sensation in the feet for a long time and the ulcer does not hurt. The ulcer started in association with a prolonged hospital admission. She is seeing wound care for the past month and says the ulcer is getting better now. She denies excessive bleeding or drainage from the ulcer. She walks with a walker. She denies intermittent claudication, rest pain or pain with leg elevation. She denies any problems in the right leg. She reports that both her legs swell. Patient denies any prior angiography and/or intervention in the lower extremities. Patient denies any prior lower extremity surgery or bypass, cold leg, gangrene or amputations. Patient denies chest pain, shortness of breath, paroxysmal nocturnal dyspnea or orthopnea. ALLERGIES: Please see below. HOME MEDICATIONS: Please see below. PAST MEDICAL HISTORY: CAD Hypertension Diabetes Hyperlipidemia Osteoporosis Polyneuropathy GERD Neoplasm of colon Obesity PAST SURGICAL HISTORY: CABG 2019 AVR and MVR prosthesis 2019 gastric bypass 2007 cataract removal Shoulder arthroscopy Left hip fracture repair 2019 Cardiac catheterization 2018 FAMILY HISTORY: Noncontributory. SOCIAL HISTORY: Ex-smoker. Quit in 1988. Smoked for 20 years. Denies alcohol or drugs. REVIEW OF SYSTEMS: Otherwise negative. PHYSICAL EXAMINATION: VITAL SIGNS: Please see below. GENERAL APPEARANCE: Appears well. Comfortable at rest. HEENT: No scleral icterus. RESPIRATORY: Normal breathing at rest. CARDIOVASCULAR: Normal rate. ABDOMEN: Soft nontender. Central obesity. EXTREMITIES: Left lower extremity: Mild edema. Skin dry, warm. Heel ulcer. DP PT nonpalpable. Popliteal pulse negative. Motor 4 out of 5. sensation absent to mid-tibia. No gangrene. No amputations. Right lower extremity: Mild edema. Skin warm to touch. No ulcers. DP +1 PT negative. motor 4 out of 5. sensory loss to the mid tibia. No gangrene. No amputations. NEUROLOGICAL: Alert and oriented. Normal gait. PSYCHIATRIC: Appropriate to circumstance. LABORATORY DATA: 07/11/2020 hemoglobin 10.3 hematocrit 34.3 WBC 11.6 platelets 321 07/14/2020 sodium 136 potassium 4.5 BUN 46 creatinine 1.37 GFR 40.5 06/21/2020 hemoglobin A1c 8.4 10/26/2019 LDL 34 Imaging: I personally reviewed the left lower extremity arterial ultrasound. ABIs cannot be established due to calcified noncompressible vessels. There is below-knee arterial disease with posterior tibial artery and tibio peroneal trunk stenosis. ASSESSMENT/PLAN: 70-year-old diabetic female with coronary artery disease, presents with nonhealing left heel ulcer, associated with below-knee arterial stenosis on ultrasound. I agree patient would benefit from angiography and/or intervention in the same setting if possible. We discussed the risks and benefits of the procedure. Patient would like to proceed. We have scheduled the patient for left lower extremity angiography and/or intervention. I spent 45 minutes reviewing patient's records, imaging and in consultation with the patient. Thank you for this referral. Cc Dr. Arana Allergies Coded Allergies: naproxen (Verified Allergy, Mild, Rash, 11/17/18) Home Medications Scheduled Ascorbic Acid (Vitamin C), 1,000 MG PO DAILY, (Reported) Aspirin (Aspirin EC), 81 MG PO DAILY, (Reported) Atorvastatin Calcium (Lipitor), 20 MG PO DAILY, (Reported) Calcium Carbonate/Vitamin D3 (Calcium 600-Vit D3 200 Tablet), 1 TAB PO BID, (Reported) Cholecalciferol (Vitamin D3) (Vitamin D3), 1,000 UNITS PO DAILY, (Reported) Escitalopram Oxalate (Escitalopram Oxalate), 5 MG PO DAILY Ezetimibe (Ezetimibe), 10 MG PO DAILY, (Reported) Ferrous Sulfate (Ferrous Sulfate), 325 MG PO DAILY, (Reported) Furosemide (Furosemide), 40 MG PO DAILY, (Reported) Gabapentin (Gabapentin), 100 MG PO TID, (Reported) Insulin Glargine,Hum.rec.anlog (Basaglar Kwikpen U-100), 15 UNIT SC BID Insulin Human Lispro (Humalog), 0 UNITS SC AC Insulin Human Lispro (Humalog), 0 UNITS SC QHS Latanoprost/Pf (Latanoprost 0.005% Eye Drop), 1 DROP OU QHS, (Reported) Linezolid (Linezolid), 600 MG PO DAILY, (Reported) Metoclopramide HCl (Metoclopramide HCl), 5 MG PO DAILY Metoprolol Tartrate (Metoprolol Tartrate), 37.5 MG PO BID, (Reported) Multivitamins (Thera M Plus Tablet), 1 TAB PO DAILY, (Reported) Nystatin (Nystop), 1 DOSE TOP BID [place]-3/Dha/Epa/Fish Oil ([place]-3 Fish Oil 1,000 mg Sfgl), 1 CAP PO DAILY, (Reported) Omeprazole (Omeprazole), 40 MG PO DAILY, (Reported) Timolol Maleate (Timolol Maleate), 1 DROP OU DAILY, (Reported) Zolpidem Tartrate (Ambien), 5 MG PO QHS, (Reported) Scheduled PRN Acetaminophen (Acetaminophen), 650 MG PO Q6HP PRN for PAIN OR FEVER Clotrimazole/Betamethasone Dip (Clotrimazole-Betamethasone Crm), 1 DOSE TOP BID PRN for RASH, (Reported) Docusate Sodium (Colace), 100 MG PO DAILY PRN for CONSTIPATION, (Reported) Glucagon,Human Recombinant (Glucagen), 1 MG SC ASDIRECTED PRN for SEE LABEL COMMENTS Metoclopramide HCl (Metoclopramide HCl), 5 MG PO Q8HP PRN for NAUSEA OR VOMITING VS, I&O, 24H, Fishbone Vital Signs/I&O Vital Signs Date Time Temp Pulse Resp B/P (MAP) Pulse Ox O2 Delivery O2 Flow Rate FiO2 10/31/20 15:24 96.6 71 20 144/67 (92) 98 Room Air GINGER STODDARD MD November 01, 2020 11:40
== END ==
LOC: M IRPOV 15:10
PROVIDERS: ATTEND Radiology Diagnostic Radiology
DX: E11.621 Type 2 diabetes mellitus with foot ulcer (principal); E11.42 Type 2 diabetes mellitus with diabetic polyneuropathy; L97.429 Non-pressure chronic ulcer of left heel and midfoot with unspecified severity; I73.9 Peripheral vascular disease, unspecified; E66.9 Obesity, unspecified; E78.5 Hyperlipidemia, unspecified; I10 Essential (primary) hypertension; I25.10 Atherosclerotic heart disease of native coronary artery without angina pectoris; K21.9 Gastro-esophageal reflux disease without esophagitis; M81.0 Age-related osteoporosis without current pathological fracture; Z79.4 Long term (current) use of insulin; Z79.899 Other long term (current) drug therapy; Z85.038 Personal history of other malignant neoplasm of large intestine; Z88.6 Allergy status to analgesic agent; Z87.891 Personal history of nicotine dependence; Z95.4 Presence of other heart-valve replacement; Z95.5 Presence of coronary angioplasty implant and graft; Z98.84 Bariatric surgery status

== ENCOUNTER → 2020-11-03 | Outpatient (CLI) | payer MEDICARE ==
--- NOTE | 2020-11-03 11:17 | REPMRS ---
Patient History The patient states she has not had a clinical breast exam in over a year. Patient is postmenopausal. Family history of breast cancer at age 45 in niece, breast cancer at age 35 in niece, breast cancer at age 35 in maternal niece. Took hormonal contraceptives for 6 months. Patient states no breast complaints today. Patient has signed MRS History Sheet. Digital Woman Screen Mammo: November 03, 2020 - Exam #: [id number] Bilateral CC and MLO view(s) were taken. Technologist: Lizeth Mckay, Dietist Prior study comparison: June 15, 2014, bilateral bilat screen digital mammo, performed at [facility] ([facility]). June 14, 2013, bilateral bilat screen digital mammo, performed at [facility] ([facility]). FINDINGS: There are scattered fibroglandular densities. Screening. Digital screening (2D) mammography was performed bilaterally in the CC and MLO projections. Additionally, breast tomosynthesis (3D mammography) was performed bilaterally in the CC and MLO projections. Todays exam was compared to the prior exams(s). By history, the patient has no complaints of a palpable breast abnormality or other significant breast complaints. The breasts are unchanged in size and shape. There are no amilcar-soft tissue densities or spiculated masses. There is no internal architectural distortion.Once again, stable benign appearing calcifications are seen. There are no suspicious amilcar-calcific clusters. Skin thickening or nipple retraction is not present. IMPRESSION: BI-RADS Category 2- Benign Findings(s). There is no evidence of malignant alteration of the breasts. Followup examination recommended in one year. The Volpara volumetric breast density category is B, there are scattered areas of fibroglandular density. This mammogram was read with the assistance of [employer],an FDA approved computer aided detection system for mammography. The lifetime Tyrer-Cuzick score is 3.6 % Negative x-ray reports should not delay surgical consultation if a dominant or clinically suspicious mass is present. Not all breast cancers can be identified by mammography. Therefore, we recommend that you continue to perform regular breast self-examination and physical examination and then promptly contact your physician of any concerns or changes. Adenosis and dense breasts may obscure an underlying neoplasm. Assessment: BI-RADS/ACR category 2 mammogram. Benign Findings. Recommendation Routine screening mammogram of both breasts in 1 year. Electronically Signed By: Finesse Hodges DO 11/03/20 1111
== END ==
LOC: M WHC 10:05
PROVIDERS: ATTEND Nurse Practitioner Adult Health
DX: Z12.31 Encounter for screening mammogram for malignant neoplasm of breast (principal); Z78.0 Asymptomatic menopausal state; Z80.3 Family history of malignant neoplasm of breast

== ENCOUNTER 2020-11-15 09:10 | Inpatient (IN) | payer MEDICARE ==
[~2020-11-15] VITALS: Ht 157.5 cm; Wt 105.0 kg
[2020-11-15] MEDS ORDERED: ISOVUE-300 61% 50ML VIAL As Ordered ONE ×3 (09:48→15:41)
[2020-11-15] MEDS ORDERED: LIDOCAINE 1% MDV 20ML VIAL As Ordered ONE ×2 (09:48→15:41)
[2020-11-15 10:26] LABS: HEMOGLOBIN 12.2 g/dl (12.0-15.5); MEAN CORPUSCULAR HEMOGLOBIN 30.4 pg (27.0-33.0); MEAN CORPUSCULAR HGB CONC 31.3 g/dl (32.0-36.5); MEAN CORPUSCULAR VOLUME 97.3 fl (80.0-96.0); PLATELET COUNT, AUTOMATED 253 10^3/uL (150-450); RED BLOOD COUNT 4.01 10^6/uL (4.00-5.40); WHITE BLOOD COUNT 12.6 10^3/uL (4.0-10.0)
[2020-11-15] MEDS ORDERED: MIDAZOLAM INJ 2MG/2ML VIAL (J2250 PER 1MG) As Ordered ONE (10:40)
[2020-11-15] MEDS ORDERED: diphenhydrAMINE 50MG/ML VIAL (J1200) As Ordered ONE (10:40)
[2020-11-15] MEDS ORDERED: fentaNYL 100 MCG/2 ML INJECTION (J3010) As Ordered ONE (10:40)
--- NOTE | 2020-11-15 10:40 | IRHP ---
[facility] IR Pre-Procedure H & P General Date of Service: November 15, 2020 Procedure: Same Day Surgery Interval History and Physical I have seen the patient and reviewed last H & P performed within 30 days. There is no significant interval change. History of Present Illness Chief Complaint The patient is a 70-year-old female admitted with a reason for visit of PAD. PRE-PROCEDURE DIAGNOSIS: PAD HEART: Normal rate. LUNGS: Normal breathing at rest. ASA Classification ASA Classification: III-Severe systemic dis. Mallampati Score: II NPO: Yes Problems with prior sedation: No Obstructive Sleep Apnea: No Plan moderate sedation Allergies Coded Allergies: naproxen (Verified Allergy, Mild, Rash, 11/17/18) Home Medications Scheduled Ascorbic Acid (Vitamin C), 1,000 MG PO DAILY, (Reported) Aspirin (Aspirin EC), 81 MG PO DAILY, (Reported) Atorvastatin Calcium (Lipitor), 20 MG PO DAILY, (Reported) Calcium Carbonate/Vitamin D3 (Calcium 600-Vit D3 200 Tablet), 1 TAB PO BID, (Reported) Cholecalciferol (Vitamin D3) (Vitamin D3), 1,000 UNITS PO DAILY, (Reported) Escitalopram Oxalate (Escitalopram Oxalate), 5 MG PO DAILY Ezetimibe (Ezetimibe), 10 MG PO DAILY, (Reported) Ferrous Sulfate (Ferrous Sulfate), 325 MG PO DAILY, (Reported) Furosemide (Furosemide), 40 MG PO DAILY, (Reported) Gabapentin (Gabapentin), 100 MG PO TID, (Reported) Insulin Glargine,Hum.rec.anlog (Basaglar Kwikpen U-100), 15 UNIT SC BID Insulin Human Lispro (Humalog), 0 UNITS SC AC Insulin Human Lispro (Humalog), 0 UNITS SC QHS Latanoprost/Pf (Latanoprost 0.005% Eye Drop), 1 DROP OU QHS, (Reported) Metoclopramide HCl (Metoclopramide HCl), 5 MG PO DAILY Metoprolol Tartrate (Metoprolol Tartrate), 37.5 MG PO BID, (Reported) Multivitamins (Thera M Plus Tablet), 1 TAB PO DAILY, (Reported) Nystatin (Nystop), 1 DOSE TOP BID [place]-3/Dha/Epa/Fish Oil ([place]-3 Fish Oil 1,000 mg Sfgl), 1 CAP PO DAILY, (Reported) Omeprazole (Omeprazole), 40 MG PO DAILY, (Reported) Timolol Maleate (Timolol Maleate), 1 DROP OU DAILY, (Reported) Zolpidem Tartrate (Ambien), 5 MG PO QHS, (Reported) Scheduled PRN Acetaminophen (Acetaminophen), 650 MG PO Q6HP PRN for PAIN OR FEVER Clotrimazole/Betamethasone Dip (Clotrimazole-Betamethasone Crm), 1 DOSE TOP BID PRN for RASH, (Reported) Docusate Sodium (Colace), 100 MG PO DAILY PRN for CONSTIPATION, (Reported) Glucagon,Human Recombinant (Glucagen), 1 MG SC ASDIRECTED PRN for SEE LABEL COMMENTS Metoclopramide HCl (Metoclopramide HCl), 5 MG PO Q8HP PRN for NAUSEA OR VOMITING VS, I&O, 24H, Fishbone Laboratory Data 24H LABS Laboratory Tests 2 11/15/20 10:02: Nucleated Red Blood Cells % (auto) 0.0 CBC/BMP Laboratory Tests 11/15/20 10:02 GINGER STODDARD MD November 15, 2020 10:40
[2020-11-15 10:58] LABS: CALCIUM LEVEL 8.9 MG/DL (8.8-10.2); CREATININE FOR GFR 1.08 MG/DL (0.55-1.30); GLOMERULAR FILTRATION RATE 53.2 (>39); POTASSIUM SERUM 4.9 MEQ/L (3.5-5.1)
[2020-11-15] MEDS ORDERED: PERCOCET 5MG/325MG TAB As Ordered ONE (13:19)
[2020-11-15] MEDS ORDERED: MORPHINE 10 MG/ML 1ML VIAL (J2270) As Ordered ONE (13:21)
[2020-11-15] MEDS ORDERED: ONDANSETRON 4MG/2ML VIAL IV PRN (13:50)
[2020-11-15] MEDS ORDERED: PERCOCET 5MG/325MG TAB PO PRN (13:50)
[2020-11-15] MEDS ORDERED: MORPHINE 10 MG/ML 1ML VIAL (J2270) IV ONE (13:55)
[2020-11-15] MEDS ORDERED: ONDANSETRON 4MG/2ML VIAL As Ordered ONE (13:57)
[2020-11-15 14:46] LABS: HEMATOCRIT 29.5 % (36.0-47.0); MEAN CORPUSCULAR HEMOGLOBIN 31.1 pg (27.0-33.0); MEAN CORPUSCULAR HGB CONC 30.8 g/dl (32.0-36.5); MEAN CORPUSCULAR VOLUME 100.7 fl (80.0-96.0); PLATELET COUNT, AUTOMATED 206 10^3/uL (150-450); RED BLOOD COUNT 2.93 10^6/uL (4.00-5.40)
[2020-11-15 14:56] LABS: HEMOGLOBIN 9.1 g/dl (12.0-15.5)
[2020-11-15] MEDS ORDERED: NORCO, ANEXSIA 5/325MG TABLET (HYDROcodone/ACETAMINOPHEN) PO PRN (17:35)
[2020-11-15] MEDS ORDERED: GLUCAGON INJ 1MG VIAL SC PRN (17:40)
[2020-11-15] MEDS ORDERED: GLUCOSE 4GM CHEW TABLET PO PRN (17:40)
[2020-11-15] MEDS ORDERED: DEXTROSE 50% 50 ML SYRINGE IV PRN (17:40)
--- NOTE | 2020-11-15 18:02 | IPNPDOC ---
Text Note Date of Service The patient was seen on 11/15/20. NOTE H+P dictated [id number] VS,Fishbone, I+O VS, Fishbone, I+O Laboratory Tests 11/15/20 10:02 11/15/20 14:15 Vital Signs Date Time Temp Pulse Resp B/P (MAP) Pulse Ox O2 Delivery O2 Flow Rate FiO2 11/15/20 17:09 65 20 100 Nasal Cannula 2.0 11/15/20 09:50 96.1 CHEYENNE BULLARD MD November 15, 2020 18:01
--- NOTE | 2020-11-15 18:38 | HPE ---
HISTORY AND PHYSICAL DATE OF ADMISSION: 11/15/2020 Patient is seen in the interventional radiology (IR) suite by me at approximately 5:15 p.m. CHIEF COMPLAINT: Status post right lower extremity angiogram complicated by large right groin hematoma and transient hypotension. HISTORY OF PRESENT ILLNESS: Heather Barreto is a pleasant 70-year-old woman who has history of coronary artery disease status post coronary artery bypass graft (CABG) in 2019, insulin dependent diabetes mellitus type 2, hypertension, chronic kidney disease (CKD) stage III, history of gastric bypass, as well as right lower extremity chronic diabetic ulcer. Patient had come in for an elective procedure to rule out any underlying vascular etiology to her chronic ulcer. She is followed at the wound clinic by Dr. Arana. Postprocedure, patient developed a hematoma and some hypotension. She was given morphine for pain, which caused her blood pressure to drop a little bit further. Dr. Clements then went in and investigated to make ensure that there was no single aneurysm or extravasation. None was found. Patient is currently hemodynamically stable. She is going to be admitted to the hospitalist service overnight for monitoring. ALLERGIES: NAPROSYN. CURRENT HOME MEDICATIONS: - Tylenol 650 mg every 6 hours as needed - ascorbic acid 1000 mg daily - baby aspirin daily - atorvastatin 20 mg daily - calcium carbonate one tablet by mouth twice a day - cholecalciferol 1000 units daily - Colace 100 mg daily as needed for constipation - citalopram 5 mg daily - [id number] mg daily - ferrous sulfate 325 mg daily - furosemide 40 mg daily - gabapentin 100 mg by mouth three times a day - Basaglar 50 units subcutaneous twice a day. - Lispro sliding scale - latanoprost eye drops each eye at bedtime - Reglan 5 mg by mouth daily - metoprolol 37.5 mg twice a day - multivitamin one capsule daily - fish oil one capsule daily - omeprazole 40 mg daily - timolol 0.5%, 5 mL drops, one drop daily - Ambien 5 mg by mouth at bedtime PAST MEDICAL HISTORY: Notable for: - Coronary artery disease. - Insulin dependent diabetes with neuropathy. - Hypertension. - Chronic leukocytosis. - Hyperlipidemia. - History of morbid obesity status post gastric bypass. - Chronic kidney disease (CKD) stage II-III. PAST SURGICAL HISTORY: Notable for: 1. Coronary artery bypass graft (CABG). 2. Gastric bypass. 3. Total hysterectomy. 4. Right shoulder surgery. SOCIAL HISTORY: Patient lives with her . She does not use any drugs, alcohol or tobacco products. She is a FULL CODE. Her is her secondary decision maker. FAMILY HISTORY: Notable for dad with chronic obstructive pulmonary disease (COPD), mother with diabetes. REVIEW OF SYSTEMS: All systems reviewed with the patient and otherwise negative. She is complaining of pain in her right groin. She denies any chest discomfort, shortness of breath, lightheadedness in the supine position. PHYSICAL EXAMINATION: Patient's blood pressure is 116/62, pulse 68 and regular, saturations 98% on room air, temperature is normal. GENERAL: The patient is an obese, elderly female who appears her stated age. She appears in no acute distress. HEAD: Atraumatic, normocephalic. Pupils symmetric and react to light. Oropharynx clear. NECK: Supple. LUNGS: Sounds present without rales or rhonchi. HEART: S1, S2. No murmurs or gallops. ABDOMEN: Soft, nontender, nondistended. EXTREMITIES: She has a large right groin hematoma. Her right foot is with adequate color. Capillary refill less than 5 seconds. Palpable pulses. Left groin was also punctured for a second procedure to evaluate the right groin hematoma. There is no hematoma at that site at this time. No evidence of purple toe syndrome in either leg. PERTINENT LABORATORIES: White blood cell count 12, hemoglobin 9.1, which dropped from 12.2, hematocrit 29.5, platelet count 206,000. Sodium 136, potassium 4.9, chloride 103, bicarbonate 32, anion gap 1, BUN 21, creatinine 1, calcium 8.9. IMPRESSION: 1. Status post right lower extremity angiogram complicated by right groin hematoma. 2. Acute blood loss anemia secondary to #1. 3. Diabetes mellitus type 2, insulin dependent. 4. History of coronary artery disease. 5. Hypertension. 6. Chronic lower extremity ulcer. PLAN: Patient will be admitted on observation status to the progressive care unit (PCU). She will be monitored on telemetry. Will hold the majority of her home medications overnight. No anticoagulants will be given. She will be given sequential compression devices (SCDs) only. [facility]. We will transfuse blood products if necessary and repeat CBC in the morning. Patient will be on bed rest overnight. She will be placed on a diabetic diet. She will be discharged home in the morning if she remains stable. Patient will be a FULL CODE.
[2020-11-15 18:45] VITALS: BP 115/65
[2020-11-15 20:15] VITALS: BP 147/61
[2020-11-15] MEDS: NS 1,000 ML IV SCH (20:20)
[2020-11-15 21:24] VITALS: BP 144/98
[2020-11-15] MEDS: ACETAMINOPHEN TAB 650MG DOSE (2X325MG) PO PRN (22:02)
[2020-11-16] VITALS (14 sets, daily range): BP systolic 107–148; BP diastolic 51–86
[2020-11-16 00:05] LABS: ALBUMIN 2.7 GM/DL (3.2-5.2); ALT/SGPT 15 U/L (12-78); BILIRUBIN,TOTAL 0.3 MG/DL (0.2-1.0); BLOOD UREA NITROGEN 18 MG/DL (7-18); CALCIUM LEVEL 7.6 MG/DL (8.8-10.2); CARBON DIOXIDE LEVEL 29 MEQ/L (21-32); CHLORIDE LEVEL 111 MEQ/L (98-107); GLOMERULAR FILTRATION RATE > 60.0 (>39); GLUCOSE, FASTING 207 MG/DL (70-100); POTASSIUM SERUM 4.3 MEQ/L (3.5-5.1); SODIUM LEVEL 142 MEQ/L (136-145)
[2020-11-16 03:07] LABS: MEAN CORPUSCULAR HEMOGLOBIN 31.1 pg (27.0-33.0); MEAN CORPUSCULAR HGB CONC 28.6 g/dl (32.0-36.5); MEAN CORPUSCULAR VOLUME 108.9 fl (80.0-96.0); PLATELET COUNT, AUTOMATED 226 10^3/uL (150-450); RED BLOOD COUNT 2.57 10^6/uL (4.00-5.40); WHITE BLOOD COUNT 15.5 10^3/uL (4.0-10.0)
[2020-11-16] MEDS: NS 1,000 ML IV SCH (03:49)
[2020-11-16 04:14] LABS: BLOOD UREA NITROGEN 18 MG/DL (7-18); CALCIUM LEVEL 7.5 MG/DL (8.8-10.2); CARBON DIOXIDE LEVEL 28 MEQ/L (21-32); CHLORIDE LEVEL 110 MEQ/L (98-107); CREATININE FOR GFR 0.88 MG/DL (0.55-1.30); FERRITIN 237 NG/ML (8-252); GLOMERULAR FILTRATION RATE > 60.0 (>39); GLUCOSE, FASTING 203 MG/DL (70-100); IRON (FE) 33 UG/DL (50-170); PERCENT SATURATION 15.4 % (13.2-45.0); POTASSIUM SERUM 4.4 MEQ/L (3.5-5.1); SODIUM LEVEL 144 MEQ/L (136-145); TOTAL IRON BINDING CAPACITY 214 UG/DL (250-450)
[2020-11-16 05:18] LABS: HEMATOCRIT 25.5 % (36.0-47.0); HEMOGLOBIN 7.5 g/dl (12.0-15.5); MEAN CORPUSCULAR HEMOGLOBIN 29.6 pg (27.0-33.0); MEAN CORPUSCULAR HGB CONC 29.4 g/dl (32.0-36.5); MEAN CORPUSCULAR VOLUME 100.8 fl (80.0-96.0); PLATELET COUNT, AUTOMATED 217 10^3/uL (150-450); RED BLOOD COUNT 2.53 10^6/uL (4.00-5.40); WHITE BLOOD COUNT 15.1 10^3/uL (4.0-10.0)
[2020-11-16 05:39] LABS: BLOOD UREA NITROGEN 17 MG/DL (7-18); CALCIUM LEVEL 7.2 MG/DL (8.8-10.2); CARBON DIOXIDE LEVEL 26 MEQ/L (21-32); CHLORIDE LEVEL 111 MEQ/L (98-107); CREATININE FOR GFR 0.82 MG/DL (0.55-1.30); GLOMERULAR FILTRATION RATE > 60.0 (>39); GLUCOSE, FASTING 199 MG/DL (70-100); POTASSIUM SERUM 4.3 MEQ/L (3.5-5.1); SODIUM LEVEL 143 MEQ/L (136-145)
[2020-11-16] MEDS: HumaLOG INSULIN (NovoLOG) PER UNIT SC SCH ×3 (07:30→17:14)
[2020-11-16 08:57] LABS: FOLATE > 24.0 NG/ML (>5.4); VITAMIN B12 LEVEL 483 PG/ML (247-911)
[2020-11-16] MEDS: ACETAMINOPHEN TAB 650MG DOSE (2X325MG) PO PRN ×2 (10:27→20:29)
--- NOTE | 2020-11-16 11:28 | IRPN ---
[facility] IR Progress Note IR Progress Note DATE: November 16, 2020 FOLLOW-UP: Patient underwent left lower extremity diagnostic angiogram ye sterday, via right groin access. Patient developed a a right groin hematoma after the procedure and was intermittently hypotensive, compounded by morphine. Patient was then taken for a right groin angiograms via left groin access to evaluate right common iliac, internal, external iliac, common femoral, superficial femoral and profunda femoris. This demonstrated no right groin arterial injury, extravasation or pseudoaneurysm. Patient is being treated with compression therapy and observation. Patient's hemoglobin is down to 7 today, hematocrit 25, down from 9.1 and 29 yesterday post procedure. She has received several units of fluids over the past 24 hours. Patient is scheduled for transfusion. ON EXAMINATION: Patient is resting comfortably in bed. Right groin access site now feels softer than yesterday. No increase in hematoma. No pulsatile mass. Bilateral lower extremities are normal in color and warm to touch. Left groin access site unremarkable. LABS: 11/16/2020 hemoglobin 7.5 (down from 9.1 at 2:15 yesterday after the procedure). Hematocrit 25.5 (down from 29.5 yesterday) WBC 15.1 platelets 217 sodium 143 potassium 4.3 BUN 17 creatinine 0.82 GFR greater than 60 IMPRESSION: Patient with left lower extremity nonhealing ulcers, now status post left lower extremity diagnostic angiogram via right groin access. She developed a right groin hematoma post procedure, which was further evaluated with left groin access and right groin angiogram. This demonstrated no arterial injury, pseudoaneurysm or extravasation. Right groin hematoma appears to have stabilized. Blood pressure is stable overnight. Continue compression therapy for right groin hematoma. Avoid all blood thinners. Up and about when able. Rest of management per hospitalist. Thank you for helping to take care of this patient. Allergies Coded Allergies: naproxen (Verified Allergy, Mild, Rash, 11/17/18) Current Medications Current Medications Medications (Trade) Dose Ordered Sig/Maximilian Route PRN Reason Start Time Stop Time Status Last Admin Dose Admin Acetaminophen (Tylenol Tab) 650 mg Q4H PRN PO BERNAL PAIN OR FEVER 11/15/20 17:35 11/16/20 10:27 Acetaminophen/ Hydrocodone Bitart ([place], Anexsia 5/325) 1 tab Q6HP PRN PO MILD/MODERATE PAIN (PS 1-7) 11/15/20 17:35 Dextrose (Dextrose 50%) 25 ml ASDIRECTED PRN IV SEE LABEL COMMENTS 11/15/20 17:40 Glucagon (Glucagon) 1 mg ASDIRECTED PRN SC SEE LABEL COMMENTS 11/15/20 17:40 Glucose (Glucose) 16 GM ASDIRECTED PRN PO SEE LABEL COMMENTS 11/15/20 17:40 Insulin Human Lispro (HumaLOG INSULIN) SEE PROTOCOL TABLE AC SC 11/16/20 07:30 Ondansetron HCl (ZOFRAN INJection) 4 mg Q8H PRN IV NAUSEA 11/15/20 13:50 11/15/20 14:00 Oxycodone/ Acetaminophen (Percocet 5mg/ 325mg Tablet) 2 tab Q6H PRN PO MODERATE PAIN (PS 5-7) 11/15/20 13:50 11/15/20 19:12 DC 11/15/20 13:28 Sodium Chloride 1,000 ml @ 50 mls/hr Q20H IV 11/15/20 19:15 11/16/20 08:53 DC 11/16/20 03:49 VS,Fishbone, I+O VS, Fishbone, I+O Laboratory Tests 11/15/20 14:15 11/15/20 23:11 11/16/20 02:30 11/16/20 04:35 Vital Signs Date Time Temp Pulse Resp B/P (MAP) Pulse Ox O2 Delivery O2 Flow Rate FiO2 11/16/20 10:40 97.7 91 18 130/59 96 Room Air 11/16/20 10:22 2.0 I&O- Last 24 Hours up to 6 AM 11/16/20 06:00 Intake Total 345 ml Output Total 925 ml Balance -580 ml GINGER STODDARD MD November 16, 2020 11:28
[2020-11-16] MEDS ORDERED: DOCUSATE SODIUM 100MG CAPSULE PO PRN (13:50)
[2020-11-16] MEDS: ATORVASTATIN 20 MG TAB PO SCH (14:13)
[2020-11-16] MEDS: FERROUS SULFATE 325MG TAB PO SCH (14:13)
[2020-11-16] MEDS: EZETIMIBE 10 MG TAB (ZETIA) PO SCH (14:14)
[2020-11-16] MEDS: OMEPRAZOLE 20 MG CAP PO SCH (14:14)
--- NOTE | 2020-11-16 14:19 | IPNPDOC ---
Subjective Date Seen The patient was seen on 11/16/20. Subjective Chief Complaint/HPI Heather is here medically stable this morning. Her right groin hematoma appears to have decreased in size. She has no left groin hematoma. She has no evidence of purple toes. She denies having any chest discomfort lightheadedness or shortness of breath at rest. She is afebrile. Objective Physical Examination General Exam: Positive: Alert, Cooperative, No Acute Distress Eye Exam: Positive: Conjunctiva & lids normal ENT Exam: Positive: Pharynx Normal Neck Exam: Positive: Supple Chest Exam: Positive: Normal air movement Heart Exam: Positive: Rate Normal Telemetry: Positive: Sinus Abdomen Exam: Positive: Normal bowel sounds Neuro Exam: Positive: Normal Speech Psych Exam: Positive: Mental status NL Other physical findings Left groin soft to touch right groin hematoma has decreased in size, tender to touch no purple toe syndrome Assessment /Plan Assessment # Status post right lower extremity angiogram complicated by right groin hematoma with acute blood loss anemia - hold BP meds and lasix - tx 2 units prbc - stop IVFs - check cbc after tx and in am - no anticoagulants - oob with assist # Diabetes mellitus type 2, insulin dependent. - continue with SS - hold longacting insulin Dispo: home in am if hgb stable Plan/VTE VTE Prophylaxis Ordered?: No (groin hematoma) VTE Exclusion Mechanical Proph: Other VTE Exclusion Pharmacological: Active Bleeding VS, I&O, 24H, Fishbone Vital Signs/I&O Vital Signs Date Time Temp Pulse Resp B/P (MAP) Pulse Ox O2 Delivery O2 Flow Rate FiO2 11/16/20 13:26 98.0 92 18 107/51 96 Room Air 11/16/20 12:00 2.0 I&O- Last 24 Hours up to 6 AM 11/16/20 06:00 Intake Total 345 ml Output Total 925 ml Balance -580 ml Laboratory Data 24H LABS Laboratory Tests 2 11/15/20 14:15: Nucleated Red Blood Cells % (auto) 0.0 11/15/20 15:58: Bedside Glucose (Misc Panel) 132H 11/15/20 21:01: LQ-Cst-D-Type Natriuretic Peptide 785H 11/15/20 21:56: Bedside Glucose (Misc Panel) 220H 11/15/20 23:11: Anion Gap 2L, Glomerular Filtration Rate > 60.0, Calcium Level 7.6L, Total Bilirubin 0.3, Aspartate Amino Transf (AST/SGOT) 14, Alanine Aminotransferase (ALT/SGPT) 15, Alkaline Phosphatase 104, Total Protein 6.0L, Albumin 2.7L, Albumin/Globulin Ratio 0.8L 11/16/20 02:30: Anion Gap 6L, Glomerular Filtration Rate > 60.0, Calcium Level 7.5L, Nucleated Red Blood Cells % (auto) 0.0, Iron Level 33L, Total Iron Binding Capacity 214L, Transferrin % Saturation 15.4, Ferritin 237, Vitamin B12 Level 483, Folate > 24.0 11/16/20 04:35: Anion Gap 6L, Glomerular Filtration Rate > 60.0, Calcium Level 7.2L, Nucleated Red Blood Cells % (auto) 0.0 11/16/20 11:25: Bedside Glucose (Misc Panel) 190H CBC/BMP Laboratory Tests 11/15/20 14:15 11/15/20 23:11 11/16/20 02:30 11/16/20 04:35 Microbiology Microbiology 11/15/20 Respiratory Virus Panel (PCR) (SIM) - Final, Complete CHEYENNE BULLARD MD November 16, 2020 14:19
[2020-11-16] MEDS: GABAPENTIN 100 MG CAP PO SCH ×2 (15:19→20:27)
[2020-11-16] MEDS: TIMOLOL MALEATE 0.5% OPHTH SOLN 5 ML OU SCH (15:20)
[2020-11-16 15:35] LABS: HEMATOCRIT 28.5 % (36.0-47.0); MEAN CORPUSCULAR HEMOGLOBIN 30.4 pg (27.0-33.0); MEAN CORPUSCULAR HGB CONC 31.6 g/dl (32.0-36.5); MEAN CORPUSCULAR VOLUME 96.3 fl (80.0-96.0); PLATELET COUNT, AUTOMATED 188 10^3/uL (150-450); RED BLOOD COUNT 2.96 10^6/uL (4.00-5.40); WHITE BLOOD COUNT 13.9 10^3/uL (4.0-10.0)
[2020-11-16] MEDS ORDERED: zolPIDEM TARTRATE 5 MG TAB PO SCH (21:00)
[2020-11-17 00:05] VITALS: BP 109/53
[2020-11-17 04:20] VITALS: BP 119/55
[2020-11-17 05:44] LABS: BASO # 0.1 10^3/uL (0.0-0.2); BASO % 0.6 % (0.0-1.0); EOS # 0.4 10^3/uL (0.0-0.5); EOS % 2.9 % (0.0-3.0); HEMATOCRIT 27.4 % (36.0-47.0); HEMOGLOBIN 8.6 g/dl (12.0-15.5); LYMPH # 2.1 10^3/uL (1.5-5.0); LYMPH % 15.5 % (24.0-44.0); MEAN CORPUSCULAR HEMOGLOBIN 29.7 pg (27.0-33.0); MEAN CORPUSCULAR HGB CONC 31.4 g/dl (32.0-36.5); MEAN CORPUSCULAR VOLUME 94.5 fl (80.0-96.0); MONO # 1.4 10^3/uL (0.0-0.8); MONO % 10.3 % (2.0-8.0); NEUTROPHILS # 9.4 10^3/uL (1.5-8.5); NEUTROPHILS % 70.1 % (36.0-66.0); PLATELET COUNT, AUTOMATED 169 10^3/uL (150-450); WHITE BLOOD COUNT 13.5 10^3/uL (4.0-10.0)
[2020-11-17 06:15] LABS: BLOOD UREA NITROGEN 13 MG/DL (7-18); CARBON DIOXIDE LEVEL 26 MEQ/L (21-32); CHLORIDE LEVEL 110 MEQ/L (98-107); CREATININE FOR GFR 0.92 MG/DL (0.55-1.30); GLOMERULAR FILTRATION RATE > 60.0 (>39); GLUCOSE, FASTING 211 MG/DL (70-100); POTASSIUM SERUM 3.7 MEQ/L (3.5-5.1); SODIUM LEVEL 141 MEQ/L (136-145)
[2020-11-17 07:36] VITALS: BP 117/56
[2020-11-17] MEDS: OMEPRAZOLE 20 MG CAP PO SCH (08:28)
[2020-11-17] MEDS: TIMOLOL MALEATE 0.5% OPHTH SOLN 5 ML OU SCH (08:28)
[2020-11-17] MEDS: FERROUS SULFATE 325MG TAB PO SCH (08:28)
[2020-11-17] MEDS: HumaLOG INSULIN (NovoLOG) PER UNIT SC SCH ×3 (08:28→16:43)
[2020-11-17] MEDS: GABAPENTIN 100 MG CAP PO SCH ×2 (08:28→15:38)
[2020-11-17] MEDS: EZETIMIBE 10 MG TAB (ZETIA) PO SCH (08:28)
[2020-11-17] MEDS: ATORVASTATIN 20 MG TAB PO SCH (08:28)
[2020-11-17] MEDS ORDERED: SLF 3 ML SYR IV PRN (09:05)
[2020-11-17 12:00] VITALS: BP 132/58
[2020-11-17 13:00] LABS: HEMATOCRIT 30.8 % (36.0-47.0); HEMOGLOBIN 9.8 g/dl (12.0-15.5); MEAN CORPUSCULAR HEMOGLOBIN 30.4 pg (27.0-33.0); MEAN CORPUSCULAR HGB CONC 31.8 g/dl (32.0-36.5); MEAN CORPUSCULAR VOLUME 95.7 fl (80.0-96.0); PLATELET COUNT, AUTOMATED 197 10^3/uL (150-450); RED BLOOD COUNT 3.22 10^6/uL (4.00-5.40); WHITE BLOOD COUNT 15.4 10^3/uL (4.0-10.0)
[2020-11-17] MEDS ORDERED: SLF 3 ML SYR IV SCH (14:00)
[2020-11-17 15:20] VITALS: BP 160/70
--- NOTE | 2020-11-17 18:35 | DSES ---
DISCHARGE SUMMARY DATE OF ADMISSION: 11/16/2020 DATE OF DISCHARGE: 11/17/2020 DISCHARGE DIAGNOSES: 1. Status post right lower extremity angiogram complicating by right groin hematoma with acute blood loss anemia. 2. Diabetes mellitus type 2. 3. Super morbid obesity. 4. Chronic right lower extremity diabetic wounds, present on admission. CONSULTANTS ON THE CASE: Dr. Clements. PROCEDURES PERFORMED DURING THIS HOSPITALIZATION: None. DISPOSITION: The patient is discharged home. CONDITION ON DISCHARGE: Stable. DISCHARGE INSTRUCTIONS: The patient is to follow-up with her PCP this coming week for repeat CBC as an outpatient. She is advised to abstain from taking aspirin for the next week. She is otherwise to resume all of her other medications. IMAGING STUDIES OBTAINED DURING HOSPITALIZATION: None. PERTINENT LABORATORY DATA: White count 15.4, hemoglobin 9.8, hematocrit 30.8, platelet count 197,000. Sodium 141, potassium 3.7, chloride 102, bicarb 26, anion gap 5, BUN 13, creatinine 0.92, glucose 211, calcium 8. B12 of 483. Folate greater than 24. NT-proBNP was 785. AST 14, ALT 15, total bilirubin 0.3. HOSPITAL COURSE: Heather is a very pleasant 70-year-old woman who had presented for an outpatient elective angiogram of her right lower extremity. Postprocedure, the patient developed a right groin hematoma with a drop in her blood pressure. She was stabilized by Dr. Clements who then proceeded to cannulated the left groin to check on the right groin hematoma to ensure that there was no pseudoaneurysm or extravasation and none was found. The patient was admitted to the step-down unit under the care of the hospitalist service. Anticoagulants were held. She was placed on bed rest. CBC was followed. The patient was noted to have a drop in her hemoglobin from 12.2 with hematocrit of 39 to 9.1 and ultimately to 7.5. Two units of packed red blood cells were transfused. The patient's hemoglobin level improved to 9.8. She is feeling much better. She has been up and moving around and is discharged home in stable condition today. DISCHARGE PHYSICAL EXAMINATION: VITAL SIGNS: The patient's temperature is 98.5, pulse 98 and regular, respirations 18, blood pressure 132/58, O2 saturation is 98% on room air. GENERAL: The patient is alert and oriented x3. She is in no acute distress. She is an elderly woman who appears her stated age. She is morbidly obese. SKIN: Intact and warm to touch. She has a large right groin hematoma, which is improved from admission. She still has some mild oozing from the site. She has no compromise of her lower extremity on the right side. The left groin is soft to palpation. HEENT: Pupils are equal, round, and reactive to light. Oropharynx is clear. NECK: Supple. LUNGS: Sounds present without rales, wheezing, or rhonchi. She has nonlabored breathing. HEART: S1, S2. No audible murmurs, rubs, or gallops. ABDOMEN: Protuberant, nontender, and nondistended with active bowel sounds. EXTREMITIES: The patient's lower extremity wounds are stable without any evidence of acute infection. DISCHARGE MEDICATIONS: 1. The patient is advised to hold aspirin for another week. 2. She is to take Tylenol 600 every six hours as needed for pain. 3. Ascorbic acid 1000 mg daily. 4. Atorvastatin 20 mg daily. 5. Calcium carbonate one tablet twice a day. 6. Cholecalciferol 1000 units daily. 7. Clotrimazole cream twice a day as needed for rash. 8. Colace 100 mg daily as needed for constipation. 9. Escitalopram 5 mg daily. 10. Ezetimibe 10 mg daily. 11. Ferrous sulfate 325 mg daily. 12. Furosemide 40 mg daily. 13. Gabapentin 100 mg p.o. t.i.d. 14. Insulin glargine 15 units twice a day. 15. Lispro sliding scale. 16. Latanoprost 0.05% eye drop, one drop both eyes q. h.s. 17. Reglan 5 mg p.o. daily. 18. Metoprolol 37.5 mg twice a day. 19. Multivitamin one capsule daily. 20. Fish oil 1000 mg daily. 21. Omeprazole 40 mg daily. 22. Timolol 0.5% one drop both eyes daily. 23. Ambien 5 mg p.o. q. h.s. Total of 30 minutes spent completing all discharge paperwork.
--- NOTE | 2020-11-20 11:59 | IRPON ---
IR Postoperative Note Date Of Procedure: November 15, 2020 Time Of Procedure: 16:00 IR Postoperative Note IR Left leg angiogram. IR Below-knee runoff arteriogram. IR Ultrasound-guided right common femoral artery access. IR Ultrasound-guided left common femoral artery access. IR Left leg angiogram. IR Moderate sedation. Clinical Information:Nonhealing left lower extremity ulcers. Physician: Dr. Clements. Procedure: The patient was advised of the benefits, risks, and alternatives of the procedure and informed consent was obtained. A time out was performed with verification of the patient's name, MRN, site of procedure, and type of procedure to be performed. The patient was positioned in the supine position on the angiographic table. The site was prepped and draped in the usual sterile fashion. Moderate sedation was performed by the physician including the presence of an independent trained RN, who assisted in monitoring the patient's level of consciousness and physiological status. Following the administration of fentanyl and Versed, the physician spent 120 minutes of continuous [id number] time with the patient. A coat padder radiograph reveals hardware in the left hip. Ultrasound of the right groin demonstrates patent but calcified right common femoral artery. Lidocaine was used for local anesthesia. The right common femoral artery was accessed, under ultrasound guidance with a microintroducer set. A short 0.018" Geddes wire was inserted under fluoroscopy guidance and the needle was exchanged for a 4 Fr microintroducer sheath. The guidewire and dilator were removed and a 0.035" Bentson wire was advanced under fluoroscopy guidance, and placed into the abdominal aorta. A 6 Fr sheath was placed over the wire. A 5 [place]ic Omni flush catheter was advanced over the wire, under fluoroscopic guidance and used to catheterize the infrarenal abdominal aorta. A pelvic arteriogram was performed and this demonstrates calcified infrarenal abdominal aorta and iliac vasculature. Patent bilateral common iliac, internal iliac and external iliac arteries. Patent bilateral common femoral arteries, with the bulky calcified plaque. A glide wire was advanced under fluoroscopy guidance, through the Omni flush catheter and used to gain, up and over access, into the left external iliac artery. The catheter was exchanged over the wire for Glidecath. The Glidecath in conjunction with the wire, was used under fluoroscopy guidance to catheterize the left common femoral artery. A left leg angiogram was performed and this demonstrates calcified atherosclero tic plaque in the left common femoral artery. Patent proximal and mid superficial femoral artery and patent profunda femoris. An angiogram further down the left leg was performed and this demonstrates, patent distal superficial femoral artery, patent proximal, mid and distal popliteal artery. Patent anterior tibial artery and peroneal artery. Occluded posterior tibial artery. A below knee run off arteriogram was performed and this demonstrates, patent anterior tibial artery and peroneal artery supplying the foot. Occluded posterior tibial artery. Collaterals from the peroneal artery supply the medial and plantar branches of the posterior tibial artery. Patent dorsalis pedis. The catheter and sheath were removed over the wire. A 6 Icelandic 45 cm destination sheath was then advanced over the wire, under fluoroscopic guidance, to try to gain access into the left common iliac artery. However, due to severe tortuosity of iliac vasculature, and bulky calcified plaque at the left common femoral artery, that sheath could not be advanced up and over. Catheter wire and sheath were removed, pressure held and hemostasis achieved. In the immediate postoperative period, patient developed a right groin hematoma associated with hypotension. Therefore, the patient was taken back to the angio suite for a right groin angiogram. Ultrasound of the left groin demonstrated calcified but patent left common femoral artery. Lidocaine was used for local anesthesia. The left common femoral artery was accessed, under ultrasound guidance with a microintroducer set. A short 0.018" Geddes wire was inserted under fluoroscopy guidance and the needle was exchanged for a 4 Fr microintroducer sheath. The guidewire and dilator were removed and a 0.035" Bentson wire was advanced under fluoroscopy guidance, and placed into the abdominal aorta. A 6 Fr sheath was placed over the wire. An Omni flush catheter was advanced over the wire and used under fluoroscopy guidance to catheterize the infrarenal abdominal aorta. A pelvic angiogram was performed to evaluate the right groin and this demonstrates normal flow in the right common iliac, internal iliac and external iliac artery without vessel injury, rupture, extravasation or pseudoaneurysm. Calcified plaque in the right common femoral artery as seen previously, but no common femoral artery injury, pseudoaneurysm or extravasation. An angiogram further down the right thigh was performed and this demonstrates unremarkable right superficial femoral artery and profunda femoris with no indications of vascular injury, extravasation, rupture or pseudoaneurysm. No extravasation from distal branch vessels or collaterals. The left groin sheath, catheter and wire were removed, pressure held and hemostasis achieved. A sterile dressing was applied to the site. The patient tolerated the procedure well and was returned to the PRU in stable condition. EBL: < 5 mL. Complications:Right groin hematoma. This was further evaluated with angiography which demonstrated no right groin vascular injury, extravasation or pseudoaneurysm. Patient was treated with compression and in-house observation. Patient was discharged in stable condition. Impression: 1. Left leg angiogram demonstrates calcified bulky plaque in the left common femoral artery. 2. Patent proximal, mid and distal superficial femoral artery. 3. Patent proximal, mid and distal popliteal artery. 4. Patent anterior tibial artery and peroneal artery. Peroneal artery supplies collaterals to the plantar and calcaneal branches. 5. Occluded posterior tibial artery. Patient may benefit from retrograde access to try to recanalize the posterior tibial artery. We will discuss this at foll ow-up. 7. Patient may benefit from left common femoral artery endarterectomy and will be referred appropriately. Thank you for this referral. Cc GINGER Rico MD November 20, 2020 11:59
== END 2020-11-17 17:14 | disposition home or self-care (01) | DRG 920 ==
LOC: M IRPRO 09:10 → M PCU 18:37 → OBSVTOIN 11-16 09:01
PROVIDERS: ADMIT Internal Medicine; ATTEND Internal Medicine
PROC: B40DYZZ Plain Radiography of Aorta and Bilateral Lower Extremity Arteries using Other Contrast (ICD-10-PCS; principal; 2020-11-16)
PROC: 30233N1 Transfusion of Nonautologous Red Blood Cells into Peripheral Vein, Percutaneous Approach (ICD-10-PCS; 2020-11-16)
DX: M96.841 Postprocedural hematoma of a musculoskeletal structure following other procedure (principal); D62 Acute posthemorrhagic anemia; L97.919 Non-pressure chronic ulcer of unspecified part of right lower leg with unspecified severity; Z68.41 Body mass index [BMI] 40.0-44.9, adult; I25.10 Atherosclerotic heart disease of native coronary artery without angina pectoris; E11.22 Type 2 diabetes mellitus with diabetic chronic kidney disease; I12.9 Hypertensive chronic kidney disease with stage 1 through stage 4 chronic kidney disease, or unspecified chronic kidney disease; I95.81 Postprocedural hypotension; E11.40 Type 2 diabetes mellitus with diabetic neuropathy, unspecified; E66.01 Morbid (severe) obesity due to excess calories; N18.30 Chronic kidney disease, stage 3 unspecified; E11.51 Type 2 diabetes mellitus with diabetic peripheral angiopathy without gangrene; E11.622 Type 2 diabetes mellitus with other skin ulcer; Z79.82 Long term (current) use of aspirin; Z79.899 Other long term (current) drug therapy; Z95.1 Presence of aortocoronary bypass graft; Y84.2 Radiological procedure and radiotherapy as the cause of abnormal reaction of the patient, or of later complication, without mention of misadventure at the time of the procedure; Z98.84 Bariatric surgery status; Z79.4 Long term (current) use of insulin

== ENCOUNTER 2020-12-01 13:38 | Emergency (ER) | payer MEDICARE ==
[~2020-12-01] VITALS: Ht 157.5 cm; Wt 99.5 kg
[2020-12-01 16:19] LABS: HEMOGLOBIN 10.7 g/dl (12.0-15.5); MEAN CORPUSCULAR HEMOGLOBIN 29.7 pg (27.0-33.0); MEAN CORPUSCULAR HGB CONC 30.6 g/dl (32.0-36.5); MEAN CORPUSCULAR VOLUME 97.2 fl (80.0-96.0); PLATELET COUNT, AUTOMATED 397 10^3/uL (150-450); WHITE BLOOD COUNT 14.4 10^3/uL (4.0-10.0)
--- NOTE | 2020-12-01 16:19 | REP ---
INDICATION: ro femoral pseudo aneurysm right. COMPARISON: None. TECHNIQUE: Real time villalpando scale and Duplex Doppler evaluation of the right common femoral artery and superficial femoral artery using linear high frequency transducer. FINDINGS: A large complex area of fluid is seen in the right inguinal region anterior and superior to the common femoral artery, containing a internal debris. This measures 13.6 x 4.2 cm. There is no visible connection with the underlying common femoral and superficial femoral arteries. Patent flow is seen in the common femoral and superficial femoral arteries. IMPRESSION: Large complex fluid collection right inguinal region 13.6 x 4.2 cm. No sonographic evidence of pseudoaneurysm. Patent flow in the right common femoral and superficial femoral arteries. <Electronically signed by Jose Cruz Villalpando > 12/01/20 1349
[2020-12-01 16:31] LABS: INR 0.97; PROTHROMBIN TIME 13.1 SECONDS (12.5-14.3)
[2020-12-01 16:32] LABS: PARTIAL THROMBOPLASTIN TIME 29.2 SECONDS (24.2-38.5)
[2020-12-01 16:37] LABS: CALCIUM LEVEL 9.9 MG/DL (8.8-10.2); CREATININE FOR GFR 1.14 MG/DL (0.55-1.30); POTASSIUM SERUM 4.1 MEQ/L (3.5-5.1)
[2020-12-01 17:10] LABS: RSV AMPLIFICATION NEGATIVE (NEGATIVE)
[2020-12-01 19:01] VITALS: BP 162/74
== END 2020-12-01 19:16 | disposition short-term general hospital (02) ==
LOC: M ED 13:38
DX: I97.630 Postprocedural hematoma of a circulatory system organ or structure following a cardiac catheterization (principal); E11.9 Type 2 diabetes mellitus without complications; I10 Essential (primary) hypertension; N28.9 Disorder of kidney and ureter, unspecified; D64.9 Anemia, unspecified; K21.9 Gastro-esophageal reflux disease without esophagitis; Z88.8 Allergy status to other drugs, medicaments and biological substances; Z79.899 Other long term (current) drug therapy; Z79.82 Long term (current) use of aspirin; Z79.4 Long term (current) use of insulin

== ENCOUNTER → 2021-04-18 | Outpatient (REF) | payer MEDICARE ==
[2021-04-18 18:01] LABS: CREATININE FOR GFR 1.4 MG/DL (0.55-1.30); GLOMERULAR FILTRATION RATE 39.4 (>39)
== END ==
LOC: M LABDRWAD 17:16
PROVIDERS: ATTEND Surgery Vascular Surgery
DX: I70.513 Atherosclerosis of nonautologous biological bypass graft(s) of the extremities with intermittent claudication, bilateral legs (principal)

== ENCOUNTER → 2022-03-06 | Outpatient (CLI) | payer MEDICARE, OTHER ==
[~2022-03-06] MED LIST changes: -D31000TA2 PO; +LOSA100T45 PO; -LOSA100T50 PO; +LOSA50TA28 PO; -LOSA50TA88 PO; +VITA100093 PO
== END ==
LOC: M WHC 12:26
PROVIDERS: ATTEND Internal Medicine
DX: Z12.31 Encounter for screening mammogram for malignant neoplasm of breast (principal)

== ENCOUNTER → 2022-03-14 | Outpatient (REF) | payer OTHER ==
[2022-03-14 17:17] LABS: PERCENT SATURATION 22.7 % (13.2-45.0)
== END ==
LOC: M LAB REF 16:03
PROVIDERS: ATTEND Internal Medicine
DX: D64.9 Anemia, unspecified (principal)

== ENCOUNTER 2022-06-29 13:44 | Emergency (ER) | payer OTHER, MEDICARE ==
[~2022-06-29] VITALS: Ht 157.5 cm; Wt 96.8 kg
[2022-06-29] MEDS ORDERED: GUAISYP9 PO (15:23)
[2022-06-29] MEDS ORDERED: BENZ200C70 PO (15:23)
[2022-06-29] MEDS ORDERED: SEMA2PEN PO (15:23)
[2022-06-29] MEDS ORDERED: METO50TA7 PO (15:23)
[2022-06-29] MEDS ORDERED: LANTINJ4 (15:23)
[2022-06-29 15:27] LABS: BASO # 0.1 10^3/uL (0.0-0.2); BASO % 0.9 % (0.0-1.0); EOS # 0.1 10^3/uL (0.0-0.5); EOS % 0.9 % (0.0-3.0); HEMATOCRIT 39.3 % (36.0-47.0); HEMOGLOBIN 12.5 g/dl (12.0-15.5); LYMPH % 13.5 % (24.0-44.0); MEAN CORPUSCULAR HEMOGLOBIN 32.5 pg (27.0-33.0); MEAN CORPUSCULAR HGB CONC 31.8 g/dl (32.0-36.5); MEAN CORPUSCULAR VOLUME 102.1 fl (80.0-96.0); MONO # 1.3 10^3/uL (0.0-0.8); MONO % 8.4 % (2.0-8.0); NEUTROPHILS # 11.2 10^3/uL (1.5-8.5); NEUTROPHILS % 75.6 % (36.0-66.0); PLATELET COUNT, AUTOMATED 251 10^3/uL (150-450); RED BLOOD COUNT 3.85 10^6/uL (4.00-5.40); WHITE BLOOD COUNT 14.9 10^3/uL (4.0-10.0)
[2022-06-29 15:38] LABS: RSV AMPLIFICATION NEGATIVE (NEGATIVE)
[2022-06-29 15:57] LABS: CK-MB VALUE MASS < 1.0 NG/ML (<3.6)
[2022-06-29 15:58] LABS: ALBUMIN 2.5 G/DL (3.2-5.2); ALKALINE PHOSPHATASE 108 U/L (46-116); ALT/SGPT 26 U/L (7.0-40); AST/SGOT 24 U/L (<34); BILIRUBIN,TOTAL 0.5 MG/DL (0.3-1.2); BLOOD UREA NITROGEN 21 MG/DL (9-23); CALCIUM LEVEL 8.4 MG/DL (8.3-10.6); CARBON DIOXIDE LEVEL 26 MMOL/L (20-31); CHLORIDE LEVEL 102 MMOL/L (98-107); CPK CREATINE PHOSPHOKINASE 37 U/L (34-145); CREATININE FOR GFR 1.07 MG/DL (0.55-1.30); GLOMERULAR FILTRATION RATE 53.5 (>39); GLUCOSE, FASTING 118 MG/DL (74-106); POTASSIUM SERUM 4.8 MMOL/L (3.5-5.1); SODIUM LEVEL 138 MMOL/L (136-145); TOTAL PROTEIN 6.7 G/DL (5.7-8.2)
[2022-06-29] MEDS ORDERED: NS 1,000 ML IV ONE (16:00)
[2022-06-29 17:23] LABS: CK-MB VALUE MASS < 1.0 NG/ML (<3.6)
[2022-06-29 17:38] LABS: CPK CREATINE PHOSPHOKINASE 42 U/L (34-145); MB/CK RELATIVE INDEX 2.38 (< OR =4)
[2022-06-29] MEDS ORDERED: LEXA5TAB13 PO (18:49)
[2022-06-29] MEDS ORDERED: NOVOINJ3 SC (18:49)
[2022-06-29] MEDS ORDERED: BASA100I SC (18:49)
[2022-06-29] MEDS ORDERED: HOME MED LIST COMPLETE! XX SCH (18:50)
[2022-06-29 19:16] VITALS: BP 120/59
== END 2022-06-29 19:38 | disposition home or self-care (01) ==
LOC: M ED 13:44 → EDBD 13:44 → M ED 19:38
DX: M62.81 Muscle weakness (generalized) (principal); I10 Essential (primary) hypertension; E11.311 Type 2 diabetes mellitus with unspecified diabetic retinopathy with macular edema; G62.9 Polyneuropathy, unspecified; N18.9 Chronic kidney disease, unspecified; Z95.1 Presence of aortocoronary bypass graft; Z98.61 Coronary angioplasty status; Z79.82 Long term (current) use of aspirin; Z79.4 Long term (current) use of insulin; Z79.899 Other long term (current) drug therapy; Z88.6 Allergy status to analgesic agent

== ENCOUNTER → 2022-10-15 | Outpatient (REF) | payer OTHER ==
[~2022-10-15] MED LIST changes: +BENZ200C70 PO; +BRIM1OPD OD; -COZA100T2 PO; +COZA100T3 PO; +GUAISYP9 PO; +LANTINJ4; +LANTINJ4 SC; +LEVO5OPD OU; +LEXA5TAB13 PO; +METO50TA7 PO; +NOVOINJ3 SC; +SEMA2PEN PO; +TIMO0.5S20 OU; +VITA-243 PO
== END ==
LOC: M LAB REF 12:39
PROVIDERS: ATTEND Internal Medicine
DX: I50.32 Chronic diastolic (congestive) heart failure (principal)

== ENCOUNTER 2022-10-17 06:44 | Day surgery (SDC) | payer OTHER ==
[~2022-10-17] VITALS: Ht 157.5 cm; Wt 89.9 kg
[~2022-10-17 06:44] MED LIST changes: +NS 1,000 ML IV ONE
[2022-10-17] MEDS ORDERED: LIDOCAINE 2% 100MG/5ML SDV (FOR ANES.) As Ordered ONE (07:49)
[2022-10-17] MEDS ORDERED: propofoL 500 MG/50 ML VIAL As Ordered ONE (07:49)
[2022-10-17] MEDS ORDERED: GLUCAGON INJ 1MG VIAL As Ordered ONE (08:01)
[2022-10-17 08:37] VITALS: BP 137/67
== END 2022-10-17 08:38 | disposition home or self-care (01) ==
LOC: M OPP 06:44
PROVIDERS: ATTEND Internal Medicine Gastroenterology
DX: Z86.010 Personal history of colon polyps (principal); Z80.0 Family history of malignant neoplasm of digestive organs; D12.0 Benign neoplasm of cecum; K63.5 Polyp of colon; K64.8 Other hemorrhoids; K57.30 Diverticulosis of large intestine without perforation or abscess without bleeding; Z79.02 Long term (current) use of antithrombotics/antiplatelets; Z79.82 Long term (current) use of aspirin; Z79.84 Long term (current) use of oral hypoglycemic drugs; Z79.891 Long term (current) use of opiate analgesic; Z79.899 Other long term (current) drug therapy; Z88.8 Allergy status to other drugs, medicaments and biological substances; Z80.1 Family history of malignant neoplasm of trachea, bronchus and lung; Z80.3 Family history of malignant neoplasm of breast
CPT/HCPCS: 45385; 88305; J1610

== ENCOUNTER → 2022-11-13 | Outpatient (CLI) | payer OTHER ==
[~2022-11-13] MED LIST changes: -LOSA100T45 PO; +LOSA100T46 PO; -NS 1,000 ML IV ONE
== END ==
LOC: M RAD 10:38
PROVIDERS: ATTEND Internal Medicine
DX: I73.9 Peripheral vascular disease, unspecified (principal); R09.89 Other specified symptoms and signs involving the circulatory and respiratory systems

== ENCOUNTER → 2024-01-20 | Outpatient (REF) | payer OTHER ==
[~2024-01-20] MED LIST changes: -COZA100T3 PO; +LOSA-530 PO
[2024-01-20 17:57] LABS: PERCENT SATURATION 29.3 % (13.2-45.0)
[2024-01-20 18:01] LABS: FERRITIN 355.2 NG/ML (7.3-270.7)
== END ==
LOC: M LAB REF 16:33
PROVIDERS: ATTEND Internal Medicine
DX: R53.83 Other fatigue (principal)

== ENCOUNTER → 2024-05-24 | Outpatient (CLI) | payer OTHER | LOC: M WHC 07:30 | PROVIDERS: ATTEND Internal Medicine | DX: Z12.31 Encounter for screening mammogram for malignant neoplasm of breast (principal) ==

== ENCOUNTER → 2024-08-03 | Outpatient (REF) | payer OTHER, MEDICARE ==
[2024-08-03 15:28] LABS: PERCENT SATURATION 30.4 % (13.2-45.0)
== END ==
LOC: M LAB REF 13:15
PROVIDERS: ATTEND Internal Medicine
DX: D50.9 Iron deficiency anemia, unspecified (principal); N18.32 Chronic kidney disease, stage 3b

== ENCOUNTER → 2024-11-11 | Outpatient (CLI) | payer MEDICARE ==
[~2024-11-11] MED LIST changes: -AMBI5TAB PO; -BRIM1OPD OD; +BRIM5DRO25 OD; +ZOLP-532 PO
== END ==
LOC: M WUC 11:43
PROVIDERS: ATTEND Internal Medicine
DX: R06.02 Shortness of breath (principal)

== ENCOUNTER → 2025-03-04 | Outpatient (CLI) | payer MEDICARE ==
[~2025-03-04] MED LIST changes: -VITA100024 PO; +VITA100051 PO
== END ==
LOC: M WHC 09:36
PROVIDERS: ATTEND Internal Medicine
DX: M81.0 Age-related osteoporosis without current pathological fracture (principal)

== ENCOUNTER → 2025-06-08 | Outpatient (CLI) | payer MEDICARE ==
[~2025-06-08] MED LIST changes: -EZET10TA21 PO; +EZET10TA57 PO
== END ==
LOC: M WHC 06:37
PROVIDERS: ATTEND Internal Medicine
DX: Z12.31 Encounter for screening mammogram for malignant neoplasm of breast (principal); R92.313 Mammographic fatty tissue density, bilateral breasts